=== PATIENT | female | born 1955 | race Caucasian/White ===

== ENCOUNTER → 2017-12-28 09:22 | Outpatient (CLI) | payer OTHER, MEDICARE, SELFPAY ==
[2017-12-28 10:54] LABS: Free T4, Direct Thyroxine 1.07 ng/dL (0.78-2.19)
== END ==
PROVIDERS: PCP Internal Medicine; Visit Provider Internal Medicine
DX: R00.2 Palpitations (principal)
CPT/HCPCS: 36415; 84436; 84439

== ENCOUNTER 2018-01-10 14:59 | Emergency (ER) | payer OTHER, MEDICARE, SELFPAY ==
--- NOTE | 2018-01-10 | DI.RAD.S_ITS ---
PROCEDURE: XR FOOT RT MIN 3V INDICATIONS: ROLLED ANKLE AND FOOT TECHNIQUE: 3 views of the foot were acquired. COMPARISON: [facility], CR, XR ANKLE RT MIN 3V, 01/10/2018, 15:05. FINDINGS: Bones: There is a minimally displaced first metatarsal shaft fracture. Additionally, there is a nondisplaced fracture at the base of the second proximal phalanx. Cortical irregularity in the superior aspect of the anterior process of talus. Surgical anchors in calcaneus consistent with prior Achilles tendon repair. Soft tissues: No tibiotalar joint effusion. Achilles tendon appears thickened. IMPRESSION: 1. Minimally displaced first metatarsal shaft fracture. 2. Nondisplaced fracture at the second proximal phalangeal base. 3. Cortical irregularity in the superior aspect of the anterior process of talus. Dictated by: Avery Pizarro M.D. on 01/10/2018 at 15:52 Approved by: Avery Pizarro M.D. on 01/10/2018 at 15:56
[2018-01-10 15:20] VITALS: BP 135/86; PULSE 69; RESP 15; TEMP 37.1; O2SAT 96; BMI 33.7
--- NOTE | 2018-01-10 15:22 | DI.RAD.S_ITS ---
PROCEDURE: XR ANKLE RT MIN 3V INDICATIONS: right ankle injury TECHNIQUE: 3 views of the ankle were acquired. COMPARISON: None. FINDINGS: Bones: Small osseous densities are noted in the anterior process of talus consistent with fracture. Ankle mortise is normally aligned. No suspicious bony lesions. Surgical anchors are noted in calcaneus for dislocated tendon attachment. Soft tissues: No tibiotalar joint effusion. Achilles tendon appears thickened distally. IMPRESSION: 1. Fracture of the anterior process talus. 2. Achilles tendon repair. Dictated by: Avery Pizarro M.D. on 01/10/2018 at 15:44 Approved by: Avery Pizarro M.D. on 01/10/2018 at 15:48
--- NOTE | 2018-01-10 16:05 | ED.FALL ---
HPI - Fall <Malissa Levy PA-C - Last Filed: 01/10/18 22:35> General Chief Complaint: Fall Stated Complaint: RT FOOT/ANKLE, LT SHOULDER PAIN Time Seen by Provider: 01/10/18 16:05 Source: patient Mode of arrival: ambulatory Limitations: no limitations History of Present Illness HPI Narrative: This 62-year-old female was walking on a wet shop floor when her right foot went out from under her. She states that her right ft twisted and pitch forward. She may have hit a refrigerator with it, not sure. She states that she landed on the back of her legs. She has had foot and ankle pain since then. Tried to walk with a flatfoot but painful. She states her sensation is limited due to neuropathy. She denies any other injuries such as head contusion. She denies new back or neck pain. Related Data Allergies Allergy/AdvReac Type Severity Reaction Status Date / Time Penicillins [PENICILLINS] Allergy Unknown Verified 01/10/18 15:20 Sulfa (Sulfonamide Allergy Unknown Verified 01/10/18 15:20 Antibiotics) [SULFA (SULFONAMIDE ANTIBIOTICS)] Review of Systems <Malissa Levy PA-C - Last Filed: 01/10/18 22:35> Review of Systems All systems reviewed & are unremarkable except as noted in HPI and below Exam <Malissa Levy PA-C - Last Filed: 01/10/18 22:35> Narrative Exam Narrative: GENERAL APPEARANCE: Patient sitting comfortably, in no distress. LUNGS: Clear to auscultation bilaterally. HEART: Rate and rhythm regular without murmur, normal S1 and S2, no S3 or S4. MS: Right foot and ankle there is moderate effusion. She has tenderness over the 1st proximal to mid MT, minimal TTP over 2nd MT. She is able to plantar and dorsiflex the toes. No tenderness over the remaining metatarsals or toes. She does have tenderness over the posterior heel. Achilles is intact by palpation. There is no effusion over the right knee, full flexion and extension without tenderness. NEUROVASCULAR: Right foot is warm and pink. Sensation to touch is intact. PT and DP pulses 1+ and 2+ respectively. PT and DP pulses 2+ bilaterally on the right. Pulses are strong on Doppler. Initial Vital Signs Initial Vital Signs: Vital Signs Temperature 98.7 F 01/10/18 15:20 Pulse Rate 69 01/10/18 15:20 Respiratory Rate 15 01/10/18 15:20 Blood Pressure 135/86 H 01/10/18 15:20 Pulse Oximetry 96 01/10/18 15:20 <John Park MD - Last Filed: 01/11/18 18:18> Initial Vital Signs Initial Vital Signs: Vital Signs Temperature 98.7 F 01/10/18 15:20 Pulse Rate 69 01/10/18 15:20 Respiratory Rate 15 01/10/18 15:20 Blood Pressure 135/86 H 01/10/18 15:20 Pulse Oximetry 96 01/10/18 15:20 Course <Malissa Levy PA-C - Last Filed: 01/10/18 22:35> Additional Information: Patient does not have evidence of vascular compromise. She does have effusion which makes palpating her pulses more difficult. She has a history of neuropathy and sensation appears to be at baseline. I reviewed her x-rays with Dr. Park and her talus fracture appears to be more of a nondisplaced avulsion. He advised posterior splint and follow up with Orthopedics, and patient is agreeable with this plan. Orders Ordered: Discontinued Medications Hydrocodone Bitart/Acetaminophen (Vicodin Prepack) 1 bottle MISC SEEINSTR ONE Stop: 01/10/18 18:26 Last Admin: 01/10/18 18:36 Dose: 1 bottle Vital Signs - 8 hr 01/10/18 15:20 01/10/18 17:15 01/10/18 18:28 Temperature 98.7 F Pulse Rate 69 64 56 L Respiratory Rate 15 14 17 Blood Pressure 135/86 H Blood Pressure [Left Arm] 158/90 H 168/69 H Pulse Oximetry 96 95 100 <John Park MD - Last Filed: 01/11/18 18:18> Orders Ordered: Discontinued Medications Hydrocodone Bitart/Acetaminophen (Vicodin Prepack) 1 bottle MISC SEEINSTR ONE Stop: 01/10/18 18:26 Last Admin: 01/10/18 18:36 Dose: 1 bottle Vital Signs - 8 hr 01/10/18 15:20 01/10/18 17:15 01/10/18 18:28 Temperature 98.7 F Pulse Rate 69 64 56 L Respiratory Rate 15 14 17 Blood Pressure 135/86 H Blood Pressure [Left Arm] 158/90 H 168/69 H Pulse Oximetry 96 95 100 MDM - Fall <Malissa Levy PA-C - Last Filed: 01/10/18 22:35> Imaging Data extremity: Radiologist's impression: View Report History [address] [address] XRay Report Signed Patient: Luz Mireles MR#: [id number] : 1955 Acct:[id number] Age/Sex: 62 / F Date of Service: 01/10/18 Loc: ED Accession Number: [id number] Procedure: XR foot RT min 3V Ordering Provider: Malissa Levy P.A-C PROCEDURE: XR FOOT RT MIN 3V INDICATIONS: ROLLED ANKLE AND FOOT TECHNIQUE: 3 views of the foot were acquired. COMPARISON: [facility], , XR ANKLE RT MIN 3V, 01/10/2018, 15:05. FINDINGS: Bones: There is a minimally displaced first metatarsal shaft fracture. Additionally, there is a nondisplaced fracture at the base of the second proximal phalanx. Cortical irregularity in the superior aspect of the anterior process of talus. Surgical anchors in calcaneus consistent with prior Achilles tendon repair. Soft tissues: No tibiotalar joint effusion. Achilles tendon appears thickened. IMPRESSION: 1. Minimally displaced first metatarsal shaft fracture. 2. Nondisplaced fracture at the second proximal phalangeal base. View Report History [address] [address] XRay Report Signed Patient: Luz Mireles MR#: [id number] : 1955 Acct:[id number] Age/Sex: 62 / F Date of Service: 01/10/18 Loc: ED Accession Number: [id number] Procedure: XR ankle RT min 3V Ordering Provider: Malissa Levy P.A-C PROCEDURE: XR ANKLE RT MIN 3V INDICATIONS: right ankle injury TECHNIQUE: 3 views of the ankle were acquired. COMPARISON: None. FINDINGS: Bones: Small osseous densities are noted in the anterior process of talus consistent with fracture. Ankle mortise is normally aligned. No suspicious bony lesions. Surgical anchors are noted in calcaneus for dislocated tendon attachment. Soft tissues: No tibiotalar joint effusion. Achilles tendon appears thickened distally. IMPRESSION: 1. Fracture of the anterior process talus. 2. Achilles tendon repair. Dictated by: Avery Pizarro M.D. on 01/10/2018 at 15:44 Approved by: Avery Pizarro M.D. on 01/10/2018 at 15:48 3. Cortical irregularity in the superior aspect of the anterior process of talus. Dictated by: Avery Pizaror M.D. on 01/10/2018 at 15:52 Approved by: Avery Pizarro M.D. on 01/10/2018 at 15:56 Discharge Plan Departure Patient Disposition: Home, Self-Care Clinical Impression: Avulsion fracture of talus, Multiple closed fractures of metatarsal bone Discharge Date/Time: 01/10/18 18:40 Interventions: ED Discharge Assessment Last Done: 01/10/18 19:00 Instructions: DI for Foot Fracture, DI for Talus Fracture Activity Restrictions/Additional Instructions: Please keep your foot in the splint and use crutches whenever weight-bearing. Do not put weight on the foot. Rest and elevate the leg and foot as much as possible. Take Tylenol as needed for pain. Call [facility] 1st thing tomorrow morning and let them know you have fractures in the Talus bone as well as the bones in your foot and need to be seen early next week or tomorrow for follow-up. Let them know your a previous patient of Dr. Puente. Return if you have increased pain, swelling or other problems in the interim. Referrals: [facility] [Provider Group] Noah Ray MD [Primary Care Provider] - <John Park MD - Last Filed: 01/11/18 18:18> Cosign ED Attending Sadafature Attestation: I was available in the emergency department to answer questions and assist if needed. I agree with the document content and management plan.
--- NOTE | 2018-01-10 16:08 | ED_ITS ---
HPI - Fall <Malissa Levy PA-C - Last Filed: 01/10/18 22:35> General Chief Complaint: Fall Stated Complaint: RT FOOT/ANKLE, LT SHOULDER PAIN Time Seen by Provider: 01/10/18 16:05 Source: patient Mode of arrival: ambulatory Limitations: no limitations History of Present Illness HPI Narrative: This 62-year-old female was walking on a wet shop floor when her right foot went out from under her. She states that her right ft twisted and pitch forward. She may have hit a refrigerator with it, not sure. She states that she landed on the back of her legs. She has had foot and ankle pain since then. Tried to walk with a flatfoot but painful. She states her sensation is limited due to neuropathy. She denies any other injuries such as head contusion. She denies new back or neck pain. Related Data Allergies Allergy/AdvReac Type Severity Reaction Status Date / Time Penicillins [PENICILLINS] Allergy Unknown Verified 01/10/18 15:20 Sulfa (Sulfonamide Allergy Unknown Verified 01/10/18 15:20 Antibiotics) [SULFA (SULFONAMIDE ANTIBIOTICS)] Review of Systems <Malissa Levy PA-C - Last Filed: 01/10/18 22:35> Review of Systems All systems reviewed & are unremarkable except as noted in HPI and below Exam <Malissa Levy PA-C - Last Filed: 01/10/18 22:35> Narrative Exam Narrative: GENERAL APPEARANCE: Patient sitting comfortably, in no distress. LUNGS: Clear to auscultation bilaterally. HEART: Rate and rhythm regular without murmur, normal S1 and S2, no S3 or S4. MS: Right foot and ankle there is moderate effusion. She has tenderness over the 1st proximal to mid MT, minimal TTP over 2nd MT. She is able to plantar and dorsiflex the toes. No tenderness over the remaining metatarsals or toes. She does have tenderness over the posterior heel. Achilles is intact by palpation. There is no effusion over the right knee, full flexion and extension without tenderness. NEUROVASCULAR: Right foot is warm and pink. Sensation to touch is intact. PT and DP pulses 1+ and 2+ respectively. PT and DP pulses 2+ bilaterally on the right. Pulses are strong on Doppler. Initial Vital Signs Initial Vital Signs: Vital Signs Temperature 98.7 F 01/10/18 15:20 Pulse Rate 69 01/10/18 15:20 Respiratory Rate 15 01/10/18 15:20 Blood Pressure 135/86 H 01/10/18 15:20 Pulse Oximetry 96 01/10/18 15:20 <John Park MD - Last Filed: 01/11/18 18:18> Initial Vital Signs Initial Vital Signs: Vital Signs Temperature 98.7 F 01/10/18 15:20 Pulse Rate 69 01/10/18 15:20 Respiratory Rate 15 01/10/18 15:20 Blood Pressure 135/86 H 01/10/18 15:20 Pulse Oximetry 96 01/10/18 15:20 Course <Malissa Levy PA-C - Last Filed: 01/10/18 22:35> Additional Information: Patient does not have evidence of vascular compromise. She does have effusion which makes palpating her pulses more difficult. She has a history of neuropathy and sensation appears to be at baseline. I reviewed her x-rays with Dr. Park and her talus fracture appears to be more of a nondisplaced avulsion. He advised posterior splint and follow up with Orthopedics, and patient is agreeable with this plan. Orders Ordered: Discontinued Medications Hydrocodone Bitart/Acetaminophen (Vicodin Prepack) 1 bottle MISC SEEINSTR ONE Stop: 01/10/18 18:26 Last Admin: 01/10/18 18:36 Dose: 1 bottle Vital Signs - 8 hr 01/10/18 15:20 01/10/18 17:15 01/10/18 18:28 Temperature 98.7 F Pulse Rate 69 64 56 L Respiratory Rate 15 14 17 Blood Pressure 135/86 H Blood Pressure [Left Arm] 158/90 H 168/69 H Pulse Oximetry 96 95 100 <John Park MD - Last Filed: 01/11/18 18:18> Orders Ordered: Discontinued Medications Hydrocodone Bitart/Acetaminophen (Vicodin Prepack) 1 bottle MISC SEEINSTR ONE Stop: 01/10/18 18:26 Last Admin: 01/10/18 18:36 Dose: 1 bottle Vital Signs - 8 hr 01/10/18 15:20 01/10/18 17:15 01/10/18 18:28 Temperature 98.7 F Pulse Rate 69 64 56 L Respiratory Rate 15 14 17 Blood Pressure 135/86 H Blood Pressure [Left Arm] 158/90 H 168/69 H Pulse Oximetry 96 95 100 MDM - Fall <Malissa Levy PA-C - Last Filed: 01/10/18 22:35> Imaging Data extremity: Radiologist's impression: View Report History [address] [address] XRay Report Signed Patient: Luz Mireles MR#: [id number] : 1955 Acct:[id number] Age/Sex: 62 / F Date of Service: 01/10/18 Loc: ED Accession Number: [id number] Procedure: XR foot RT min 3V Ordering Provider: Malissa Levy P.A-C PROCEDURE: XR FOOT RT MIN 3V INDICATIONS: ROLLED ANKLE AND FOOT TECHNIQUE: 3 views of the foot were acquired. COMPARISON: [facility], , XR ANKLE RT MIN 3V, 01/10/2018, 15:05. FINDINGS: Bones: There is a minimally displaced first metatarsal shaft fracture. Additionally, there is a nondisplaced fracture at the base of the second proximal phalanx. Cortical irregularity in the superior aspect of the anterior process of talus. Surgical anchors in calcaneus consistent with prior Achilles tendon repair. Soft tissues: No tibiotalar joint effusion. Achilles tendon appears thickened. IMPRESSION: 1. Minimally displaced first metatarsal shaft fracture. 2. Nondisplaced fracture at the second proximal phalangeal base. View Report History [address] [address] XRay Report Signed Patient: Luz Mireles MR#: [id number] : 1955 Acct:[id number] Age/Sex: 62 / F Date of Service: 01/10/18 Loc: ED Accession Number: [id number] Procedure: XR ankle RT min 3V Ordering Provider: Malissa Levy P.A-C PROCEDURE: XR ANKLE RT MIN 3V INDICATIONS: right ankle injury TECHNIQUE: 3 views of the ankle were acquired. COMPARISON: None. FINDINGS: Bones: Small osseous densities are noted in the anterior process of talus consistent with fracture. Ankle mortise is normally aligned. No suspicious bony lesions. Surgical anchors are noted in calcaneus for dislocated tendon attachment. Soft tissues: No tibiotalar joint effusion. Achilles tendon appears thickened distally. IMPRESSION: 1. Fracture of the anterior process talus. 2. Achilles tendon repair. Dictated by: Avery Pizarro M.D. on 01/10/2018 at 15:44 Approved by: Avery Pizarro M.D. on 01/10/2018 at 15:48 3. Cortical irregularity in the superior aspect of the anterior process of talus. Dictated by: Avery Pizarro M.D. on 01/10/2018 at 15:52 Approved by: Avery Pizarro M.D. on 01/10/2018 at 15:56 Discharge Plan Departure Patient Disposition: Home, Self-Care Clinical Impression: Avulsion fracture of talus, Multiple closed fractures of metatarsal bone Discharge Date/Time: 01/10/18 18:40 Interventions: ED Discharge Assessment Last Done: 01/10/18 19:00 Instructions: DI for Foot Fracture, DI for Talus Fracture Activity Restrictions/Additional Instructions: Please keep your foot in the splint and use crutches whenever weight-bearing. Do not put weight on the foot. Rest and elevate the leg and foot as much as possible. Take Tylenol as needed for pain. Call [facility] 1st thing tomorrow morning and let them know you have fractures in the Talus bone as well as the bones in your foot and need to be seen early next week or tomorrow for follow-up. Let them know your a previous patient of Dr. Puente. Return if you have increased pain, swelling or other problems in the interim. Referrals: [facility] [Provider Group] Noah Ray MD [Primary Care Provider] - <John Park MD - Last Filed: 01/11/18 18:18> Cosign ED Attending Sadafature Attestation: I was available in the emergency department to answer questions and assist if needed. I agree with the document content and management plan.
[2018-01-10 17:15] VITALS: BP 158/90; PULSE 64; RESP 14; O2SAT 95
[2018-01-10 18:28] VITALS: BP 168/69; PULSE 56; RESP 17; O2SAT 100
[2018-01-10] MEDS: HYDROCODONE/ACET 5/325 PREPACK 1 BOTTLE MISC (18:36)
== END 2018-01-10 18:40 | disposition home or self-care (01) ==
PROVIDERS: Emergency Provider Internal Medicine; Family Provider Internal Medicine; PCP Internal Medicine
DX: S92.151A Displaced avulsion fracture (chip fracture) of right talus, initial encounter for closed fracture (principal); S92.301A Fracture of unspecified metatarsal bone(s), right foot, initial encounter for closed fracture; W01.0XXA Fall on same level from slipping, tripping and stumbling without subsequent striking against object, initial encounter; Y92.513 Shop (commercial) as the place of occurrence of the external cause
CPT/HCPCS: 29515; 73610; 73630; 99283

== ENCOUNTER → 2018-06-11 12:34 | Outpatient (CLI) | payer OTHER, MEDICARE, SELFPAY ==
--- NOTE | 2018-06-11 | DI.MG.S_ITS ---
BILATERAL DIGITAL SCREENING MAMMOGRAM 3D/2D WITH CAD: 06/11/2018 CLINICAL: Routine screening. Comparison is made to exams dated: 10/07/2013 mammogram, 03/22/2007 mammogram, and 07/15/2004 mammogram - [facility]. The tissue of both breasts is predominantly fatty. Current study was also evaluated with a Computer Aided Detection (CAD) system. No significant masses, calcifications, or other findings are seen in either breast. There has been no significant interval change. IMPRESSION: NEGATIVE There is no mammographic evidence of malignancy. A 1 year screening mammogram is recommended. This exam was interpreted at Station ID: [id number]. NOTE: For mammograms, a report in lay terms will be sent to the patient. Approximately 15% of breast malignancies will not be visualized mammographically. In the management of a palpable breast mass, a negative mammogram must not discourage biopsy of a clinically suspicious lesion. Electronically Signed By: Yung perez/liban:06/12/2018 07:42:25 letter sent: Normal Exam ACR BI-RADS Category 1: Negative [id number]
--- NOTE | 2018-06-11 | DI.RAD.S_ITS ---
This blank DEXA report has been sent in error by the PACS system. The correct and complete report will be forthcoming in 1-2 days. Thank you for your patience and understanding. Dictated by: Armando Thorne M.D. on 06/11/2018 at 14:13 Approved by: Armando Thorne M.D. on 06/11/2018 at 14:13
== END ==
PROVIDERS: Family Provider Internal Medicine; PCP Internal Medicine; Visit Provider Internal Medicine
DX: Z12.31 Encounter for screening mammogram for malignant neoplasm of breast (principal); Z78.0 Asymptomatic menopausal state; Z85.42 Personal history of malignant neoplasm of other parts of uterus; Z90.722 Acquired absence of ovaries, bilateral; Z87.891 Personal history of nicotine dependence
CPT/HCPCS: 77063; 77067; 77080

== ENCOUNTER → 2018-08-20 07:37 | Outpatient (CLI) | payer OTHER, MEDICARE, SELFPAY ==
[2018-08-20 09:27] LABS: Alanine Aminotransferase 29 IU/L (9-52); Albumin 4.4 g/dL (3.5-5.0); Albumin Globulin Ratio 1.3 (1.0-2.8); Alkaline Phosphatase 105 U/L (38-126); Aspartate Aminotransferase 23 IU/L (14-36); BUN Creatinine Ratio 21.4 (6-22); Bilirubin Total 0.5 mg/dL (0.2-1.3); Blood Urea Nitrogen 30 mg/dL (7-17); Calcium 8.8 mg/dL (8.4-10.2); Carbon Dioxide 32 mmol/L (22-32); Chloride 98 mmol/L (98-107); Cholesterol 123 mg/dL (140-199); Estimated Glomerular Filt Rate 37.7 mL/min (>60); Globulin 3.5 g/dL (1.7-4.1); Glucose 147 mg/dL (80-110); HDL Cholesterol 33 mg/dL (40-60); HEMOLYSIS < 15 (0-50); LDL Cholesterol Calculated 69 mg/dL (<100); Potassium 3.7 mmol/L (3.4-5.1); Sodium 140 mmol/L (137-145); Total Protein 7.9 g/dL (6.3-8.2); Triglycerides 105 mg/dL (35-150)
[2018-08-20 09:43] LABS: Free T4, Direct Thyroxine 1.08 ng/dL (0.78-2.19); T4 Total Thyroxine 8.67 ug/dL (5.5-11.0)
[2018-08-20 09:56] LABS: Thyroid Stimulating Hormone 1.14 uIU/mL (0.47-4.68)
== END ==
PROVIDERS: PCP Internal Medicine; Visit Provider Nurse Practitioner
DX: E78.5 Hyperlipidemia, unspecified (principal); R00.2 Palpitations; E83.42 Hypomagnesemia
CPT/HCPCS: 36415; 80053; 80061; 83735; 84436; 84439; 84443

== ENCOUNTER → 2018-09-25 16:37 | Outpatient (CLI) | payer OTHER, MEDICARE, SELFPAY ==
[2018-09-25 18:13] LABS: Blood Urea Nitrogen 24 mg/dL (7-17); Calcium 9.7 mg/dL (8.4-10.2); Carbon Dioxide 29 mmol/L (22-32); Chloride 101 mmol/L (98-107); Estimated Glomerular Filt Rate 55.6 mL/min (>60); Glucose 109 mg/dL (80-110); HEMOLYSIS < 15 (0-50); Sodium 142 mmol/L (137-145)
== END ==
PROVIDERS: Family Provider Internal Medicine; PCP Internal Medicine; Visit Provider Internal Medicine
DX: I10 Essential (primary) hypertension (principal)
CPT/HCPCS: 36415; 80048

== ENCOUNTER → 2018-12-25 09:28 | Outpatient (CLI) | payer OTHER, MEDICARE, SELFPAY ==
[2018-12-25 11:55] LABS: BUN Creatinine Ratio 16.2 (6-22); Blood Urea Nitrogen 21 mg/dL (7-17); Calcium 8.6 mg/dL (8.4-10.2); Carbon Dioxide 31 mmol/L (22-32); Estimated Glomerular Filt Rate 41.1 mL/min (>60); Glucose 110 mg/dL (80-110); HEMOLYSIS < 15 (0-50); Potassium 4.8 mmol/L (3.4-5.1); Sodium 143 mmol/L (137-145)
[2018-12-25 12:08] LABS: Chloride 106 mmol/L (98-107)
== END ==
PROVIDERS: Family Provider Internal Medicine; PCP Internal Medicine; Visit Provider Internal Medicine
DX: R06.09 Other forms of dyspnea (principal)
CPT/HCPCS: 36415; 80048

== ENCOUNTER → 2018-12-27 09:22 | Outpatient (CLI) | payer OTHER, MEDICARE, SELFPAY ==
--- NOTE | 2018-12-27 10:58 | P.PCN_ITS ---
Cardiac Stress Test Report Referral & Results Date Patient Seen: 12/27/18 Requesting provider: Terrie Valentine Indication: Dyspnea Rest ECG: Unremarkable Procedure Note: Today following both written and verbal informed consent the patient was exercised according to a standard Jerry protocol patient went for a total of for minutes 4 seconds achieving a maximum heart rate of 147 maximum systolic blood pressure of 170. This is approximately 7.0 METS. Exercise was terminated at this point because of hip pain. Patient was also given Cardiolite through a previously started Hep-Lock IV by the licensed nuclear control room operator approximately 1 minute prior to the cessation of exercise. There are no ST-T segment changes Normal heart rate and blood pressure response to exercise Frequent multifocal PVCs. She had brief runs of ventricular bigeminy and multifocal ventricular couplets. Per patient this is unknown dysrhythmia. Functional aerobic impairment rates about 18% in the sedentary scale Impression: No clear evidence of ischemia per ECG criteria Somewhat limited exercise capacity due to orthopedic symptoms Dysrhythmia as above Please see perfusion imaging report as well Please note: Actual ECG tracings can be found in the PACS system.
--- NOTE | 2018-12-31 07:55 | DI.NM.S_ITS ---
DATE OF SERVICE: STUDY TYPE: Two-day treadmill nuclear stress test. RADIOISOTOPES: 25.9 mCi of Tc-99m used for rest and 25.6 mCi of Tc-99m used for stress. SYMPTOMS: No chest pain or angina during the study. REASON FOR STUDY: Shortness of breath. ECG: Sinus rhythm with no significant ST changes at rest. No ischemic ST changes with exercise. Frequent PVCs throughout the whole study. CLINICAL: The patient exercised for 4 minutes and 4 seconds reaching 7.0. METs, WIL +35% on active scale. Target heartrate achieved. Appropriate blood pressure response to exercise. PERFUSION IMAGES: There is a moderately severe fixed apical defect consistent with prior infarction. There is a moderately-severe distal anterior defect at rest that improved with stress and resolved with prone imaging, suggesting attenuation artifact. GATED IMAGES: Normal left ventricular size, wall motion, and systolic function (post-stress EF 77%). TID ratio is normal at 0.88. Mhzz-ca-xhsof ratio is 0.31, normal. CONCLUSIONS: Abnormal treadmill nuclear stress test consistent with prior small apical infarct. 1. Moderately severe fixed defect in the apex consistent with prior infarct with no significant ischemia. 2. Normal left ventricle size, wall motion, and systolic function (post-stress ejection fraction (EF) 77%). 3. No ECG evidence of ischemia. Frequent premature ventricular contractions (PVCs) during the entire study. 4. No angina during the study. 5. Moderately reduced exercise tolerance (7.0 METs, WIL +35% on active scale). Target heartrate achieved. Appropriate blood pressure response to exercise. 6. Compared to the prior nuclear stress test done on 05/11/2016, there is no significant change. Luz Mireles - PB/fn/ts doc#: [id number]/job#: [id number] dd: 12/28/2018 12:53:00 dt: 12/29/2018 06:15:00 DICTATING /COPIES TO: Josie Wheeler MD COPIES MNE: ASMITA
== END ==
PROVIDERS: Family Provider Internal Medicine; PCP Internal Medicine; Visit Provider Internal Medicine
DX: R06.02 Shortness of breath (principal); R06.09 Other forms of dyspnea; I49.3 Ventricular premature depolarization
CPT/HCPCS: 78452; 93016; 93017; 93018; A9502

== ENCOUNTER → 2019-07-01 07:13 | Outpatient (CLI) | payer OTHER, MEDICARE, SELFPAY ==
[2019-07-01 08:03] LABS: Alanine Aminotransferase 19 IU/L (<35); Albumin 4.1 g/dL (3.5-5.0); Albumin Globulin Ratio 1.2 (1.0-2.8); Alkaline Phosphatase 115 U/L (38-126); Aspartate Aminotransferase 23 IU/L (14-36); BUN Creatinine Ratio 12.3 (6-22); Bilirubin Total 0.6 mg/dL (0.2-1.3); Blood Urea Nitrogen 16 mg/dL (7-17); Calcium 8.6 mg/dL (8.4-10.2); Carbon Dioxide 29 mmol/L (22-32); Chloride 103 mmol/L (98-107); Cholesterol 128 mg/dL (140-199); Globulin 3.3 g/dL (1.7-4.1); Glucose 143 mg/dL (80-110); HDL Cholesterol 28 mg/dL (40-60); HEMOLYSIS < 15 (0-50); LDL Cholesterol Calculated 73 mg/dL (<100); Potassium 3.8 mmol/L (3.4-5.1); Sodium 140 mmol/L (137-145); Total Protein 7.4 g/dL (6.3-8.2); Triglycerides 133 mg/dL (35-150)
== END ==
PROVIDERS: Family Provider Internal Medicine; PCP Internal Medicine; Visit Provider Internal Medicine
DX: I10 Essential (primary) hypertension (principal); E78.00 Pure hypercholesterolemia, unspecified
CPT/HCPCS: 36415; 80053; 80061

== ENCOUNTER → 2019-11-20 07:41 | Outpatient (CLI) | payer OTHER, MEDICARE, SELFPAY ==
[2019-11-20 08:23] LABS: Cholesterol 102 mg/dL (140-199); HDL Cholesterol 39 mg/dL (40-60); LDL Cholesterol Calculated 39 mg/dL (<100); Triglycerides 118 mg/dL (35-150)
== END ==
PROVIDERS: Family Provider Internal Medicine; PCP Internal Medicine; Referring Provider Internal Medicine; Visit Provider Internal Medicine
DX: E78.5 Hyperlipidemia, unspecified (principal)
CPT/HCPCS: 36415; 80061

== ENCOUNTER → 2019-12-06 06:58 | Outpatient (CLI) | payer OTHER, MEDICARE, SELFPAY ==
[2019-12-06 08:07] LABS: Add Manual Diff / Slide Review NO; Basophils Absolute Auto 100 /uL (0-100); Basophils Percent Auto 0.9 % (0-2); Eosinophils Absolute Auto 300 /uL (0-450); Eosinophils Percent Auto 4.1 % (2-4); Hematocrit 39.3 % (36-46); Hemoglobin 13.5 g/dL (12.0-16.0); Lymphocytes Absolute Auto 2700 /uL (1100-4500); Lymphocytes Percent Auto 31.5 % (25-40); Mean Corpuscular HGB Conc 34.4 % (30-36); Mean Corpuscular Hemoglobin 31.1 PG (26-34); Mean Corpuscular Volume 90.3 fL (80-100); Monocytes Absolute Auto 600 /uL (0-900); Monocytes Percent Auto 7.4 % (3-14); Neutrophils Absolute Auto 4800 /uL (1500-7000); Neutrophils Percent Auto 56.1 % (50-75); Platelet Count 224 X10^3/uL (150-400); Red Blood Cell Count 4.35 X10^6/uL (4.0-5.2); White Blood Cell Count 8.5 X10^3/uL (4.5-11.0)
[2019-12-06 08:19] LABS: Alanine Aminotransferase 19 IU/L (<35); Albumin 4.3 g/dL (3.5-5.0); Albumin Globulin Ratio 1.3 (1.0-2.8); Alkaline Phosphatase 82 U/L (38-126); Aspartate Aminotransferase 29 IU/L (14-36); Bilirubin Total 0.4 mg/dL (0.2-1.3); Blood Urea Nitrogen 27 mg/dL (7-17); Calcium 9.5 mg/dL (8.4-10.2); Carbon Dioxide 27 mmol/L (22-32); Chloride 105 mmol/L (98-107); Estimated Glomerular Filt Rate 50.8 mL/min (>60); Globulin 3.3 g/dL (1.7-4.1); Glucose 158 mg/dL (80-110); HEMOLYSIS 45 (0-50); Potassium 5.1 mmol/L (3.4-5.1); Sodium 143 mmol/L (137-145); Total Protein 7.6 g/dL (6.3-8.2)
[2019-12-06 08:34] LABS: Free T4, Direct Thyroxine 0.99 ng/dL (0.78-2.19)
[2019-12-06 08:48] LABS: Thyroid Stimulating Hormone 2.76 uIU/mL (0.47-4.68)
[2019-12-06 09:19] LABS: Hemoglobin A1C% w Est Avg Glu 7.1 % (4.0-6.0)
== END ==
PROVIDERS: Family Provider Internal Medicine; PCP Internal Medicine; Referring Provider Internal Medicine; Visit Provider Internal Medicine
DX: R53.82 Chronic fatigue, unspecified (principal); E11.9 Type 2 diabetes mellitus without complications; M15.0 Primary generalized (osteo)arthritis; I48.11 Longstanding persistent atrial fibrillation
CPT/HCPCS: 36415; 80053; 83036; 84439; 84443; 85025

== ENCOUNTER 2020-04-19 03:18 | Emergency (ER) | payer MEDICARE, OTHER, SELFPAY ==
[2020-04-19] VITALS (17 sets, daily range): BP systolic 104–193; BP diastolic 52–81; PULSE 51–69; RESP 12–29; TEMP 36.6; O2SAT 92–96; BMI 34.9
--- NOTE | 2020-04-19 03:24 | DI.RAD.S_ITS ---
PROCEDURE: XR CHEST 1V INDICATIONS: chest pain TECHNIQUE: One view of the chest was acquired. COMPARISON: [facility], , CHEST 2 VIEW, 06/07/2017, 7:38. FINDINGS: Surgical changes and devices: Postsurgical changes are redemonstrated within the mediastinum and lower cervical spine. Lungs and pleura: There is mild interstitial prominence. No focal consolidation. No pleural effusions or pneumothorax. Mediastinum: Heart size is enlarged. Bones and chest wall: No suspicious bony lesions. Overlying soft tissues appear unremarkable. IMPRESSION: 1. Mild interstitial prominence which may represent mild interstitial pulmonary edema or chronic changes. Dictated by: Yung Swan M.D. on 04/19/2020 at 8:06 Approved by: Yung Swan M.D. on 04/19/2020 at 8:07
--- NOTE | 2020-04-19 03:45 | ED_ITS ---
HPI - Chest Pain General Chief Complaint: Chest Pain Stated Complaint: thinks having angina attack Time Seen by Provider: 04/19/20 03:45 Source: patient Mode of arrival: Ambulatory History of Present Illness HPI narrative: 65-year-old woman presents with chest pain that started at 2:30 a.m. and awoke her from sleep. She describes it is similar to pain associated with the heart attack she had prior to her 2 vessel CABG. First episode of this was 4 nights ago, described as bilateral jaw pain into her neck with a fluttery feeling into her chest as ?if I am trying to go into atrial fibrillation again?. This episode resolved after 3 nitroglycerin. She spoke to her wildlife enforcement major, Dr. Valentine, after the event who recommended that she go to the emergency room should it happen again. In the interval she has not been having exertional dyspnea, palpitations, chest pain during the day, diaphoresis, orthopnea, lower extremity edema. She also denies fevers chills, cough, wheezing, vomiting, nausea, diarrhea. Tonight she again awoke at 2:30 a.m. with bilateral jaw pain radiating down her throat toward her chest with a sensation that she was ?trying to go back into atrial fibrillation?. She came to the emergency room for further evaluation. She is currently anticoagulated on Eliquis. Related Data Allergies Allergy/AdvReac Type Severity Reaction Status Date / Time Penicillins [PENICILLINS] Allergy Unknown Verified 04/19/20 03:27 Sulfa (Sulfonamide Allergy Unknown Verified 04/19/20 03:27 Antibiotics) [SULFA (SULFONAMIDE ANTIBIOTICS)] Review of Systems Review of Systems Narrative: Remainder of review of systems including constitutional, ENT, cardiovascular, respiratory, GI, , musculoskeletal, skin, neurologic and psychiatric systems reviewed and are unremarkable except as noted in HPI. Patient History Medical History CAD (coronary artery disease) (Acute) Neuropathy (Acute) Spinal stenosis in cervical region (Acute) Spinal stenosis of lumbar region (Acute) Surgical History H/O cervical spine surgery (Acute) History of lumbar surgery (Acute) Hx of CABG (Acute) Social History Smoking Status: Current every day smoker Smoking Status: Current every day smoker alcohol intake frequency: 0-2 drinks per day Substance Use Type: marijuana Exam Narrative Exam Narrative: General: Healthy appearing, in no acute distress. Able to give a complete and coherent history. Well-nourished well-developed HEENT: Moist mucous membranes, normal sclera with reactive pupils, Neck: No JVD, supple Respiratory: Lungs are clear to auscultation, no wheezing no rales no rhonchi. Full and symmetrical air movement Cardiac: Regular rate and rhythm no murmurs no bruits Abdomen: Soft nontender good bowel tones, no flank pain Skin: Warm and dry, no rashes Neurologic: Grossly neurologically intact with no obvious asymmetries or abnormalities Extremities: No trauma, well perfused Psych: Cooperative, appropriate insight and affect Initial Vital Signs Initial Vital Signs: Vital Signs Temperature 98 F 04/19/20 03:25 Pulse Rate 60 04/19/20 03:25 Respiratory Rate 12 04/19/20 03:25 Blood Pressure 191/80 H 04/19/20 03:25 Pulse Oximetry 96 04/19/20 03:25 Course Orders Ordered: ED Orders 04/19/20 03:24 XR chest 1V Stat EKG-12 Lead Stat 04/19/20 03:47 Complete Blood Count AUTO DIFF Stat Comprehensive Metabolic Panel Stat Lipase Stat Partial Thromboplastin Time Stat Prothrombin Time INR Stat Troponin & CK Cardiac Panel Stat 04/19/20 04:21 EKG-12 Lead Stat 04/19/20 04:45 COVID19 -ED/INPAT/OR/L&D Stat Discontinued Medications Aspirin (Aspirin Chew) 324 mg PO NOW ONE Stop: 04/19/20 03:53 Last Admin: 04/19/20 03:57 Dose: 324 mg Documented by: RANDA Heparin Sodium (Porcine) (Heparin) 7,500 unit IV NOW ONE Stop: 04/19/20 04:22 Last Admin: 04/19/20 04:26 Dose: 7,500 unit Documented by: RANDA Heparin Sodium/Dextrose (Heparin Drip) 25,000 unit in 500 mls @ 26.562 mls/hr IV CONT LIDIA; Protocol Last Titration: 04/19/20 06:05 Dose: 12 units/kg/hr, 26.562 mls/hr Documented by: Admin: 04/19/20 04:27 Dose: 12 units/kg/hr, 26.562 mls/hr Documented by: RANDA Nitroglycerin (Nitrostat) 0.4 mg SL [id number] PRN PRN Reason: Chest Pain Last Admin: 04/19/20 03:58 Dose: 0.4 mg Documented by: RANDA Nitroglycerin (Nitro-Bid) 0.5 inch TOP NOW ONE Stop: 04/19/20 04:34 Last Admin: 04/19/20 04:37 Dose: 0.5 inch Documented by: YINKA Vital Signs Vital signs: Vital Signs - 8 hr 04/19/20 03:25 04/19/20 03:58 04/19/20 04:07 Temperature 98 F Pulse Rate 60 69 60 Respiratory Rate 12 29 H Blood Pressure 191/80 H 193/81 H Pulse Oximetry 96 93 04/19/20 04:08 04/19/20 04:10 04/19/20 04:15 Temperature Pulse Rate 59 L 57 L 56 L Respiratory Rate 16 18 21 Blood Pressure 132/63 131/67 118/62 Pulse Oximetry 96 92 92 04/19/20 04:21 04/19/20 04:26 04/19/20 04:31 Temperature Pulse Rate 56 L 53 L 54 L Respiratory Rate 21 21 20 Blood Pressure 123/62 104/52 L 148/66 H Pulse Oximetry 93 95 95 04/19/20 04:41 04/19/20 04:50 04/19/20 05:12 Temperature Pulse Rate 53 L 57 L 54 L Respiratory Rate 19 22 27 H Blood Pressure 155/65 H 151/67 H 139/60 Pulse Oximetry 96 95 95 04/19/20 05:21 04/19/20 05:30 04/19/20 05:31 Temperature Pulse Rate 54 L 51 L 51 L Respiratory Rate 23 25 H 20 Blood Pressure 144/64 H 143/59 H Pulse Oximetry 95 95 94 04/19/20 05:41 04/19/20 05:50 Temperature Pulse Rate 53 L 54 L Respiratory Rate 24 25 H Blood Pressure 117/56 L 144/63 H Pulse Oximetry 95 96 MDM - Chest Pain Medical Records Data Attestation: I reviewed the patient's medical records. Lab Data Attestation: I reviewed the patient's lab results. Result diagrams: 04/19/20 03:47 04/19/20 03:47 Labs: Lab Results 04/19/20 04/19/20 04/19/20 Range/Units 03:47 03:47 03:47 WBC 7.9 (4.5-11.0) X10^3/uL RBC 4.57 (4.0-5.2) X10^6/uL Hgb 14.0 (12.0-16.0) g/dL Hct 40.7 (36-46) % MCV 89.1 (80-100) fL MCH 30.6 (26-34) PG MCHC 34.4 (30-36) % RDW 14.1 (11.6-14.8) % Plt Count 210 (150-400) X10^3/uL Neut % (Auto) 43.0 L (50-75) % Lymph % (Auto) 43.1 H (25-40) % [place] % (Auto) 9.0 (3-14) % Eos % (Auto) 3.9 (2-4) % Baso % (Auto) 1.0 (0-2) % Neut # (Auto) 3400 (5050-4659) /uL Lymph # (Auto) 3400 (0713-1297) /uL [place] # (Auto) 700 (0-900) /uL Eos # (Auto) 300 (0-450) /uL Baso # (Auto) 100 (0-100) /uL PT 10.5 (10.1-12.7) SECONDS INR 0.9 (0.9-1.3) APTT 28 (26.4-36.2) SECONDS Sodium 142 (137-145) mmol/L Potassium 3.8 (3.4-5.1) mmol/L Chloride 105 (98-107) mmol/L Carbon Dioxide 29 (22-32) mmol/L BUN 28 H (7-17) mg/dL Creatinine 1.44 H (0.52-1.04) mg/dL Estimated GFR 36.3 L (>60) mL/min BUN/Creatinine Ratio 19.4 (6-22) Glucose 136 H (80-110) mg/dL Calcium 9.4 (8.4-10.2) mg/dL Total Bilirubin 0.4 (0.2-1.3) mg/dL AST 29 (14-36) IU/L ALT 22 (<35) IU/L Alkaline Phosphatase 113 (38-126) U/L Total Creatine Kinase 213 H (30-135) U/L CK-MB (CK-2) 3.49 H (<2.37) ng/mL CK-MB (CK-2) Rel Index 1.6 (1.5-5.0) % Troponin I 0.991 H* (0.01-0.034) ng/mL Total Protein 7.5 (6.3-8.2) g/dL Albumin 4.2 (3.5-5.0) g/dL Globulin 3.3 (1.7-4.1) g/dL Albumin/Globulin Ratio 1.3 (1.0-2.8) Lipase 156 (23-300) U/L COVID-19 PCR (Negative) 04/19/20 Range/Units 04:45 WBC (4.5-11.0) X10^3/uL RBC (4.0-5.2) X10^6/uL Hgb (12.0-16.0) g/dL Hct (36-46) % MCV (80-100) fL MCH (26-34) PG MCHC (30-36) % RDW (11.6-14.8) % Plt Count (150-400) X10^3/uL Neut % (Auto) (50-75) % Lymph % (Auto) (25-40) % [place] % (Auto) (3-14) % Eos % (Auto) (2-4) % Baso % (Auto) (0-2) % Neut # (Auto) (2992-5846) /uL Lymph # (Auto) (1101-0300) /uL [place] # (Auto) (0-900) /uL Eos # (Auto) (0-450) /uL Baso # (Auto) (0-100) /uL PT (10.1-12.7) SECONDS INR (0.9-1.3) APTT (26.4-36.2) SECONDS Sodium (137-145) mmol/L Potassium (3.4-5.1) mmol/L Chloride (98-107) mmol/L Carbon Dioxide (22-32) mmol/L BUN (7-17) mg/dL Creatinine (0.52-1.04) mg/dL Estimated GFR (>60) mL/min BUN/Creatinine Ratio (6-22) Glucose (80-110) mg/dL Calcium (8.4-10.2) mg/dL Total Bilirubin (0.2-1.3) mg/dL AST (14-36) IU/L ALT (<35) IU/L Alkaline Phosphatase (38-126) U/L Total Creatine Kinase (30-135) U/L CK-MB (CK-2) (<2.37) ng/mL CK-MB (CK-2) Rel Index (1.5-5.0) % Troponin I (0.01-0.034) ng/mL Total Protein (6.3-8.2) g/dL Albumin (3.5-5.0) g/dL Globulin (1.7-4.1) g/dL Albumin/Globulin Ratio (1.0-2.8) Lipase (23-300) U/L COVID-19 PCR Negative (Negative) Imaging Data Chest x-ray: Attestation: I personally reviewed and interpreted this imaging study as follows: My Impression: Interstitial findings with cardiomegaly consistent with mild congestive heart failure. No acute infiltrates, no pneumothorax, no pleural effusions ECG Data Attestation: I personally reviewed and interpreted this ECG as follows: Interpretation: Sinus rhythm at a rate of 65 Normal axis, normal intervals with PVC Subtle ST depression in leads 2, AVF and V6 #2 Currently pain free after nitroglycerin ST depression inferiorly and laterally has resolved Core Measures AMI core measures followed: Yes MDM Narrative Medical decision making narrative: 65-year-old woman with chest pain that started at 2:30 a.m. this morning consisting of bilateral jaw pain, throat tightness radiating down into the left chest, associated with a sensation that she is ?going to go back into AFib. Subtle ST depression in leads to AVF and V6. This is her 2nd episode of similar findings in 4 days. Pain resolved with a single nitroglycerin. Initial troponin returns positive at 0.991. Heparin bolus and drip is started. Nitropaste placed and she remains pain free. 430am care is reviewed with Dr. Lemus who recommends transfer to [facility] hospitalist service, will be seen by a Cardiology 1st thing in the morning. [address] Omer, hospitalist. Accepts patient. Awaiting covid test for bed placement. Pt remains hemodynamically stable and CP free with .5 nitro paste and heparin gtt. Pt and her are informed of plans for transfer and findings noted. 600 transport is here. Patient is pain free with half an inch of nitropaste and heparin drip running. Safe for transfer to [facility]. Discharge Plan Departure Patient Disposition: [facility] Clinical Impression: ACS (acute coronary syndrome) Discharge Date/Time: 04/19/20 06:12 Referrals: Noah Ray MD [Primary Care Provider] -
[2020-04-19] MEDS: ASPIRIN 81 MG CHEW TAB 324 MG PO (03:57)
[2020-04-19] MEDS: NITROGLYCERIN 0.4 MG SL TAB SL (03:58)
[2020-04-19 04:02] LABS: Add Manual Diff / Slide Review NO; Basophils Absolute Auto 100 /uL (0-100); Eosinophils Absolute Auto 300 /uL (0-450); Eosinophils Percent Auto 3.9 % (2-4); Hematocrit 40.7 % (36-46); Lymphocytes Absolute Auto 3400 /uL (1100-4500); Lymphocytes Percent Auto 43.1 % (25-40); Mean Corpuscular HGB Conc 34.4 % (30-36); Mean Corpuscular Hemoglobin 30.6 PG (26-34); Mean Corpuscular Volume 89.1 fL (80-100); Monocytes Absolute Auto 700 /uL (0-900); Neutrophils Absolute Auto 3400 /uL (1500-7000); Platelet Count 210 X10^3/uL (150-400); Red Blood Cell Count 4.57 X10^6/uL (4.0-5.2); Red Cell Distribution Width 14.1 % (11.6-14.8); White Blood Cell Count 7.9 X10^3/uL (4.5-11.0)
[2020-04-19 04:03] LABS: INR 0.9 (0.9-1.3); Prothrombin Time 10.5 SECONDS (10.1-12.7)
[2020-04-19 04:06] LABS: PTT Partial Thromboplastin Tim 28 SECONDS (26.4-36.2)
[2020-04-19 04:07] LABS: Alanine Aminotransferase 22 IU/L (<35); Albumin 4.2 g/dL (3.5-5.0); Albumin Globulin Ratio 1.3 (1.0-2.8); Alkaline Phosphatase 113 U/L (38-126); Aspartate Aminotransferase 29 IU/L (14-36); BUN Creatinine Ratio 19.4 (6-22); Bilirubin Total 0.4 mg/dL (0.2-1.3); Blood Urea Nitrogen 28 mg/dL (7-17); Calcium 9.4 mg/dL (8.4-10.2); Carbon Dioxide 29 mmol/L (22-32); Chloride 105 mmol/L (98-107); Creatine Kinase 213 U/L (30-135); Estimated Glomerular Filt Rate 36.3 mL/min (>60); Globulin 3.3 g/dL (1.7-4.1); Glucose 136 mg/dL (80-110); HEMOLYSIS < 15 (0-50); Lipase 156 U/L (23-300); Potassium 3.8 mmol/L (3.4-5.1); Sodium 142 mmol/L (137-145); Total Protein 7.5 g/dL (6.3-8.2)
[2020-04-19 04:21] LABS: Troponin I 0.991 ng/mL (0.01-0.034)
[2020-04-19 04:22] LABS: CKMB % Relative Index 1.6 % (1.5-5.0); Creatine Kinase MB 3.49 ng/mL (<2.37)
[2020-04-19] MEDS: HEPARIN 5,000 UNIT/ML VIAL 7500 UNIT IV (04:26)
[2020-04-19] MEDS: HEPARIN DRIP 25,000 UNIT/500 ML IV.SOLN 26.562 UNIT IV (04:27)
--- NOTE | 2020-04-19 04:28 | PC.NURSE ---
Heparin Drip and bolus double checked by Maki BROWN
[2020-04-19] MEDS: NITROGLYCERIN OINT 1 INCH/GM OINT...G. 0.5 INCH TOP (04:37)
[2020-04-19 05:06] LABS: COVID19 -Nasal RAPID Negative (Negative)
== END 2020-04-19 06:12 | disposition short-term general hospital (02) ==
PROVIDERS: Emergency Provider Emergency Medicine; Family Provider Internal Medicine; PCP Internal Medicine
DX: I24.9 Acute ischemic heart disease, unspecified (principal); I48.91 Unspecified atrial fibrillation; Z79.01 Long term (current) use of anticoagulants
CPT/HCPCS: 36415; 71045; 80053; 82550; 82553; 83690; 84484; 85025; 85610; 85730; 87635; 93005; 96365; 96366; 96375; 99284; J1644

== ENCOUNTER → 2020-04-23 07:27 | Outpatient (CLI) | payer MEDICARE, OTHER, SELFPAY ==
[2020-04-23 10:26] LABS: BUN Creatinine Ratio 12.7 (6-22); Blood Urea Nitrogen 17 mg/dL (7-17); Calcium 8.7 mg/dL (8.4-10.2); Carbon Dioxide 28 mmol/L (22-32); Chloride 107 mmol/L (98-107); Estimated Glomerular Filt Rate 39.5 mL/min (>60); Glucose 147 mg/dL (80-110); HEMOLYSIS < 15 (0-50); Potassium 3.8 mmol/L (3.4-5.1); Sodium 142 mmol/L (137-145)
== END ==
PROVIDERS: Family Provider Internal Medicine; PCP Internal Medicine; Referring Provider Internal Medicine Gastroenterology; Visit Provider Internal Medicine Gastroenterology
DX: N17.9 Acute kidney failure, unspecified (principal)
CPT/HCPCS: 36415; 80048

== ENCOUNTER → 2020-04-25 08:19 | Outpatient (CLI) | payer MEDICARE, OTHER, SELFPAY ==
[2020-04-28 22:50] LABS: Lipoprotein (a) 116.1 nmol/L (<75.0)
== END ==
PROVIDERS: Family Provider Internal Medicine; PCP Internal Medicine; Referring Provider Internal Medicine; Visit Provider Internal Medicine
DX: E78.5 Hyperlipidemia, unspecified (principal)
CPT/HCPCS: 36415; 83695

== ENCOUNTER 2020-05-04 17:30 | Emergency (ER) | payer MEDICARE, OTHER, SELFPAY ==
[2020-05-04] VITALS (18 sets, daily range): BP systolic 100–188; BP diastolic 55–83; PULSE 50–63; RESP 16–40; O2SAT 93–99; BMI 35.2
[2020-05-04 17:48] LABS: Add Manual Diff / Slide Review NO; Basophils Absolute Auto 100 /uL (0-100); Basophils Percent Auto 1.1 % (0-2); Eosinophils Absolute Auto 300 /uL (0-450); Eosinophils Percent Auto 3.5 % (2-4); Hematocrit 41.3 % (36-46); Lymphocytes Absolute Auto 3900 /uL (1100-4500); Lymphocytes Percent Auto 38.6 % (25-40); Mean Corpuscular Hemoglobin 30.6 PG (26-34); Mean Corpuscular Volume 89.9 fL (80-100); Monocytes Absolute Auto 800 /uL (0-900); Monocytes Percent Auto 7.6 % (3-14); Neutrophils Absolute Auto 4900 /uL (1500-7000); Neutrophils Percent Auto 49.2 % (50-75); Platelet Count 244 X10^3/uL (150-400); Red Blood Cell Count 4.59 X10^6/uL (4.0-5.2); Red Cell Distribution Width 14.4 % (11.6-14.8)
[2020-05-04 17:52] LABS: INR 1.4 (0.9-1.3); Prothrombin Time 15.9 SECONDS (10.1-12.7)
[2020-05-04 17:56] LABS: Alanine Aminotransferase 27 IU/L (<35); Albumin 4.7 g/dL (3.5-5.0); Albumin Globulin Ratio 1.3 (1.0-2.8); Alkaline Phosphatase 86 U/L (38-126); Aspartate Aminotransferase 32 IU/L (14-36); BUN Creatinine Ratio 20.6 (6-22); Bilirubin Total 0.6 mg/dL (0.2-1.3); Blood Urea Nitrogen 33 mg/dL (7-17); Calcium 9.2 mg/dL (8.4-10.2); Carbon Dioxide 26 mmol/L (22-32); Chloride 104 mmol/L (98-107); Creatine Kinase 157 U/L (30-135); Estimated Glomerular Filt Rate 32.2 mL/min (>60); Globulin 3.6 g/dL (1.7-4.1); Glucose 88 mg/dL (80-110); HEMOLYSIS 24 (0-50); Lipase 170 U/L (23-300); Potassium 4.2 mmol/L (3.4-5.1); Sodium 139 mmol/L (137-145); Total Protein 8.3 g/dL (6.3-8.2)
[2020-05-04 18:08] LABS: COVID19 -Nasal RAPID Negative (Negative)
[2020-05-04 18:09] LABS: NT-proBNP (BNP-Adult 18+) 485 pg/mL (<125); Troponin I < 0.012 ng/mL (0.01-0.034)
[2020-05-04 18:11] LABS: CKMB % Relative Index 1.3 % (1.5-5.0); Creatine Kinase MB 2.06 ng/mL (<2.37)
--- NOTE | 2020-05-04 18:22 | DI.RAD.S_ITS ---
PROCEDURE: XR CHEST 1V INDICATIONS: Dyspnea. Recent cardiac stent. TECHNIQUE: One view of the chest was acquired. COMPARISON: [facility], CR, CHEST 2 VIEW, 06/07/2017, 7:38. [facility], CR, XR CHEST 2 VIEWS, 08/17/2018, 12:26. [facility], CR, XR CHEST 1V, 04/19/2020, 3:26. FINDINGS: Surgical changes and devices: Post CABG changes are seen. Lower cervical spine fixation hardware is seen. Lungs and pleura: Lungs are clear. No pleural effusions or pneumothorax. Mediastinum: Mediastinal contours appear normal. Heart size is normal. Bones and chest wall: No suspicious bony lesions. Age-appropriate bony degenerative changes are seen. Overlying soft tissues appear unremarkable. IMPRESSION: No acute cardiopulmonary process is seen. Postoperative and degenerative changes are seen. Dictated by: Jesus Merchant M.D. on 05/04/2020 at 17:49 Approved by: Jesus Merchant M.D. on 05/04/2020 at 17:50
--- NOTE | 2020-05-04 19:04 | ED_ITS ---
HPI - SOB/Dyspnea General Chief Complaint: Shortness of Breath/Dyspnea Stated Complaint: Stint On 12th, Feels Like Having A Heart Attack Time Seen by Provider: 05/04/20 17:32 Source: patient and family Mode of arrival: Ambulatory Limitations: no limitations History of Present Illness HPI Narrative: The patient has a history of CABG as well as left carotid artery surgery. She had an MT earlier this month, she had a stent placed at [facility]. The 1st 2 days after hospitalization she had tightness and anterior neck with some dyspnea, feeling like she was having a heart attack in. She discussed the symptoms today with her software intern. She has not had the symptoms for the last several days. She has no headache, sore throat or cough or fever. She is not having chest pain or dyspnea now. She is compliant with medications. She simply feels fatigued. Related Data Allergies Allergy/AdvReac Type Severity Reaction Status Date / Time Penicillins [PENICILLINS] Allergy Unknown Verified 04/19/20 03:27 Sulfa (Sulfonamide Allergy Unknown Verified 04/19/20 03:27 Antibiotics) [SULFA (SULFONAMIDE ANTIBIOTICS)] Review of Systems Constitutional Constitutional: Denies chills, Denies fever(s), Reports lethargy and Reports weakness Eyes Eyes: Denies change in vision ENT Ears, Nose, Mouth, and Throat: Denies sore throat Cardiovascular Cardiovascular: Denies chest pain, Denies syncope, Denies rapid heart rate, Denies pedal edema, Denies dyspnea and Denies dyspnea on exertion Respiratory Respiratory: Denies cough, Denies dyspnea and Denies dyspnea on exertion Gastrointestinal Gastrointestinal: Denies abdominal pain, Denies nausea and Denies vomiting Genitourinary Genitourinary: Denies dysuria Genitourinary: Denies dysuria Musculoskeletal Musculoskeletal: Denies back pain and Denies arthralgias Integumentary/Breasts Skin/Breast: Denies erythema and Denies rash Neurologic Neurologic: Denies confusion, Denies syncope, Denies memory loss and Reports weakness Psychiatric Psychiatric: Denies anxiety, Denies confusion and Denies memory loss Patient History Medical History CAD (coronary artery disease) (Acute) Neuropathy (Acute) Spinal stenosis in cervical region (Acute) Spinal stenosis of lumbar region (Acute) Surgical History H/O cervical spine surgery (Acute) History of lumbar surgery (Acute) Hx of CABG (Acute) Social History Smoking Status: Current every day smoker Smoking Status: Current every day smoker alcohol intake frequency: 0-2 drinks per day Substance Use Type: marijuana Exam Initial Vital Signs Initial Vital Signs: Vital Signs Pulse Rate 59 L 05/04/20 17:30 Respiratory Rate 20 05/04/20 17:30 Blood Pressure 188/83 H 05/04/20 17:30 Pulse Oximetry 96 05/04/20 17:30 Const General: cooperative, well groomed and No acute distress HENMT Head: normocephalic and atraumatic Mouth: oral mucosae normal Eyes Pupils: PERRL EOM: EOM intact bilaterally Neck Neck: No JVD Chest Chest: normal palpation of entire chest wall Resp Effort & Inspection: normal respiratory effort and able to speak in complete sentences Auscultation: clear to auscultation bilaterally, no rales, no rhonchi and no wheezes Cardio Rate: regular rate Rhythm: regular rhythm Heart Sounds: S1 normal, S2 normal, no click, no gallops, no murmurs and no rubs Pulses: normal peripheral pulses GI Inspection: non-distended Palpation: soft, no hepatosplenomegaly, No guarding and No tender Auscultation: normal bowel sounds Back/Spine/Pelvis Back: No CVA tenderness Skin General: no rashes or lesions noted Neuro General: patient alert, patient oriented x3, gait normal and no focal motor deficits Speech: speech normal Extrem General: full ROM, no pedal edema and no calf tenderness Psych Mental Status: mental status grossly normal Speech and Movement: speech and movement normal Course Course Course Narrative: The patient's initial blood pressure was elevated, but normalized. She has been asymptomatic since prior to arrival. Evaluation includes reassuring labs, a normal EKG, and a normal chest x-ray. She is referred back to her PCM and her software intern for ongoing care. Orders Ordered: ED Orders 05/04/20 18:22 XR chest 1V Stat Vital Signs Vital signs: Vital Signs - 8 hr 05/04/20 19:30 05/04/20 19:45 05/04/20 19:55 Pulse Rate 50 L 51 L 55 L Respiratory Rate 16 23 18 Blood Pressure 108/55 L 108/59 L Pulse Oximetry 98 98 99 MDM - SOB/Dyspnea Lab Data Attestation: I reviewed the patient's lab results. Result diagrams: 05/04/20 17:39 05/04/20 17:39 Labs: Lab Results 05/04/20 05/04/20 05/04/20 Range/Units 17:39 17:39 17:39 WBC 10.0 (4.5-11.0) X10^3/uL RBC 4.59 (4.0-5.2) X10^6/uL Hgb 14.0 (12.0-16.0) g/dL Hct 41.3 (36-46) % MCV 89.9 (80-100) fL MCH 30.6 (26-34) PG MCHC 34.0 (30-36) % RDW 14.4 (11.6-14.8) % Plt Count 244 (150-400) X10^3/uL Neut % (Auto) 49.2 L (50-75) % Lymph % (Auto) 38.6 (25-40) % [place] % (Auto) 7.6 (3-14) % Eos % (Auto) 3.5 (2-4) % Baso % (Auto) 1.1 (0-2) % Neut # (Auto) 4900 (8661-0314) /uL Lymph # (Auto) 3900 (0094-5520) /uL Rains # (Auto) 800 (0-900) /uL Eos # (Auto) 300 (0-450) /uL Baso # (Auto) 100 (0-100) /uL PT 15.9 H (10.1-12.7) SECONDS INR 1.4 H (0.9-1.3) Sodium 139 (137-145) mmol/L Potassium 4.2 (3.4-5.1) mmol/L Chloride 104 (98-107) mmol/L Carbon Dioxide 26 (22-32) mmol/L BUN 33 H (7-17) mg/dL Creatinine 1.60 H (0.52-1.04) mg/dL Estimated GFR 32.2 L (>60) mL/min BUN/Creatinine Ratio 20.6 (6-22) Glucose 88 (80-110) mg/dL Calcium 9.2 (8.4-10.2) mg/dL Total Bilirubin 0.6 (0.2-1.3) mg/dL AST 32 (14-36) IU/L ALT 27 (<35) IU/L Alkaline Phosphatase 86 (38-126) U/L Total Creatine Kinase 157 H (30-135) U/L CK-MB (CK-2) 2.06 (<2.37) ng/mL CK-MB (CK-2) Rel Index 1.3 L (1.5-5.0) % Troponin I < 0.012 (0.01-0.034) ng/mL NT-Pro-B Natriuret Pep 485 H (<125) pg/mL Total Protein 8.3 H (6.3-8.2) g/dL Albumin 4.7 (3.5-5.0) g/dL Globulin 3.6 (1.7-4.1) g/dL Albumin/Globulin Ratio 1.3 (1.0-2.8) Lipase 170 (23-300) U/L COVID-19 PCR (Negative) 05/04/20 Range/Units 17:39 WBC (4.5-11.0) X10^3/uL RBC (4.0-5.2) X10^6/uL Hgb (12.0-16.0) g/dL Hct (36-46) % MCV (80-100) fL MCH (26-34) PG MCHC (30-36) % RDW (11.6-14.8) % Plt Count (150-400) X10^3/uL Neut % (Auto) (50-75) % Lymph % (Auto) (25-40) % Rains % (Auto) (3-14) % Eos % (Auto) (2-4) % Baso % (Auto) (0-2) % Neut # (Auto) (8890-4551) /uL Lymph # (Auto) (5619-2055) /uL Rains # (Auto) (0-900) /uL Eos # (Auto) (0-450) /uL Baso # (Auto) (0-100) /uL PT (10.1-12.7) SECONDS INR (0.9-1.3) Sodium (137-145) mmol/L Potassium (3.4-5.1) mmol/L Chloride (98-107) mmol/L Carbon Dioxide (22-32) mmol/L BUN (7-17) mg/dL Creatinine (0.52-1.04) mg/dL Estimated GFR (>60) mL/min BUN/Creatinine Ratio (6-22) Glucose (80-110) mg/dL Calcium (8.4-10.2) mg/dL Total Bilirubin (0.2-1.3) mg/dL AST (14-36) IU/L ALT (<35) IU/L Alkaline Phosphatase (38-126) U/L Total Creatine Kinase (30-135) U/L CK-MB (CK-2) (<2.37) ng/mL CK-MB (CK-2) Rel Index (1.5-5.0) % Troponin I (0.01-0.034) ng/mL NT-Pro-B Natriuret Pep (<125) pg/mL Total Protein (6.3-8.2) g/dL Albumin (3.5-5.0) g/dL Globulin (1.7-4.1) g/dL Albumin/Globulin Ratio (1.0-2.8) Lipase (23-300) U/L COVID-19 PCR Negative (Negative) Imaging Data Chest x-ray: Radiologist's Impression: [address] [address] XRay Report Signed Patient: Luz Mireles R#: [id number] : 3Acct:[id number] Age/Sex: 65 / FDate of Service: 05/04/20 Loc: ED Accession Number: [id number] Procedure: XR chest 1V Ordering Provider: John Park MD PROCEDURE: XR CHEST 1V INDICATIONS: Dyspnea. Recent cardiac stent. TECHNIQUE: One view of the chest was acquired. COMPARISON: [facility], CR, CHEST 2 VIEW, 06/07/2017, 7:38. [facility], CR, XR CHEST 2 VIEWS, 08/17/2018, 12:26. [facility], CR, XR CHEST 1V, 04/19/2020, 3:26. FINDINGS: Surgical changes and devices: Post CABG changes are seen. Lower cervical spine fixation hardware is seen. Lungs and pleura: Lungs are clear. No pleural effusions or pneumothorax. Mediastinum: Mediastinal contours appear normal. Heart size is normal. Bones and chest wall: No suspicious bony lesions. Age-appropriate bony degenerative changes are seen. Overlying soft tissues appear unremarkable. IMPRESSION: No acute cardiopulmonary process is seen. Postoperative and degenerative changes are seen. Dictated by: Jesus Merchant M.D. on 05/04/2020 at 17:49 Approved by: Jesus Merchant M.D. on 05/04/2020 at 17:50 ECG Data Attestation: I personally reviewed and interpreted this ECG as follows: (Sinus bradycardia rate 55 beats per minute. Normal intervals. No ectopy. No acute ST T wave changes.) Discharge Plan Departure Patient Disposition: Home Clinical Impression: Fatigue Qualifiers: Fatigue type: unspecified Qualified Code(s): R53.83 - Other fatigue Coronary artery disease Qualifiers: Coronary Disease-Associated Artery/Lesion type: unspecified vessel or lesion type [place] vs. transplanted heart: eagle heart Associated angina: without angina Qualified Code(s): I25.10 - Atherosclerotic heart disease of eagle coronary artery without angina pectoris Discharge Date/Time: 05/04/20 19:57 Instructions: DI for Fatigue Activity Restrictions/Additional Instructions: Your evaluation looks good. Labs are good. EKG is good. Chest x-ray is normal. Continue your current medications. I am assuming you have planned cardiac rehab coming forth. Follow-up as scheduled. Return the ER if you develop chest pain, dizziness, weakness or dizziness. Referrals: Noah Ray MD [Primary Care Provider] -
== END 2020-05-04 19:57 | disposition home or self-care (01) ==
PROVIDERS: Emergency Medicine; Emergency Provider Emergency Medicine; Family Provider Internal Medicine; PCP Internal Medicine
DX: I25.10 Atherosclerotic heart disease of native coronary artery without angina pectoris (principal); R00.1 Bradycardia, unspecified; R53.1 Weakness; R53.83 Other fatigue; R06.00 Dyspnea, unspecified; Z95.5 Presence of coronary angioplasty implant and graft
CPT/HCPCS: 36415; 71045; 80053; 82550; 82553; 83690; 83880; 84484; 85025; 85610; 87635; 93005; 93010; 99283; 99284

== ENCOUNTER → 2020-06-01 13:21 | Outpatient (CLI) | payer MEDICARE, OTHER, SELFPAY ==
[2020-06-01 14:02] LABS: COVID19 -Nasal RAPID Negative (Negative)
== END ==
PROVIDERS: Family Provider Internal Medicine; PCP Internal Medicine; Visit Provider Physician Assistant
DX: Z11.59 Encounter for screening for other viral diseases (principal)
CPT/HCPCS: 87635

== ENCOUNTER → 2020-07-13 09:53 | Outpatient (CLI) | payer MEDICARE, OTHER, SELFPAY ==
[2020-07-13 10:48] LABS: Add Manual Diff / Slide Review NO; Basophils Absolute Auto 100 /uL (0-100); Basophils Percent Auto 1.2 % (0-2); Eosinophils Absolute Auto 200 /uL (0-450); Eosinophils Percent Auto 2.5 % (2-4); Hematocrit 36.9 % (36-46); Hemoglobin 12.6 g/dL (12.0-16.0); Lymphocytes Absolute Auto 2600 /uL (1100-4500); Lymphocytes Percent Auto 28.7 % (25-40); Mean Corpuscular HGB Conc 34.1 % (30-36); Mean Corpuscular Hemoglobin 30.3 PG (26-34); Mean Corpuscular Volume 88.8 fL (80-100); Monocytes Absolute Auto 600 /uL (0-900); Monocytes Percent Auto 6.7 % (3-14); Neutrophils Absolute Auto 5500 /uL (1500-7000); Neutrophils Percent Auto 60.9 % (50-75); Platelet Count 240 X10^3/uL (150-400); Red Blood Cell Count 4.15 X10^6/uL (4.0-5.2); Red Cell Distribution Width 14.3 % (11.6-14.8)
[2020-07-13 11:00] LABS: Hemoglobin A1C% w Est Avg Glu 6.7 % (4.0-6.0)
[2020-07-13 11:58] LABS: Alanine Aminotransferase 39 IU/L (<35); Albumin 4.1 g/dL (3.5-5.0); Albumin Globulin Ratio 1.2 (1.0-2.8); Alkaline Phosphatase 84 U/L (38-126); Aspartate Aminotransferase 37 IU/L (14-36); BUN Creatinine Ratio 14.4 (6-22); Bilirubin Total 0.4 mg/dL (0.2-1.3); Blood Urea Nitrogen 33 mg/dL (7-17); Calcium 9.1 mg/dL (8.4-10.2); Carbon Dioxide 26 mmol/L (22-32); Chloride 105 mmol/L (98-107); Estimated Glomerular Filt Rate 21.3 mL/min (>60); Globulin 3.3 g/dL (1.7-4.1); Glucose 114 mg/dL (80-110); HEMOLYSIS < 15 (0-50); Potassium 4.5 mmol/L (3.4-5.1); Sodium 138 mmol/L (137-145); Total Protein 7.4 g/dL (6.3-8.2)
== END ==
PROVIDERS: Family Provider Internal Medicine; PCP Internal Medicine; Referring Provider Internal Medicine; Visit Provider Internal Medicine
DX: I10 Essential (primary) hypertension (principal); E11.9 Type 2 diabetes mellitus without complications; I25.10 Atherosclerotic heart disease of native coronary artery without angina pectoris
CPT/HCPCS: 36415; 80053; 83036; 85025

== ENCOUNTER → 2020-07-15 10:12 | Outpatient (CLI) | payer MEDICARE, OTHER, SELFPAY ==
[2020-07-15 11:25] LABS: Appearance Urine UA SL CLOUDY; Bilirubin Urine UA NEGATIVE (NEGATIVE); Color Urine UA YELLOW; Glucose Urine UA NEGATIVE (Negative); Ketones Urine UA NEGATIVE (NEGATIVE); Leukocyte Esterase Urine UA NEGATIVE (NEGATIVE); Nitrite Urine UA NEGATIVE (Negative); Occult Blood Urine UA 3+ (Negative); Protein Urine UA 1+ (Negative); Urobilinogen Urine UA 0.2 E.U./dL (0.2)
[2020-07-15 11:50] LABS: pH Urine UA 5.5 (4.5-8.0)
[2020-07-15 12:00] LABS: Amorphous Sediment Urine 3+; RBC Urine 0-1/HPF (0-5/HPF); Squamous Epithelial Cell Urine 0-1 /HPF (0-5/HPF); WBC Urine 0-1/HPF (0-5/HPF)
[2020-07-15 12:01] LABS: Bacteria Urine Occasional (0-1); Culture Indicated Urine Cult Not Indicated; Granular Casts Urine 30-100/LPF
[2020-07-15 13:02] LABS: BUN Creatinine Ratio 13.3 (6-22); Blood Urea Nitrogen 30 mg/dL (7-17); Calcium 9.3 mg/dL (8.4-10.2); Carbon Dioxide 29 mmol/L (22-32); Chloride 104 mmol/L (98-107); Estimated Glomerular Filt Rate 21.6 mL/min (>60); Glucose 108 mg/dL (80-110); HEMOLYSIS < 15 (0-50); Potassium 4.7 mmol/L (3.4-5.1); Sodium 141 mmol/L (137-145)
[2020-07-15 15:28] LABS: Creatinine Urine Random 79.6 mg/dL; Sodium Urine Random 71 mmol/L (30-90)
[2020-07-16 16:39] LABS: Osmolality Urine 386 mOsmol/kg (.)
[2020-07-17 09:11] LABS: Albumin 3.5 g/dL (2.9-4.4); Alpha-1-Globulin 0.3 g/dL (0.0-0.4); Alpha-2-Globulin 0.9 g/dL (0.4-1.0); Gamma Globulin 1.3 g/dL (0.4-1.8); Globulin Total 3.6 g/dL (2.2-3.9); Protein, Total 7.1 g/dL (6.0-8.5)
[2020-07-20 12:42] LABS: Alpha-1 Globulin, Ur 3.2 % (.); Beta Globulin, Ur 17.5 % (.); Gamma Globulin, Ur 19.2 % (.); M-Spike % Not Observed % (Not Observed); Urine Total Protein 103.3 mg/dL (Not Estab.)
== END ==
PROVIDERS: Family Provider Internal Medicine; PCP Internal Medicine; Referring Provider Internal Medicine; Visit Provider Internal Medicine
DX: N17.9 Acute kidney failure, unspecified (principal)
CPT/HCPCS: 36415; 80048; 81001; 82570; 83935; 84155; 84156; 84165; 84166; 84300; 85999

== ENCOUNTER → 2020-07-16 11:52 | Outpatient (CLI) | payer MEDICARE, OTHER, SELFPAY ==
--- NOTE | 2020-07-16 11:55 | DI.US.S_ITS ---
PROCEDURE: US RENAL COMPLETE INDICATIONS: Acute kidney failure, unspecified TECHNIQUE: Real-time scanning was performed of the kidneys and bladder, with image documentation. COMPARISON: None. FINDINGS: Kidneys: Kidneys are normal in size. Right kidney measures 11.7 cm long; left kidney measures 11.5 cm long. Right renal cortical thickness is 1.4 cm; left renal cortical thickness is 1.8 cm. Renal cortical echotexture is normal. No hydronephrosis or nephrolithiasis. No suspicious solid mass lesions. Bladder: Pre-void bladder volume is 169 mL. Post-void residual is 3 mL. Pre-void images demonstrate no intraluminal masses or stones. On pre-void images, both of the ureteral jets are noted with color Doppler interrogation. (Of note, ureteral jets may not be detectable in up to 25% of cases due to insufficient differences in specific gravity between ureteral and bladder urine). Miscellaneous: No free pelvic fluid. IMPRESSION: No hydronephrosis Dictated by: José Pham M.D. on 07/16/2020 at 13:59 Approved by: José Pham M.D. on 07/16/2020 at 14:00
== END ==
PROVIDERS: Family Provider Internal Medicine; PCP Internal Medicine; Referring Provider Internal Medicine; Visit Provider Internal Medicine
DX: N17.9 Acute kidney failure, unspecified (principal)
CPT/HCPCS: 76770

== ENCOUNTER 2020-07-22 08:59 | Emergency (ER) | payer MEDICARE, OTHER, SELFPAY ==
[2020-07-22] VITALS (20 sets, daily range): BP systolic 129–186; BP diastolic 60–82; PULSE 53–69; RESP 12–36; TEMP 36.9; O2SAT 94–97; BMI 34.2
--- NOTE | 2020-07-22 09:13 | DI.RAD.S_ITS ---
PROCEDURE: XR CHEST 1V INDICATIONS: chest pain TECHNIQUE: One view of the chest was acquired. COMPARISON: [facility], CR, XR CHEST 1V, 05/04/2020, 18:35. [facility], CR, XR CHEST 1V, 04/19/2020, 3:26. FINDINGS: Surgical changes and devices: Sternotomy wires, possible prior CABG. Anterior fusion plate low cervical spine, previously present. Lungs and pleura: Lungs are mildly abnormal with a chronic mild interstitial prominence perhaps reflecting a prior smoking history.. No pleural effusions or pneumothorax. Mediastinum: Mediastinal contours appear normal. Heart size is normal. Bones and chest wall: No suspicious bony lesions. Overlying soft tissues appear unremarkable. IMPRESSION: No acute disease, no definite source of chest pain is found. Postsurgical changes as noted, chronic mild interstitial prominence. Dictated by: En Sun M.D. on 07/22/2020 at 9:36 Approved by: En Sun M.D. on 07/22/2020 at 9:38
[2020-07-22] MEDS: ASPIRIN 81 MG CHEW TAB 324 MG PO (09:19)
--- NOTE | 2020-07-22 09:20 | ED_ITS ---
HPI - Chest Pain General Chief Complaint: Chest Pain Stated Complaint: worsening chest pain x3 days Time Seen by Provider: 07/22/20 09:02 Source: patient Mode of arrival: Wheelchair Limitations: no limitations History of Present Illness HPI narrative: Patient is a 65-year-old female with known coronary artery diseas e with previous bypass and recent stent in April 2020 presenting today from cardiac rehab. She says the last 3 days she has had increasing shortness of breath with exertion along with chest pain that radiates up to her neck. It stops with rest. She has taken nitroglycerin 1 or 2 times and she says it helps. Today while at cardiac rehab she said it was quite severe a need to stop he took 1 nitro prior to arrival. He said recently due to kidney issues her primary has taken her off of her blood pressure medications including metoprolol hydrochlorothiazide and losartan. By Dr. Valentine cardiology MD complaint: chest pain Onset (ago): day(s) (3) Duration: intermittent Onset: during exertion Pain location: substernal Quality: tightness Pain radiation: none Relieving factors: nitroglycerin and rest Exacerbating factors: exertion Associated symptoms: dyspnea Related Data Allergies Allergy/AdvReac Type Severity Reaction Status Date / Time Penicillins [PENICILLINS] Allergy Unknown Verified 07/22/20 09:07 Sulfa (Sulfonamide Allergy Unknown Verified 07/22/20 09:07 Antibiotics) [SULFA (SULFONAMIDE ANTIBIOTICS)] Review of Systems Review of Systems ROS Unobtainable: All systems reviewed & are unremarkable except as noted in HPI and below Constitutional Constitutional: Denies chills, Denies fever(s), Denies lethargy and Denies weakn ess Eyes Eyes: Denies change in vision, Denies eye discharge, Denies irritation and Denies loss of vision Cardiovascular Cardiovascular: Reports as per HPI and Reports dyspnea on exertion Respiratory Respiratory: Reports as per HPI and Reports dyspnea on exertion Gastrointestinal Gastrointestinal: Denies abdominal pain, Denies change in bowel habits, Denies diarrhea, Denies nausea and Denies vomiting Musculoskeletal Musculoskeletal: Denies back pain and Denies myalgias Integumentary/Breasts Skin/Breast: Denies pruritus, Denies erythema, Denies rash and Denies wounds Neurologic Neurologic: Denies loss of vision and Denies weakness Patient History Medical History (Updated 07/22/20 @ 12:31 by Lexi Smith DO) CAD (coronary artery disease) Neuropathy Spinal stenosis in cervical region Spinal stenosis of lumbar region Surgical History H/O cervical spine surgery History of lumbar surgery Hx of CABG Social History Smoking Status: Current every day smoker Smoking Status: Current every day smoker alcohol intake frequency: 0-2 drinks per day Substance Use Type: marijuana Exam Initial Vital Signs Initial Vital Signs: Vital Signs Temperature 98.5 F 07/22/20 09:07 Pulse Rate 69 07/22/20 09:07 Respiratory Rate 18 07/22/20 09:07 Blood Pressure 186/82 H 07/22/20 09:07 Pulse Oximetry 95 07/22/20 09:07 GENERAL: Well-appearing, well-nourished and in no acute distress. HEENT: Head atraumatic,EOMI, pupils reactive, face symmetric, moist mucous membranes CARDIOVASCULAR: Regular rate and rhythm without murmurs, rubs or gallops. RESPIRATORY: Breath sounds equal bilaterally, no wheezes rales or rhonchi. ABDOMEN: Soft, nontender. Normoactive bowel sounds all 4 quadrants. No guarding or rebound. EXTREMITIES: Normal range of motion, no clubbing or edema. Neurovascularly intact NEUROLOGICAL: Alert and oriented x4.Normal gait and speech. SKIN: Warm, dry, no laceration, no petechiae, no rashes or lesions. Course Orders Ordered: ED Orders 07/22/20 09:13 XR chest 1V Stat EKG-12 Lead Stat 07/22/20 09:15 Complete Blood Count AUTO DIFF Stat Comprehensive Metabolic Panel Stat Lipase Stat NT-proBNP (BNP-Adult 18+) Stat Partial Thromboplastin Time Stat Prothrombin Time INR Stat Troponin & CK Cardiac Panel Stat 07/22/20 11:10 Troponin I Stat 07/22/20 12:00 COVID19 Stat Discontinued Medications Aspirin (Aspirin 81 Mg Chew Tab) 324 mg PO NOW ONE Stop: 07/22/20 09:14 Last Admin: 07/22/20 09:19 Dose: 324 mg Documented by: KATE Furosemide (Furosemide 40 Mg/4 Ml Vial) 40 mg IV NOW ONE Stop: 07/22/20 10:10 Last Admin: 07/22/20 10:28 Dose: 40 mg Documented by: KATE Heparin Sodium (Porcine) (Heparin 5,000 Unit/Ml Vial) 5,000 unit IV NOW ONE Stop: 07/22/20 12:13 Last Admin: 07/22/20 12:22 Dose: 5,000 unit Documented by: KATE Heparin Sodium/Dextrose (Heparin Drip) 25,000 unit in 500 mls @ 20 mls/hr IV CONT LIDIA; Protocol Last Admin: 07/22/20 12:22 Dose: 1,000 units/hr, 20 mls/hr Documented by: KATE Vital Signs Vital signs: Vital Signs - 8 hr 07/22/20 09:07 07/22/20 09:30 07/22/20 09:31 Temperature 98.5 F Pulse Rate 67 61 60 Respiratory Rate 21 17 15 Blood Pressure 186/82 H 157/68 H Pulse Oximetry 96 96 96 07/22/20 10:00 07/22/20 10:01 07/22/20 10:30 Temperature Pulse Rate 58 L 60 56 L Respiratory Rate 19 17 36 H Blood Pressure 146/67 H 161/73 H Pulse Oximetry 97 97 97 07/22/20 11:00 07/22/20 11:01 07/22/20 11:30 Temperature Pulse Rate 55 L 56 L 56 L Respiratory Rate 22 19 16 Blood Pressure 149/66 H 156/70 H Pulse Oximetry 96 96 95 07/22/20 12:00 07/22/20 12:01 07/22/20 12:30 Temperature Pulse Rate 53 L 55 L 60 Respiratory Rate 27 H 15 21 Blood Pressure 153/67 H Pulse Oximetry 96 95 96 07/22/20 12:31 07/22/20 13:00 07/22/20 13:01 Temperature Pulse Rate 61 54 L 53 L Respiratory Rate 24 16 20 Blood Pressure 132/60 129/60 Pulse Oximetry 96 94 95 07/22/20 13:30 07/22/20 14:00 07/22/20 14:19 Temperature Pulse Rate 57 L 60 57 L Respiratory Rate 28 H Blood Pressure 135/70 Pulse Oximetry 97 97 96 07/22/20 14:30 07/22/20 14:31 Temperature Pulse Rate 54 L 54 L Respiratory Rate 12 16 Blood Pressure 150/76 H Pulse Oximetry 95 95 MDM - Chest Pain Lab Data Attestation: I reviewed the patient's lab results. Result diagrams: 07/22/20 09:15 07/22/20 09:15 Labs: Lab Results 07/22/20 07/22/20 07/22/20 Range/Units 09:15 09:15 09:15 WBC 7.5 (4.5-11.0) X10^3/uL RBC 4.01 (4.0-5.2) X10^6/uL Hgb 12.3 (12.0-16.0) g/dL Hct 36.1 (36-46) % MCV 89.8 (80-100) fL MCH 30.5 (26-34) PG MCHC 34.0 (30-36) % RDW 14.2 (11.6-14.8) % Plt Count 188 (150-400) X10^3/uL Neut % (Auto) 65.2 (50-75) % Lymph % (Auto) 23.3 L (25-40) % Yates % (Auto) 7.1 (3-14) % Eos % (Auto) 3.5 (2-4) % Baso % (Auto) 0.9 (0-2) % Neut # (Auto) 4900 (0704-6094) /uL Lymph # (Auto) 1800 (3242-5972) /uL Yates # (Auto) 500 (0-900) /uL Eos # (Auto) 300 (0-450) /uL Baso # (Auto) 100 (0-100) /uL PT 13.7 H (10.1-12.7) SECONDS INR 1.2 (0.9-1.3) APTT 34 D (26.4-36.2) SECONDS Sodium 141 (137-145) mmol/L Potassium 4.2 (3.4-5.1) mmol/L Chloride 112 H (98-107) mmol/L Carbon Dioxide 25 (22-32) mmol/L BUN 17 (7-17) mg/dL Creatinine 1.31 H (0.52-1.04) mg/dL Estimated GFR 40.5 L (>60) mL/min BUN/Creatinine Ratio 13.0 (6-22) Glucose 128 H (80-110) mg/dL Calcium 9.1 (8.4-10.2) mg/dL Total Bilirubin 0.3 (0.2-1.3) mg/dL AST 52 H (14-36) IU/L ALT 53 H (<35) IU/L Alkaline Phosphatase 91 (38-126) U/L Total Creatine Kinase 166 H (30-135) U/L CK-MB (CK-2) 2.22 (<2.37) ng/mL CK-MB (CK-2) Rel Index 1.3 L (1.5-5.0) % Troponin I 0.031 (0.01-0.034) ng/mL NT-Pro-B Natriuret Pep 1440 H (<125) pg/mL Total Protein 7.3 (6.3-8.2) g/dL Albumin 4.1 (3.5-5.0) g/dL Globulin 3.2 (1.7-4.1) g/dL Albumin/Globulin Ratio 1.3 (1.0-2.8) Lipase 158 (23-300) U/L SARS-CoV-2 (PCR) (Negative) 07/22/20 07/22/20 Range/Units 11:10 12:00 WBC (4.5-11.0) X10^3/uL RBC (4.0-5.2) X10^6/uL Hgb (12.0-16.0) g/dL Hct (36-46) % MCV (80-100) fL MCH (26-34) PG MCHC (30-36) % RDW (11.6-14.8) % Plt Count (150-400) X10^3/uL Neut % (Auto) (50-75) % Lymph % (Auto) (25-40) % Yates % (Auto) (3-14) % Eos % (Auto) (2-4) % Baso % (Auto) (0-2) % Neut # (Auto) (6509-6256) /uL Lymph # (Auto) (4602-3885) /uL Yates # (Auto) (0-900) /uL Eos # (Auto) (0-450) /uL Baso # (Auto) (0-100) /uL PT (10.1-12.7) SECONDS INR (0.9-1.3) APTT (26.4-36.2) SECONDS Sodium (137-145) mmol/L Potassium (3.4-5.1) mmol/L Chloride (98-107) mmol/L Carbon Dioxide (22-32) mmol/L BUN (7-17) mg/dL Creatinine (0.52-1.04) mg/dL Estimated GFR (>60) mL/min BUN/Creatinine Ratio (6-22) Glucose (80-110) mg/dL Calcium (8.4-10.2) mg/dL Total Bilirubin (0.2-1.3) mg/dL AST (14-36) IU/L ALT (<35) IU/L Alkaline Phosphatase (38-126) U/L Total Creatine Kinase (30-135) U/L CK-MB (CK-2) (<2.37) ng/mL CK-MB (CK-2) Rel Index (1.5-5.0) % Troponin I 0.114 H (0.01-0.034) ng/mL NT-Pro-B Natriuret Pep (<125) pg/mL Total Protein (6.3-8.2) g/dL Albumin (3.5-5.0) g/dL Globulin (1.7-4.1) g/dL Albumin/Globulin Ratio (1.0-2.8) Lipase (23-300) U/L SARS-CoV-2 (PCR) Negative (Negative) Imaging Data Chest x-ray: Radiologist's Impression: PROCEDURE: XR CHEST 1V INDICATIONS: chest pain TECHNIQUE: One view of the chest was acquired. COMPARISON: [facility], , XR CHEST 1V, 05/04/2020, 18:35. [facility], , XR CHEST 1V, 04/19/2020, 3:26. FINDINGS: Surgical changes and devices: Sternotomy wires, possible prior CABG. Anterior fusion plate low cervical spine, previously present. Lungs and pleura: Lungs are mildly abnormal with a chronic mild interstitial prominence perhaps reflecting a prior smoking history.. No pleural effusions or pneumothorax. Mediastinum: Mediastinal contours appear normal. Heart size is normal. Bones and chest wall: No suspicious bony lesions. Overlying soft tissues appear unremarkable. IMPRESSION: No acute disease, no definite source of chest pain is found. Postsurgical changes as noted, chronic mild interstitial prominence. Dictated by: En Sun M.D. on 07/22/2020 at 9:36 Approved by: En Sun M.D. on 07/22/2020 at 9:38 ECG Data Attestation: I personally reviewed and interpreted this ECG as follows: Prior ECG tracings: available for review Interpretation: Normal sinus rhythm rate 62 p.r. interval [address] changes local to similar to previous EKG Q-waves noted in lead 3 similar to prior EKG EKG 2. Sinus rhythm low voltage rate 58 artifact noted no obvious ST elevations unchanged from previous MDM Narrative Medical decision making narrative: Pain-free in the ED. She says only happens with exertion, suggestive of stable angina however she states this is what happens when she has had heart attack. BNP is noted to be elevated at 1400 she is given 1 dose Lasix. Initial troponin 0.031 2 hour repeat is significantly more elevated at 0.114. No EKG changes. Concern for acute coronary syndrome. 12:10 p.m. discussed case with cardiology Dr. Valentine who is quite familiar with patient she agrees with transfer heparin drip she will likely need a cardiac catheterization [id number] Hospitalist at [facility] accepts for transfer. Critical Care Time Critical Care Time Critical Care Time: Yes Total Critical Care Time: 30 Attestation: The high probability of a clinically significant, sudden or life threatening deterioration of the [cardiovascular] system(s) required my full and direct attention, intervention and personal management. The aggregate critical care time was 30 minutes. This time is in addition to time spent performing reported procedures but includes the following: [x] Data Review and interpretation [x] Patient assessment and monitoring of vital signs [x] Documentation [x] Medication orders and management Discharge Plan Departure Patient Disposition: [facility] Clinical Impression: ACS (acute coronary syndrome) Referrals: Noah Ray MD [Primary Care Provider] -
[2020-07-22 09:23] LABS: Add Manual Diff / Slide Review NO; Basophils Absolute Auto 100 /uL (0-100); Basophils Percent Auto 0.9 % (0-2); Eosinophils Absolute Auto 300 /uL (0-450); Eosinophils Percent Auto 3.5 % (2-4); Hematocrit 36.1 % (36-46); Hemoglobin 12.3 g/dL (12.0-16.0); Lymphocytes Absolute Auto 1800 /uL (1100-4500); Lymphocytes Percent Auto 23.3 % (25-40); Mean Corpuscular Hemoglobin 30.5 PG (26-34); Mean Corpuscular Volume 89.8 fL (80-100); Monocytes Absolute Auto 500 /uL (0-900); Monocytes Percent Auto 7.1 % (3-14); Neutrophils Absolute Auto 4900 /uL (1500-7000); Neutrophils Percent Auto 65.2 % (50-75); Platelet Count 188 X10^3/uL (150-400); Red Blood Cell Count 4.01 X10^6/uL (4.0-5.2); Red Cell Distribution Width 14.2 % (11.6-14.8); White Blood Cell Count 7.5 X10^3/uL (4.5-11.0)
[2020-07-22 09:32] LABS: INR 1.2 (0.9-1.3); Prothrombin Time 13.7 SECONDS (10.1-12.7)
[2020-07-22 09:35] LABS: PTT Partial Thromboplastin Tim 34 SECONDS (26.4-36.2)
[2020-07-22 09:36] LABS: Alanine Aminotransferase 53 IU/L (<35); Albumin 4.1 g/dL (3.5-5.0); Albumin Globulin Ratio 1.3 (1.0-2.8); Alkaline Phosphatase 91 U/L (38-126); Aspartate Aminotransferase 52 IU/L (14-36); Bilirubin Total 0.3 mg/dL (0.2-1.3); Blood Urea Nitrogen 17 mg/dL (7-17); Calcium 9.1 mg/dL (8.4-10.2); Carbon Dioxide 25 mmol/L (22-32); Chloride 112 mmol/L (98-107); Creatine Kinase 166 U/L (30-135); Estimated Glomerular Filt Rate 40.5 mL/min (>60); Globulin 3.2 g/dL (1.7-4.1); Glucose 128 mg/dL (80-110); HEMOLYSIS < 15 (0-50); Lipase 158 U/L (23-300); Potassium 4.2 mmol/L (3.4-5.1); Sodium 141 mmol/L (137-145); Total Protein 7.3 g/dL (6.3-8.2)
[2020-07-22 09:49] LABS: NT-proBNP (BNP-Adult 18+) 1440 pg/mL (<125); Troponin I 0.031 ng/mL (0.01-0.034)
[2020-07-22 09:52] LABS: CKMB % Relative Index 1.3 % (1.5-5.0); Creatine Kinase MB 2.22 ng/mL (<2.37)
[2020-07-22] MEDS: FUROSEMIDE 40 MG/4 ML VIAL IV (10:28)
[2020-07-22 11:42] LABS: Troponin I 0.114 ng/mL (0.01-0.034)
[2020-07-22] MEDS: HEPARIN 5,000 UNIT/ML VIAL 5000 UNIT IV (12:22)
[2020-07-22] MEDS: HEPARIN DRIP 25,000 UNIT/500 ML IV.SOLN 20 UNIT IV (12:22)
[2020-07-22 12:29] LABS: COVID19 -Nasal RAPID Negative (Negative)
--- NOTE | 2020-07-22 14:26 | PC.NURSE ---
Report given to STEPHANIE Flores at [facility]
--- NOTE | 2020-07-22 14:40 | PC.NURSE ---
pt transferred to [facility] with heparin IV drip infusing at 20 ML/HR
== END 2020-07-22 14:53 | disposition short-term general hospital (02) ==
PROVIDERS: Emergency Provider Emergency Medicine; Family Provider Internal Medicine; PCP Internal Medicine
DX: I24.9 Acute ischemic heart disease, unspecified (principal); R06.02 Shortness of breath; I25.10 Atherosclerotic heart disease of native coronary artery without angina pectoris; Z20.822 Contact with and (suspected) exposure to COVID-19
CPT/HCPCS: 36415; 71045; 80053; 82550; 82553; 83690; 83880; 84484; 85025; 85610; 85730; 87635; 93005; 93010; 96365; 96366; 96375; 99283; 99291; C9803; J1644; J1940

== ENCOUNTER → 2020-09-01 08:55 | Outpatient (CLI) | payer MEDICARE, OTHER, SELFPAY ==
[2020-09-01 09:53] LABS: BUN Creatinine Ratio 14.4 (6-22); Blood Urea Nitrogen 14 mg/dL (7-17); Calcium 9.2 mg/dL (8.4-10.2); Carbon Dioxide 28 mmol/L (22-32); Chloride 106 mmol/L (98-107); Estimated Glomerular Filt Rate 57.3 mL/min (>60); Glucose 112 mg/dL (80-110); HEMOLYSIS < 15 (0-50); Potassium 4.4 mmol/L (3.4-5.1); Sodium 138 mmol/L (137-145)
== END ==
PROVIDERS: Family Provider Internal Medicine; PCP Internal Medicine; Referring Provider Internal Medicine; Visit Provider Internal Medicine
DX: I48.0 Paroxysmal atrial fibrillation (principal); I70.1 Atherosclerosis of renal artery
CPT/HCPCS: 36415; 80048

== ENCOUNTER 2020-09-07 08:30 | Outpatient (RCR) | payer MEDICARE, OTHER, SELFPAY ==
--- OUTSIDE RECORDS SUMMARY | 2020-08-18 16:25 | XMS_ITS | Referral Summary ---
:1955 Author Organization [facility] Address [address] [place] [id number] Care Team Providers Name Role Phone Ray Primary Care Provider Reason for Referral Rehabilitation - Outpatient (Routine) Status Reason Specialty Diagnoses / Referred By Referred To Procedures Contact Contact Closed Rehabilitation Diagnoses NSTEMI (non-ST elevated myocardial infarction) ([facility]) Serge Terrie [facility] MD Julissa [address] [place] [address] [address] [id number] [place], [place] Phone: [phone] Reason for Visit Reason Comments Chest Pain Encounter Details Date Type Department Care Team Description 05/18/2020 Office Visit [facility] Terrie Valentine hypertension (Primary Dx); Clinics Cardiology MD Julissa NSTEMI (non-ST elevated myocardial infar ction) ([facility]) [address], [address] [place], [place] [id number] Allergies Active Allergy Reactions Severity Noted Date Comments Adhesive Hives, Rash Medium 06/08/2014 Amlodipine Other (see comments) Low 02/25/2020 edema Furosemide Other (see comments) Low 03/26/2017 Other r eaction(s): had cramps at 4 0 mg daily, k 4.9 Penicillin 02/04/2019 Other reaction( s): hives Penicillin G Rash Low Penicillins Hives Medium 06/08/2014 Soap Itching, Rash Low 06/09/2014 Eriberto chlorahex bath wipes caused it jordy and faint gener alized red blotchy berto h Sulfa (Sulfonamide 03/26/2017 Other renetta ction(s): Antibiotics) Hives Other reaction( s): hives Sulfadiazine Hives, GI intolerance Medium HIVES Sulfasalazine 06/08/2014 documented as of this encounter (statuses as of 05/20/2020) Medications Medication Sig Dispensed Refills Start Date End Date Status pregabalin (LYRICA) Take 200 mg by 0 Active 200 mg capsule mouth 3 (three) times a day. albuterol HFA Inhale 2 puffs 0 A ctive (VENTOLIN HFA) 90 every 6 (six) hours mcg/actuation as needed for inhaler wheezing. fluticasone Administer 1 spray 0 Active (FLONASE) 50 into each nostril mcg/actuation nasal daily as needed for spray rhinitis. metFORMIN Take 500 mg by 0 10/28/2019 Acti ve (GLUCOPHAGE) 500 mg mouth daily with tablet breakfast apixaban (Eliquis) 5 Take 1 tablet (5 mg 180 tablet 3 12/17/19 20 Active mg tablet total) by mouth 2 (two) times a day No further refills until seen by cardiology, call for appointment. furosemide (LASIX) Take 1 tablet (40 90 tablet 3 12/17/2019 Active 40 mg tablet mg total) by mouth daily losartan (COZAAR) Take 1 tablet (100 90 tablet 3 12/17/2019 Active 100 mg tablet mg total) by mouth daily Additional Information Patient taking differently: 100 mg oral Nightly, Reported on 04/19/2020 8:48 AM nitroglycerin (NITROSTAT) Dissolve 1 tablet under 25 tablet 1 12/17/2019 Active 0.4 mg SL tablet the tongue as needed for chest pain every 5 minutes,Call 911 if no resolution after first dose potassium chloride Take 1 tablet (20 mEq 90 tablet 3 0 Active (KLOR-CON M20) 20 mEq CR total) by mouth daily tablet rosuvastatin (CRESTOR) 40 Take 1 tablet (40 mg 90 tablet 3 03/2020 Active mg tablet total) by mouth daily Additional Information Patient taking differently: 40 mg oral Nightly, Reported on 04/19/2020 8:48 AM dronedarone (Multaq) Take 400 mg by 180 tablet 3 12/17/2019 Active 400 mg tablet mouth 2 (two) times a day with meals clopidogreL (PLAVIX) 75 Take 1 tablet (75 90 tablet 0 04/21/20 20 07/20/2020 Active mg tablet mg total) by mouth daily metoprolol succinate XL Take 1 tablet (50 90 tablet 3 04/24/20 20 04/24/2021 Active (TOPROL-XL) 50 mg 24 hr mg total) by mouth tablet daily varenicline (CHANTIX Use as directed on 53 tablet 0 04/24/2020 07/23/2020 Active SHAY) 0.5 mg (11)- 1 mg package (42) tablet instructions, try to quit smoking after 1 week. varenicline (CHANTIX) 1 Take 1 tablet (1 mg 60 tablet 3 201907/23/2020 Active mg tablet total) by mouth 2 (two) times a day Take with full glass of water. pantoprazole (PROTONIX) Take 1 tablet (40 30 tablet 11 05/18/20 20 05/18/2021 Active 40 mg EC tablet mg total) by mouth daily documented as of this encounter (statuses as of 05/20/2020) Active Problems Problem Noted Date NSTEMI (non-ST elevated myocardial infarction) 020 BLACKMAN (dyspnea on exertion) 12/29/2018 Wheezing 08/17/2018 Paroxysmal atrial fibrillation 08/13/2017 Obstructive sleep apnea 08/13/2017 Palpitations 06/04/2017 Hypomagnesemia 06/02/2017 Dyslipidemia 05/31/2017 Peripheral vascular disease 05/31/2017 Family history of coronary artery disease 05/31/2017 Overview: Less than 60 years of age Hyperlipidemia 06/11/2014 documented as of this encounter (statuses as of 05/20/2020) Resolved Problems Problem Noted Date Resolved Date CAD (coronary artery disease) 05/31/2017 08/17/2018 Overview: 1 BAL- LAD, radial graft to pda; 2V CABG; 06/08/2014 2 NSTEMI; 05/2014 Hypertension 05/31/2017 08/17/2018 documented as of this encounter (statuses as of 05/20/2020) Immunizations Name Administration Dates Next Due FLU PF 6-35 Mo (Fluzone 0.25 mL 04/24/2015 Syringe) Influenza, Quadrivalent 04/24/2015, 05/02/2014, 07/17/2013, 07/17/2012, 05/07/1998, 05/15/1997, 05/13/1996 Influenza, Seasonal, Injectable 05/02/2014, 07/17/2013, 04/10, 05/15/1997, 05/13/1996 Live Zoster (Zostavax) 07/21/2016 Pneumococcal Conjugate PCV13 05/02/2014 ([id number]) Pneumococcal Polysaccharide PPV23 04/24/2015 ([id number]) documented as of this encounter Social History Tobacco Use Types Packs/Day Years Used Date Current Every Day Smoker 40 Smokeless Tobacco: Never Used Comments: Usage per day: 4 Cigarettes Alcohol Use Drinks/Week oz/Week Comments Defer Sex Assigned at Date Recorded Female 04/17/2019 12:30 PM PDT COVID-19 Exposure Response Date Recorded In the last month, have you been in contact with No / Unsure 04/19/2020 10:37 AM PDT someone who was confirmed or suspected to have Coronavirus / COVID-19? documented as of this encounter Last Filed Vital Signs Vital Sign Reading Time Taken Comments Blood Pressure 108/58 05/18/2020 2:37 PM PST Pulse 58 05/18/2020 2:37 PM PST Temperature - - Respiratory Rate - - Oxygen Saturation - - Inhaled Oxygen Concentration - - Weight 110 kg (243 lb) 05/18/2020 2:37 PM PST Height 177.8 cm (5' 10) 05/18/2020 2:37 PM PST Body Mass Index 34.87 05/18/2020 2:37 PM PST documented in this encounter Patient Instructions Patient InstructionsTerrie Valentine MD - 05/18/2020 2:30 PM PST1. Continue pepcid 2. Try protonix also known as pantoprazole. It It is similar chemically to Prilosec (Omeprazole), but less likely to interact with your plavix 3. Your dose is 40 mg once a day about 30 min before breakfast 4. If you continue to have heartburn despite adjusting diet, taking Protonix and Pepcid, please callme, and I will send you to GI. 5. Check kidney function in 2 weeks 6. When you blood pressure cuff does not work pleas get a recording using your kardia machine and send it to me. I think you are in afib 7. Follow up in 1 month 8. We'll set you up with cardiac rehab in [place]. Rochelle will be in touch with you. documented in this encounter Progress Notes Terrie Valentine MD - 05/18/2020 2:30 PM PST Subjective Patient ID: Luz Mireles is a 65 y.o. female that had concerns including Chest Pain. HPI: Pt is a 65 yo woman with CAD s/p CABG, PAF (on eliquis and multaq), Pad s/p left CEA for severe ICA stenosis, HTN (controlled), HL (controlled), elevated Lp(a) and ongoing smoking. Her post CABG course was complicated by de angel lesion in the circumflex status post drug-eluting stent deployed 2019. Since last circumflex intervention and subsequent discharge on April 21, 2020 patient developed current jaw pain. She had jaw pain radiating down her neck and feeling like her muscles were tight. It was similar in quality to her index angina. It happened on April 22 and . She did not say anything to her . Eventually, she called our clinic and reported that she had these problems on May 03, 2020. She says she was afraid she had a heart attack. We instructed her to go to the emergency room. She was evaluated at [facility] on her assessment there was reassuring. She was in normal sinus rhythm. Troponins were negative. EKG normal. The only abnormality we discerned is that her creatinine was 1.6. Normal baseline creatinine is 1.3. (up 23% from baseline) Since for evaluation at [facility] May 03 she has not had any recurrent jaw pain. PAST CARDIAC HISTORY CAD s/p CABG; she has ostial LM and ostial RCA dz s/p arterial bypass 05/2014. BAL-LAD, radial-RCA Complicated by non-STEMI 04/2020. Cath with de angel pLCX 98% lesion s/p Keith 2.5x15 Resolute MARGARET. patent LIMA_LAD, patent radial PDA, occluded pRCA Post op afib followed by new onset PAF 07/2017 HTN HL plus elevated Lp(a) 102 h/o smoking - ONGOING PAD - s/p left CEA ?? PAST CARDIAC EVALUATION recath 05/01/2015 - patent grafts; diffusely diseased distal LAD echo 05/12/2016; showed EF around 55% with focal WMA in distal septal segment best appreciated on apical 2 chamber view. ??It is completely unchanged compared to prior study. ?? Past Medical History: Diagnosis Date ??? Abnormal Pap smear of cervix ??? Aortic stenosis ??? Arrhythmia ??? Cancer (CMS/HCC) ??? Coronary artery disease ??? Heart murmur ??? Hyperlipidemia ??? Hypertension Past Surgical History: Procedure Laterality Date ??? APPENDECTOMY ??? BACK SURGERY ??? CORONARY ANGIOPLASTY ??? CORONARY ARTERY BYPASS GRAFT cabg x 2 06/23 ??? HYSTERECTOMY ??? NECK SURGERY Family History Problem Relation Age of Onset ??? Stroke Mother ??? Other Father cardiovascular disease ??? Kidney cancer Brother ??? Lung cancer Sister Social History Socioeconomic History ??? Marital status: Spouse name: Not on file ??? Number of children: Not on file ??? Years of education: Not on file ??? Highest education level: Not on file Occupational History ??? Not on file Social Needs ??? Financial resource strain: Not on file ??? Food insecurity Worry: Not on file Inability: Not on file ??? Transportation needs Medical: Not on file Non-medical: Not on file Tobacco Use ??? Smoking status: Current Every Day Smoker Years: 40.00 ??? Smokeless tobacco: Never Used ??? Tobacco comment: Usage per day: 4 Cigarettes Substance and Sexual Activity ??? Alcohol use: Defer ??? Drug use: Yes Types: Marijuana Comment: Vape- a couple times per week ??? Sexual activity: Not on file Lifestyle ??? Physical activity Days per week: Not on file Minutes per session: Not on file ??? Stress: Not on file Relationships ??? Social connections Talks on phone: Not on file Gets together: Not on file Attends hinduism service: Not on file Active member of club or organization: Not on file Attends meetings of clubs or organizations: Not on file Relationship status: Not on file Other Topics Concern ??? Not on file Social History Narrative ??? Not on file Allergies Allergen Reactions ??? Adhesive Hives and Rash ??? Penicillins Hives ??? Sulfadiazine Hives and GI intolerance HIVES ??? Penicillin Other reaction(s): hives ??? Sulfa (Sulfonamide Antibiotics) Other reaction(s): Hives Other reaction(s): hives ??? Sulfasalazine ??? Amlodipine Other (see comments) edema ??? Furosemide Other (see comments) Other reaction(s): had cramps at 40 mg daily, k 4.9 ??? Penicillin G Rash ??? Soap Itching and Rash Eriberto chlorahex bath wipes caused itching and faint generalized red blotchy rash Current Medication List Sig albuterol HFA (VENTOLIN HFA) 90 mcg/actuation inhaler Inhale 2 puffs every 6 (six) hours as needed for wheezing. apixaban (Eliquis) 5 mg tablet Take 1 tablet (5 mg total) by mouth 2 (two) times a day No further refills until seen by cardiology, call for appointment. clopidogreL (PLAVIX) 75 mg tablet Take 1 tablet (75 mg total) by mouth daily dronedarone (Multaq) 400 mg tablet Take 400 mg by mouth 2 (two) times a day with meals fluticasone (FLONASE) 50 mcg/actuation nasal spray Administer 1 spray into each nostril daily as needed for rhinitis. furosemide (LASIX) 40 mg tablet Take 1 tablet (40 mg total) by mouth daily losartan (COZAAR) 100 mg tablet Take 1 tablet (100 mg total) by mouth daily metFORMIN (GLUCOPHAGE) 500 mg tablet Take 500 mg by mouth daily with breakfast metoprolol succinate XL (TOPROL-XL) 50 mg 24 hr tablet Take 1 tablet (50 mg total) by mouth daily nitroglycerin (NITROSTAT) 0.4 mg SL tablet Dissolve 1 tablet under the tongue as needed for chest pain every 5 minutes,Call 911 if no resolution after first dose pantoprazole (PROTONIX) 40 mg EC tablet Take 1 tablet (40 mg total) by mouth daily potassium chloride (KLOR-CON M20) 20 mEq CR tablet Take 1 tablet (20 mEq total) by mouth daily pregabalin (LYRICA) 200 mg capsule Take 200 mg by mouth 3 (three) times a day. rosuvastatin (CRESTOR) 40 mg tablet Take 1 tablet (40 mg total) by mouth daily varenicline (CHANTIX SHAY) 0.5 mg (11)- 1 mg (42) tablet Use as directed on package instructions, try to quit smoking after 1 week. varenicline (CHANTIX) 1 mg tablet Take 1 tablet (1 mg total) by mouth 2 (two) times a day Take withfull glass of water. Review of Systems Constitutional: Negative for fatigue and unexpected weight change. Eyes: Negative for visual disturbance. Respiratory: Positive for shortness of breath. Negative for chest tightness. Cardiovascular: Negative for chest pain, palpitations and leg swelling. Gastrointestinal: Negative for blood in stool. Endocrine: Negative for polydipsia. Genitourinary: Negative for hematuria. Skin: Negative for rash. Neurological: Negative for dizziness, weakness and light-headedness. Hematological: Does not bruise/bleed easily. Psychiatric/Behavioral: The patient is not nervous/anxious. All other systems reviewed and are negative. Objective BP 108/58 (BP Location: Left arm, Patient Position: Sitting) Pulse (!) 58 Ht 1.778 m Wt 110kg BMI 34.87 kg/m?? Physical Exam: General Appearance: Well-nourished, pleasant, cooperative, no apparent distress HEET: Normocephalic atraumatic, EOMI, no scleral icterus, no arcus, tongue midline, mucous membranesmoist, good dentition Neck: No obvious mass, supple Respiratory: Good aeration, clear to auscultation and percussion, no rales or wheeze Cardiovascular: Nondisplaced PMI, RRR, normal S1 and normal S2, no murmurs/rubs/gallops, JVP 4-5 cm,no JVD Pulses: Carotid and femoral pulses 2+ bilaterally without bruit, dorsalis pedis and anterior tibial pulses 2+ bilaterally Abdomen: Soft, nondistended, nontender, no heptosplenomegally, no hepatojugular reflux, normal bowelsounds without bruits Extremities: No clubbing, cyanosis or edema Neuro: Alert, no facial droop, tongue midline, no gross motor deficits Psych: Appropriate affect, normal mentation and memory Skin: Warm and dry, no rashes on face, neck, and lower extremities Assessment/Plan Diagnoses and all orders for this visit: Essential hypertension - Basic Metabolic Panel Expires 12 Months; Future NSTEMI (non-ST elevated myocardial infarction) (CMS/HCC) - XTRNL Referral to Cardiac Rehabilitation Other orders - pantoprazole (PROTONIX) 40 mg EC tablet; Take 1 tablet (40 mg total) by mouth daily Assessment/Plan Comments: Pt is a 65 yo woman with h/o CAD s/p CABG 2013, PAF (on eliquis and multaq), Pad s/p left CEA for severe ICA stenosis, HTN and HL and ongoing smoking; she presents with chief complaint of b/l neck painradiating to her jaw. She was dx'ed with NSTEMI s/p PCI ostial LCX with MARGARET 04/19/2020 with excellent angiographic result. Has problem with intermittent palpitations and neck pain that is nonexertional reminiscent of her GERD symptoms. nstemi - on Plavix ideally until 04/2021. Pt was instructed to stop omeprazole due to possible interaction with Clopidogrel, and try Famotidine instead. Has history of reflux and it sounds like famotidine is not working to control her chest discomfort. She received the following instructions. 1. Continue pepcid 2. Try protonix also known as pantoprazole. It It is similar chemically to Prilosec (Omeprazole), but less likely to interact with your plavix 3. Your dose is 40 mg once a day about 30 min before breakfast 4. If you continue to have heartburn despite adjusting diet, taking Protonix and Pepcid, please callme, and I will send you to GI. 5. Check kidney function in 2 weeks 6. When you blood pressure cuff does not work pleas get a recording using your kardia machine and send it to me. I think you are in afib 7. Follow up in 1 month 8. We'll set you up with cardiac rehab in [place]. Rochelle will be in touch with you. High risk meds -on Multaq. tsh wnl as of 11/2019; next labs 11/2020 PAD - s/p left CEA c/b some left sided facial droop. Closely monitored by Dr. Reed. Hl - continue lipitor 80 mg daily; tc as of 11/2019 was 102 tg 118 hdl 39 ldl 39 Elevated lipoprotein a -we mailed patient contact letter for Jamn clinical trial information. She is not sure if she wants to participate and certainly no urgent action is needed. paf - on eliquis 5 mg daily; continue multaq; PVC's -continue Toprol-XL 50 mg daily HTN - controlled on lasix, losartan and metoprolol. Smoking - try chantix again Deconditioning -refer to cardiac rehab Electronically signed by Terrie Valentine MD 05/20/2020 11:15 AM documented in this encounter Plan of Treatment Upcoming Encounters Date Type Specialty Care Team Description 07/16/2020 Office Visit Cardiology Alen Valentine MD [address] [facility] [address] [place] [address] [phone] Scheduled Orders Name Type Priority Associated Diagnoses Order S chedule Basic Metabolic Panel Lab Routine Essential hypertens ion Expected: 06/01/2020, Expires 12 Months Expires: 1 07/18/2020 Scheduled Referrals Name Type Priority Associated Order Schedule Diagnoses XTRNL Referral to Outpatient Referral Routine NSTEMI (non-ST O rdered: Cardiac Rehabilitation elevated 05/18 myocardial infarction) ([facility]) documented as of this encounter Implants Implanted Type Area Machine Welt Butter Device Identifier Shelf Exp iration Model / Date Serial / L ot Stent Resol [place] [employer] 2.5*12mm - [id number] Med[employer]onic [id number] / Implanted: Qty: 1 on 04/20/[address] 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
== END 2020-09-07 09:30 ==
LOC: CAR 08:30
PROVIDERS: Family Provider Internal Medicine; PCP Internal Medicine; Referring Provider Internal Medicine; Visit Provider Internal Medicine
DX: I21.3 ST elevation (STEMI) myocardial infarction of unspecified site (principal)
CPT/HCPCS: 93798

== ENCOUNTER 2020-10-17 13:34 | Emergency (ER) | payer MEDICARE, OTHER, SELFPAY ==
[2020-10-17] VITALS (58 sets, daily range): BP systolic 97–183; BP diastolic 58–105; PULSE 51–138; RESP 12–49; TEMP 36.6; O2SAT 94–100
--- NOTE | 2020-10-17 13:39 | DI.RAD.S_ITS ---
PROCEDURE: XR CHEST 1V INDICATIONS: Chest pain TECHNIQUE: One view of the chest was acquired. COMPARISON: [facility], CR, XR CHEST 1V, 07/22/2020, 9:23. FINDINGS: Surgical changes and devices: None. Lungs and pleura: Lungs are clear. No pleural effusions or pneumothorax. Mediastinum: Mediastinal contours appear normal. Heart size is normal. Bones and chest wall: No suspicious bony lesions. Overlying soft tissues appear unremarkable. IMPRESSION: No acute cardiopulmonary process demonstrated radiographically. Dictated by: Kaushik New M.D. on 10/17/2020 at 14:35 Approved by: Kaushik New M.D. on 10/17/2020 at 14:35
--- NOTE | 2020-10-17 13:43 | ED.CHESTPAIN ---
HPI - Chest Pain General Chief Complaint: Chest Pain Stated Complaint: chest pain, tight jaw Time Seen by Provider: 10/17/20 13:37 Source: patient and family Mode of arrival: Ambulatory Limitations: no limitations History of Present Illness HPI narrative: This 65-year-old female daily smoker presents with her in the chief complaint of heavy anterior chest pressure with radiation to her jaw and shortness of breath that started at about 11 30 this afternoon. She is not dizzy nor weak or lightheaded. She denies any fever or shortness of breath. She has had no cough. She does have a history of paroxysmal AFib and takes Eliquis and has done so for quite some time. She denies nausea, vomiting or diarrhea. She denies any obvious provocation, palliation of her symptoms. MD complaint: chest pain Onset (ago): hour(s) Duration: constant Onset: during rest Pain location: substernal Severity: moderate Quality: tightness and aching Pain radiation: jaw/teeth Relieving factors: nothing Exacerbating factors: nothing Treatments prior to arrival chest pain: none Related Data On Oral Contraceptives: Yes Home Medications Medication Instructions Recorded Confirmed apixaban [Eliquis] mg 10/17/20 dronedarone [Multaq] mg 10/17/20 metoprolol succinate PO 10/17/20 Allergies Allergy/AdvReac Type Severity Reaction Status Date / Time Penicillins [PENICILLINS] Allergy Unknown Verified 10/17/20 13:50 Sulfa (Sulfonamide Allergy Unknown Verified 10/17/20 13:50 Antibiotics) [SULFA (SULFONAMIDE ANTIBIOTICS)] Review of Systems Constitutional Constitutional: Denies chills, Denies fatigue, Denies fever(s), Denies frequent falls, Denies lethargy and Denies weakness Eyes Eyes: Denies change in vision, Denies eye discharge, Denies irritation and Denies loss of vision ENT Ears, Nose, Mouth, and Throat: Denies change in voice, Denies dizziness, Denies neck pain, Denies sore throat and Denies throat swelling Cardiovascular Cardiovascular: Reports chest pain, Denies irregular heart rhythm, Denies lightheadedness, Denies palpitations, Denies dyspnea, Denies dyspnea on exertion and Denies orthopnea Respiratory Respiratory: Denies cough, Denies dyspnea, Denies dyspnea on exertion and Denies wheezing Gastrointestinal Gastrointestinal: Denies abdominal pain, Denies change in bowel habits, Denies diarrhea, Denies nausea and Denies vomiting Musculoskeletal Musculoskeletal: Denies neck pain and Denies numbness Integumentary/Breasts Skin/Breast: Denies pruritus, Denies erythema, Denies rash and Denies wounds Neurologic Neurologic: Denies behavioral changes, Denies confusion, Denies dizziness, Denies frequent falls, Denies loss of vision, Denies numbness and Denies weakness Psychiatric Psychiatric: Denies anxiety, Denies behavioral changes, Denies confusion, Denies depression, Denies homicidal ideation and Denies suicidal ideation Endocrine Endocrine: Denies fatigue, Denies flushing and Denies palpitations Hematologic/Lymphatic Hematologic/Lymphatic: Denies easy bruising Allergic/Immunologic Allergic/Immunologic: Denies urticaria, Denies throat swelling and Denies wheezing Patient History Medical History (Updated 10/17/20 @ 15:28 by Tariq Jiménez DO) CAD (coronary artery disease) Neuropathy Spinal stenosis in cervical region Spinal stenosis of lumbar region Surgical History H/O cervical spine surgery History of lumbar surgery Hx of CABG Social History Smoking Status: Current every day smoker Smoking Status: Current every day smoker alcohol intake frequency: 0-2 drinks per day Substance Use Type: marijuana Exam Narrative Exam Narrative: GENERAL: [65] year old patient appears stated age. Well-nourished, well-developed patient, in mild distress. HEAD: Atraumatic. Normocephalic. EYES: Pupils equal round and reactive. Extraocular motions intact. No scleral icterus. No injection or drainage. ENT: Nose without bleeding, purulent drainage. Throat without erythema, tonsillar hypertrophy or exudate. Airway patent. NECK: Trachea midline. Non tender CARDIOVASCULAR: Tachycardic and irregular rhythm without murmurs, gallops, or rubs. RESPIRATORY: Clear to auscultation. Breath sounds equal bilaterally. No wheezes, rales, or rhonchi. GASTROINTESTINAL: Abdomen soft, non-tender, nondistended. EXTREMITIES: No edema or joint tenderness. BACK: Nontender without deformity or crepitance. No flank tenderness. NEURO: AOx3. SKIN: No rash or erythema of visible areas Initial Vital Signs Initial Vital Signs: Vital Signs Temperature 97.8 F 10/17/20 13:45 Pulse Rate 136 H 10/17/20 13:45 Respiratory Rate 18 10/17/20 13:45 Blood Pressure 183/90 H 10/17/20 13:45 Pulse Oximetry 97 10/17/20 13:45 Procedures Cardioversion Consent Signed: Yes Stability: Unstable Number of attempts (shocks): 3 Joules used: 150 Cardiac rhythm post-cardioversion: Unchanged Procedural Sedation Consent signed: Yes Time out performed: Yes Indication: cardioversion ASA Class: III Mallampati Airway Classification: Class II Preparation: personnel monitor applied, pulse oximeter, capnometry used, supplemental O2 applied, suction/airway equipment at bedside and IV secured IV Propofol dose (mg): 50 Intraservice time/total sedation time (min): 10 ED Sedation Level: Moderate (Concious) Complications: hypotension Course Orders Ordered: ED Orders 10/17/20 13:39 XR chest 1V Stat EKG-12 Lead Stat 10/17/20 13:51 Complete Blood Count AUTO DIFF Stat Comprehensive Metabolic Panel Stat Lipase Stat Partial Thromboplastin Time Stat Prothrombin Time INR Stat Troponin & CK Cardiac Panel Stat 10/17/20 16:15 Troponin I Stat Discontinued Medications Diltiazem HCl (Diltiazem 5 Mg/Ml Sdv) 10 mg IV NOW ONE Stop: 10/17/20 14:22 Last Admin: 10/17/20 14:47 Dose: 10 mg Documented by: SHYLA Diltiazem HCl 125 mg/ Sodium (Chloride) 125 mls @ 5 mls/hr IV TITRATE [facility]; Protocol Last Titration: 10/17/20 15:52 Dose: 0 mg/hr, 0 mls/hr Documented by: Titration: 10/17/20 15:07 Dose: 10 mg/hr, 10 mls/hr Documented by: Admin: 10/17/20 14:48 Dose: 5 mg/hr, 5 mls/hr Documented by: SHYLA Sodium Chloride (Normal Saline 0.9%) 1,000 mls @ 1,000 mls/hr IV BOLUS ONE Stop: 10/17/20 15:52 Last Infusion: 10/17/20 16:35 Dose: 0 mls/hr Documented by: Admin: 10/17/20 14:25 Dose: 1,000 mls/hr Documented by: SHYLA Amiodarone HCl/Dextrose (Nexterone) 150 mg in 100 mls @ 600 mls/hr IV NOW ONE; Protocol Stop: 10/17/20 15:50 Amiodarone HCl/Dextrose (Nexterone) 360 mg in 200 mls @ 33.333 mls/hr IV NOW ONE; Protocol Stop: 10/17/20 21:40 Propofol (Propofol 200 Mg/20 Ml Vial) 110 mg 1 mg/kg (110 mg) IV NOW ONE Stop: 10/17/20 14:03 Last Admin: 10/17/20 14:15 Dose: 50 mg Documented by: SHYLA Reevaluation(s) Reevaluation #1: Though cardioversion was unsuccessful the patient has been completely asymptomatic since after the attempt. Her heart rate after the event his decreased to the 120s. Repeat EKG shows no ischemic change and improvement of the ST depressions noted earlier. Reevaluation #2: Upon arrival of the hospitalist to admit the patient and before amiodarone is given the patient had a conversion to a sinus rhythm in the mid to upper 50s. Consultations Consultation #1: Call to Cardiology (Summer) upon unsuccessful attempt at cardioversion and he recommends amio bolus followed by drip and admission to the hospital. Consultation #2: Hospitalist happy to accept and will see patient at the bedside Consultation #3: Call back to Dr. Wheeler upon receipt of 2nd troponin which had increased to 0.170. Given patient is asymptomatic presentation for the duration of visit, lack of classic cardiac symptoms provocation, diaphoresis, dizziness, lightheadedness and apparent link between symptoms and rate he states the patient can be safely discharged with close follow-up. Vital Signs Vital signs: Vital Signs - 8 hr 10/17/20 13:45 10/17/20 13:59 10/17/20 14:00 Temperature 97.8 F Pulse Rate 136 H 135 H 136 H Respiratory Rate 18 49 H 36 H Blood Pressure 183/90 H Pulse Oximetry 97 97 98 10/17/20 14:01 10/17/20 14:05 10/17/20 14:06 Temperature Pulse Rate 136 H 134 H 138 H Respiratory Rate 18 17 17 Blood Pressure 142/105 H 122/89 Pulse Oximetry 98 97 97 10/17/20 14:10 10/17/20 14:15 10/17/20 14:20 Temperature Pulse Rate 129 H 128 H 129 H Respiratory Rate 24 16 23 Blood Pressure 142/90 H 126/91 H 116/81 Pulse Oximetry 97 97 95 10/17/20 14:25 10/17/20 14:30 10/17/20 14:31 Temperature Pulse Rate 128 H 129 H 129 H Respiratory Rate 23 19 25 H Blood Pressure 97/63 119/99 H Pulse Oximetry 97 97 97 10/17/20 14:35 10/17/20 14:40 10/17/20 14:45 Temperature Pulse Rate 129 H 128 H 126 H Respiratory Rate 14 17 27 H Blood Pressure 109/92 H 131/83 Pulse Oximetry 99 97 97 10/17/20 14:46 10/17/20 14:47 10/17/20 14:50 Temperature Pulse Rate 123 H 125 H 121 H Respiratory Rate 25 H 14 Blood Pressure 125/101 H 125/101 H Pulse Oximetry 98 98 10/17/20 14:51 10/17/20 14:55 10/17/20 15:00 Temperature Pulse Rate 126 H 125 H 118 H Respiratory Rate 28 H 24 17 Blood Pressure 125/80 136/86 108/76 Pulse Oximetry 97 98 98 10/17/20 15:05 10/17/20 15:10 10/17/20 15:15 Temperature Pulse Rate 119 H 119 H 116 H Respiratory Rate 48 H 15 17 Blood Pressure 114/68 125/66 117/71 Pulse Oximetry 97 96 95 10/17/20 15:20 10/17/20 15:25 10/17/20 15:30 Temperature Pulse Rate 110 H 110 H 109 H Respiratory Rate 24 22 25 H Blood Pressure 107/59 L 109/67 125/78 Pulse Oximetry 94 96 97 10/17/20 15:35 10/17/20 15:48 10/17/20 15:50 Temperature Pulse Rate 105 H 113 H 111 H Respiratory Rate 27 H 17 Blood Pressure 120/60 Pulse Oximetry 97 98 99 10/17/20 15:51 10/17/20 15:55 10/17/20 15:59 Temperature Pulse Rate 115 H 108 H 55 L Respiratory Rate 13 12 30 H Blood Pressure 155/73 H 161/69 H Pulse Oximetry 99 98 97 10/17/20 16:00 10/17/20 16:05 10/17/20 16:10 Temperature Pulse Rate 54 L 53 L 52 L Respiratory Rate 40 H 20 28 H Blood Pressure 153/71 H Pulse Oximetry 98 97 98 10/17/20 16:15 10/17/20 16:20 10/17/20 16:25 Temperature Pulse Rate 54 L 51 L 61 Respiratory Rate 19 25 H 22 Blood Pressure 129/68 Pulse Oximetry 96 99 98 10/17/20 16:30 10/17/20 16:35 10/17/20 16:40 Temperature Pulse Rate 51 L 57 L 52 L Respiratory Rate 19 32 H 24 Blood Pressure 115/58 L Pulse Oximetry 99 98 99 10/17/20 16:45 10/17/20 16:50 10/17/20 16:55 Temperature Pulse Rate 57 L 51 L 53 L Respiratory Rate 33 H 17 28 H Blood Pressure 109/59 L Pulse Oximetry 98 99 100 10/17/20 17:00 10/17/20 17:05 10/17/20 17:10 Temperature Pulse Rate 52 L 53 L 61 Respiratory Rate 18 14 31 H Blood Pressure 133/60 Pulse Oximetry 98 99 98 10/17/20 17:15 10/17/20 17:20 10/17/20 17:25 Temperature Pulse Rate 60 53 L 58 L Respiratory Rate 26 H 28 H 29 H Blood Pressure 152/68 H Pulse Oximetry 99 99 99 10/17/20 17:30 10/17/20 17:35 10/17/20 17:40 Temperature Pulse Rate 60 58 L 54 L Respiratory Rate 24 23 38 H Blood Pressure 154/72 H Pulse Oximetry 99 99 99 10/17/20 17:45 10/17/20 17:46 10/17/20 17:51 Temperature Pulse Rate 58 L 60 77 Respiratory Rate 30 H 37 H 20 Blood Pressure 143/65 H Pulse Oximetry 98 99 10/17/20 17:55 Temperature Pulse Rate 55 L Respiratory Rate 26 H Blood Pressure Pulse Oximetry 99 MDM - Chest Pain Lab Data Result diagrams: 10/17/20 13:51 10/17/20 13:51 Labs: Lab Results 10/17/20 10/17/20 10/17/20 Range/Units 13:51 13:51 13:51 WBC 9.1 (4.5-11.0) X10^3/uL RBC 5.30 H (4.0-5.2) X10^6/uL Hgb 15.2 (12.0-16.0) g/dL Hct 45.2 (36-46) % MCV 85.4 (80-100) fL MCH 28.6 (26-34) PG MCHC 33.5 (30-36) % RDW 14.2 (11.6-14.8) % Plt Count 221 (150-400) X10^3/uL Neut % (Auto) 65.7 (50-75) % Lymph % (Auto) 24.8 L (25-40) % [place] % (Auto) 6.5 (3-14) % Eos % (Auto) 2.1 (2-4) % Baso % (Auto) 0.9 (0-2) % Neut # (Auto) 6000 (8829-6330) /uL Lymph # (Auto) 2300 (4939-8568) /uL [place] # (Auto) 600 (0-900) /uL Eos # (Auto) 200 (0-450) /uL Baso # (Auto) 100 (0-100) /uL PT 15.6 H (10.1-12.7) SECONDS INR 1.4 H (0.9-1.3) APTT 36 (26.4-36.2) SECONDS Sodium 142 (137-145) mmol/L Potassium 3.4 (3.4-5.1) mmol/L Chloride 104 (98-107) mmol/L Carbon Dioxide 28 (22-32) mmol/L BUN 21 H (7-17) mg/dL Creatinine 1.04 (0.52-1.04) mg/dL Estimated GFR 52.9 L (>60) mL/min BUN/Creatinine Ratio 20.2 (6-22) Glucose 137 H (80-110) mg/dL Calcium 10.1 (8.4-10.2) mg/dL Total Bilirubin 0.3 (0.2-1.3) mg/dL AST 33 (14-36) IU/L ALT 29 (<35) IU/L Alkaline Phosphatase 87 (38-126) U/L Total Creatine Kinase 189 H (30-135) U/L CK-MB (CK-2) 2.52 H (<2.37) ng/mL CK-MB (CK-2) Rel Index 1.3 L (1.5-5.0) % Troponin I 0.101 H (0.01-0.034) ng/mL Total Protein 8.5 H (6.3-8.2) g/dL Albumin 4.7 (3.5-5.0) g/dL Globulin 3.8 (1.7-4.1) g/dL Albumin/Globulin Ratio 1.2 (1.0-2.8) Lipase 163 (23-300) U/L 10/17/20 Range/Units 16:15 WBC (4.5-11.0) X10^3/uL RBC (4.0-5.2) X10^6/uL Hgb (12.0-16.0) g/dL Hct (36-46) % MCV (80-100) fL MCH (26-34) PG MCHC (30-36) % RDW (11.6-14.8) % Plt Count (150-400) X10^3/uL Neut % (Auto) (50-75) % Lymph % (Auto) (25-40) % [place] % (Auto) (3-14) % Eos % (Auto) (2-4) % Baso % (Auto) (0-2) % Neut # (Auto) (8336-6976) /uL Lymph # (Auto) (1738-2827) /uL [place] # (Auto) (0-900) /uL Eos # (Auto) (0-450) /uL Baso # (Auto) (0-100) /uL PT (10.1-12.7) SECONDS INR (0.9-1.3) APTT (26.4-36.2) SECONDS Sodium (137-145) mmol/L Potassium (3.4-5.1) mmol/L Chloride (98-107) mmol/L Carbon Dioxide (22-32) mmol/L BUN (7-17) mg/dL Creatinine (0.52-1.04) mg/dL Estimated GFR (>60) mL/min BUN/Creatinine Ratio (6-22) Glucose (80-110) mg/dL Calcium (8.4-10.2) mg/dL Total Bilirubin (0.2-1.3) mg/dL AST (14-36) IU/L ALT (<35) IU/L Alkaline Phosphatase (38-126) U/L Total Creatine Kinase (30-135) U/L CK-MB (CK-2) (<2.37) ng/mL CK-MB (CK-2) Rel Index (1.5-5.0) % Troponin I 0.171 H* (0.01-0.034) ng/mL Total Protein (6.3-8.2) g/dL Albumin (3.5-5.0) g/dL Globulin (1.7-4.1) g/dL Albumin/Globulin Ratio (1.0-2.8) Lipase (23-300) U/L Point of Care Testing Test Results Not applicable ECG Data Attestation: I personally reviewed and interpreted this ECG as follows: Interpretation: Rapid atrial fibrillation in the 140s with widespread ST depressions MDM Narrative Medical decision making narrative: Patient presents with anterior chest pressure and radiation into her neck along with rapid irregular heart rate. She denies any provocation of her symptoms and is not dizzy, weak or lightheaded. EKG showed ST depressions and patient was sedated and attempts made to cardiovert. Though the cardioversion was unsuccessful she was symptom-free afterwards and for the duration of her visit. Repeat EKG showed no ischemic change. Patient continued to be asymptomatic. Troponin did elevate but after lengthy conversation with Cardiology we elected to allow her to go home given the fact that her symptoms were so tightly linked to her rate, also we expected elevation in troponin after 3 cardioversions. She was given extensive return precautions. She and understand and agree with the diagnosis and plan. Questions answered to apparent satisfaction Discharge Plan Departure Patient Disposition: Home Clinical Impression: Atrial fibrillation with rapid ventricular response Instructions: DI for Arrhythmias Activity Restrictions/Additional Instructions: *You have been diagnosed with [rapid atrial fibrillation with troponin leak.] *What to do: *Take medications as directed *Follow up with your primary care provider in 2-3 days, call for an appointment. Let them know you were seen in the Emergency Department and that we ask that you be seen in follow up *Return to ER if you should have any new, worsening or concerning symptoms Prescriptions: No Action Multaq 400 mg tablet RF: 0 Eliquis 5 mg tablet RF: 0 metoprolol succinate 50 mg tablet extended release 24 hr PO RF: 0 Referrals: Noah Ray MD [Primary Care Provider] -
[2020-10-17 14:00] LABS: Add Manual Diff / Slide Review NO; Basophils Absolute Auto 100 /uL (0-100); Basophils Percent Auto 0.9 % (0-2); Eosinophils Absolute Auto 200 /uL (0-450); Eosinophils Percent Auto 2.1 % (2-4); Hematocrit 45.2 % (36-46); Hemoglobin 15.2 g/dL (12.0-16.0); Lymphocytes Absolute Auto 2300 /uL (1100-4500); Lymphocytes Percent Auto 24.8 % (25-40); Mean Corpuscular HGB Conc 33.5 % (30-36); Mean Corpuscular Hemoglobin 28.6 PG (26-34); Mean Corpuscular Volume 85.4 fL (80-100); Monocytes Absolute Auto 600 /uL (0-900); Monocytes Percent Auto 6.5 % (3-14); Neutrophils Absolute Auto 6000 /uL (1500-7000); Neutrophils Percent Auto 65.7 % (50-75); Platelet Count 221 X10^3/uL (150-400); Red Cell Distribution Width 14.2 % (11.6-14.8); White Blood Cell Count 9.1 X10^3/uL (4.5-11.0)
[2020-10-17 14:09] LABS: INR 1.4 (0.9-1.3); Prothrombin Time 15.6 SECONDS (10.1-12.7)
[2020-10-17 14:11] LABS: PTT Partial Thromboplastin Tim 36 SECONDS (26.4-36.2)
[2020-10-17 14:12] LABS: Alanine Aminotransferase 29 IU/L (<35); Albumin 4.7 g/dL (3.5-5.0); Albumin Globulin Ratio 1.2 (1.0-2.8); Alkaline Phosphatase 87 U/L (38-126); Aspartate Aminotransferase 33 IU/L (14-36); BUN Creatinine Ratio 20.2 (6-22); Bilirubin Total 0.3 mg/dL (0.2-1.3); Blood Urea Nitrogen 21 mg/dL (7-17); Calcium 10.1 mg/dL (8.4-10.2); Carbon Dioxide 28 mmol/L (22-32); Chloride 104 mmol/L (98-107); Creatine Kinase 189 U/L (30-135); Estimated Glomerular Filt Rate 52.9 mL/min (>60); Globulin 3.8 g/dL (1.7-4.1); Glucose 137 mg/dL (80-110); HEMOLYSIS < 15 (0-50); Lipase 163 U/L (23-300); Potassium 3.4 mmol/L (3.4-5.1); Sodium 142 mmol/L (137-145); Total Protein 8.5 g/dL (6.3-8.2)
[2020-10-17] MEDS: propofoL 200 MG/20 ML VIAL 110 MG IV (14:15)
[2020-10-17 14:24] LABS: Troponin I 0.101 ng/mL (0.01-0.034)
[2020-10-17] MEDS: SODIUM CHLORIDE 0.9% 1,000 ML 1000 ML IV (14:25)
[2020-10-17 14:27] LABS: CKMB % Relative Index 1.3 % (1.5-5.0); Creatine Kinase MB 2.52 ng/mL (<2.37)
--- NOTE | 2020-10-17 14:28 | PC.NURSE ---
verbal order recieved for one liter bolus NS for procedural hypotension.
--- NOTE | 2020-10-17 14:37 | PC.NURSE ---
patient sedated with propofol pushed by Dr Jiménez, within minutes first attempt to cardioversion at 150J initially looked like p waves present then converted back to afib. second attempt at 200J without cardioversion. Third attempt at 150J with no cardioversion. Patient awake, a&o x 4 tolerated procedure well requiring only jaw thrust to maintain patent airway and initiation of a liter bolus to help with medication reaction of hypotension. Patient states she felt and remembers nothing.
[2020-10-17] MEDS: dilTIAZem 5 MG/ML SDV 10 MG IV (14:47)
[2020-10-17] MEDS: dilTIAZem 125 MG in SODIUM CHLORIDE 0.9% 100 ML IV (14:48)
--- NOTE | 2020-10-17 16:02 | PC.NURSE ---
setting up pump to start amiodorone bolus. Patient converted to sinus david at 56bpm. No amiodorone started. Provider notified and aware.
[2020-10-17 17:10] LABS: Troponin I 0.171 ng/mL (0.01-0.034)
== END 2020-10-17 18:00 | disposition home or self-care (01) ==
PROVIDERS: Emergency Provider Emergency Medicine; Family Provider Internal Medicine; PCP Internal Medicine
DX: I48.0 Paroxysmal atrial fibrillation (principal); Z79.01 Long term (current) use of anticoagulants
CPT/HCPCS: 36415; 71045; 80053; 82550; 82553; 83690; 84484; 85025; 85610; 85730; 92960; 93005; 99285; J2704

== ENCOUNTER 2020-10-17 20:52 | Emergency (ER) | payer MEDICARE, OTHER, SELFPAY ==
--- NOTE | 2020-10-17 21:09 | DI.RAD.S_ITS ---
PROCEDURE: XR CHEST 1V INDICATIONS: chest pain TECHNIQUE: One view of the chest was acquired. COMPARISON: [facility], CR, XR CHEST 1V, 10/17/2020, 13:51. FINDINGS: Surgical changes and devices: Changes of median sternotomy for CABG. Cervical fusion hardware. Lungs and pleura: Lungs are clear. No pleural effusions or pneumothorax. Mediastinum: Mediastinal contours appear normal. Heart size is normal. Bones and chest wall: No suspicious bony lesions. Overlying soft tissues appear unremarkable. IMPRESSION: No acute cardiopulmonary process demonstrated radiographically. Dictated by: Kaushik New M.D. on 10/17/2020 at 21:47 Approved by: Kaushik New M.D. on 10/17/2020 at 21:47
--- NOTE | 2020-10-17 21:11 | ED_ITS ---
HPI - Chest Pain General Chief Complaint: Chest Pain Stated Complaint: chest pain, neck pain, feels like a heart attack Time Seen by Provider: 10/17/20 21:00 Related Data Home Medications Medication Instructions Recorded Confirmed apixaban [Eliquis] mg 10/17/20 dronedarone [Multaq] mg 10/17/20 metoprolol succinate PO 10/17/20 Allergies Allergy/AdvReac Type Severity Reaction Status Date / Time Penicillins [PENICILLINS] Allergy Unknown Verified 10/17/20 13:50 Sulfa (Sulfonamide Allergy Unknown Verified 10/17/20 13:50 Antibiotics) [SULFA (SULFONAMIDE ANTIBIOTICS)] Patient History Medical History (Updated 10/17/20 @ 15:28 by Tariq Jiménez DO) CAD (coronary artery disease) Neuropathy Spinal stenosis in cervical region Spinal stenosis of lumbar region Surgical History H/O cervical spine surgery History of lumbar surgery Hx of CABG Social History Smoking Status: Current every day smoker Smoking Status: Current every day smoker alcohol intake frequency: 0-2 drinks per day Substance Use Type: marijuana Course Orders Ordered: ED Orders 10/17/20 20:59 EKG-12 Lead Routine 10/17/20 21:08 XR chest 1V Stat Complete Blood Count AUTO DIFF Stat Comprehensive Metabolic Panel Stat Lipase Stat Partial Thromboplastin Time Stat Prothrombin Time INR Stat Troponin & CK Cardiac Panel Stat 10/17/20 21:09 XR chest 1V Stat COVID19 - ADMIT (MOT[employer] PICTURE SET GRIP swab/PCR) Stat Complete Blood Count AUTO DIFF Stat Comprehensive Metabolic Panel Stat Lipase Stat Partial Thromboplastin Time Stat Prothrombin Time INR Stat Troponin & CK Cardiac Panel Stat EKG-12 Lead Stat Sodium Chloride (Normal Saline 0.9%) 1,000 mls @ 150 mls/hr IV CONT LIDIA Discontinued Medications Aspirin (Aspirin 81 Mg Chew Tab) 324 mg PO NOW ONE Stop: 10/17/20 21:10 Discharge Plan Departure Prescriptions: No Action Multaq 400 mg tablet RF: 0 Eliquis 5 mg tablet RF: 0 metoprolol succinate 50 mg tablet extended release 24 hr PO RF: 0 Referrals: Noah Ray MD [Primary Care Provider] -
[2020-10-17 21:24] VITALS: BP 193/91; PULSE 74; RESP 16; TEMP 36.4; O2SAT 96
[2020-10-17 21:33] LABS: Add Manual Diff / Slide Review NO; Basophils Absolute Auto 100 /uL (0-100); Eosinophils Absolute Auto 200 /uL (0-450); Hematocrit 41.9 % (36-46); Lymphocytes Absolute Auto 2700 /uL (1100-4500); Lymphocytes Percent Auto 32.6 % (25-40); Mean Corpuscular HGB Conc 33.4 % (30-36); Mean Corpuscular Hemoglobin 28.5 PG (26-34); Mean Corpuscular Volume 85.4 fL (80-100); Monocytes Absolute Auto 500 /uL (0-900); Monocytes Percent Auto 6.2 % (3-14); Neutrophils Absolute Auto 4900 /uL (1500-7000); Neutrophils Percent Auto 58.2 % (50-75); Platelet Count 214 X10^3/uL (150-400); Red Cell Distribution Width 14.2 % (11.6-14.8); White Blood Cell Count 8.4 X10^3/uL (4.5-11.0)
[2020-10-17 21:42] VITALS: PULSE 60; RESP 21
[2020-10-17 21:42] LABS: Alanine Aminotransferase 28 IU/L (<35); Albumin 4.3 g/dL (3.5-5.0); Albumin Globulin Ratio 1.4 (1.0-2.8); Alkaline Phosphatase 78 U/L (38-126); Aspartate Aminotransferase 35 IU/L (14-36); BUN Creatinine Ratio 15.4 (6-22); Bilirubin Total 0.3 mg/dL (0.2-1.3); Blood Urea Nitrogen 22 mg/dL (7-17); Calcium 9.3 mg/dL (8.4-10.2); Carbon Dioxide 26 mmol/L (22-32); Chloride 103 mmol/L (98-107); Creatine Kinase 207 U/L (30-135); Estimated Glomerular Filt Rate 36.6 mL/min (>60); Globulin 3.1 g/dL (1.7-4.1); Glucose 240 mg/dL (80-110); HEMOLYSIS < 15 (0-50); Lipase 155 U/L (23-300); Potassium 3.2 mmol/L (3.4-5.1); Sodium 138 mmol/L (137-145); Total Protein 7.4 g/dL (6.3-8.2)
--- NOTE | 2020-10-17 21:43 | ED_ITS ---
HPI - Chest Pain General Chief Complaint: Chest Pain Stated Complaint: chest pain, neck pain, feels like a heart attack Time Seen by Provider: 10/17/20 21:00 Source: patient and family Mode of arrival: Ambulatory Limitations: no limitations History of Present Illness HPI narrative: This is a 65-year-old female who comes in with complaint of neck and chest discomfort and pressure as well as shortness of breath that feels like her prior heart attacks. Patient was actually here earlier today in AFib with RVR. She cardioverted and she had chest pain and shortness of breath at that time but it resolved afterwards. It was noted that her troponin was trending up but after discussion with the pharmacy technician program director decision was made to DC home. Patient was home this evening and at 8:30 pm. developed symptoms while in bed. It resolved after approximately an hour. Patient states she has a prior history of 2 vessel CABG, she has had stents placed with a revision at [facility] as well as additional stents placed in September of 2020. She recently has had a change from her metoprolol tartrate to metoprolol succinate after her hospitalization but no additional new changes. She is anticoagulant Eliquis for her atrial fibrillation, she has hypertension, dyslipidemia and diabetes. She also has a history of total hysterectomy, back surgery, neck surgery and Achilles surgery. Patient states today that she became diaphoretic during this. She denies any nausea vomiting she states it was pressure in her neck and radiating to her chest and towards her back. It has since resolved. She denies any new swelling in her extremities. Dr. Valentine is her pharmacy technician program director and Dr. Newton was her pharmacy technician program director at [facility]. Related Data Home Medications Medication Instructions Recorded Confirmed apixaban [Eliquis] mg 10/17/20 dronedarone [Multaq] mg 10/17/20 metoprolol succinate PO 10/17/20 Allergies Allergy/AdvReac Type Severity Reaction Status Date / Time Penicillins [PENICILLINS] Allergy Unknown Verified 10/17/20 13:50 Sulfa (Sulfonamide Allergy Unknown Verified 10/17/20 13:50 Antibiotics) [SULFA (SULFONAMIDE ANTIBIOTICS)] Review of Systems Review of Systems ROS Unobtainable: All systems reviewed & are unremarkable except as noted in HPI and below Patient History Medical History CAD (coronary artery disease) Neuropathy Spinal stenosis in cervical region Spinal stenosis of lumbar region Surgical History H/O cervical spine surgery History of lumbar surgery Hx of CABG Social History Smoking Status: Current every day smoker Smoking Status: Current every day smoker alcohol intake frequency: 0-2 drinks per day Substance Use Type: marijuana Exam Narrative Exam Narrative: GENERAL: Alert and oriented x three, well-nourished female in mild distress. HEENT: Head normocephalic, atraumatic, EOMI, pupils reactive, face symmetric, moist mucous membranes NECK: Supple, full range of motion CARDIOVASCULAR: Regular rate and rhythm without murmurs, rubs or gallops. RESPIRATORY: Breath sounds equal bilaterally, no wheezes rales or rhonchi. ABDOMEN: Soft, nontender. Normoactive bowel sounds all 4 quadrants. No guarding or rebound, rigidity, no mass, no bruit or pulsatile mass. : No CVA tenderness EXTREMITIES: Normal range of motion, no clubbing or edema. Neurovascularly intact NEUROLOGICAL: Cranial nerves II through XII grossly intact. Moving all extremities SKIN: Warm, dry, no petechiae, no rashes or lesions. Initial Vital Signs Initial Vital Signs: Vital Signs Temperature 97.6 F 10/17/20 21:24 Pulse Rate 74 10/17/20 21:24 Respiratory Rate 16 10/17/20 21:24 Blood Pressure 193/91 H 10/17/20 21:24 Pulse Oximetry 96 10/17/20 21:24 Course Orders Ordered: ED Orders 10/17/20 20:59 EKG-12 Lead Routine 10/17/20 21:09 XR chest 1V Stat 10/17/20 21:20 Complete Blood Count AUTO DIFF Stat Comprehensive Metabolic Panel Stat Lipase Stat Partial Thromboplastin Time Stat Prothrombin Time INR Stat Troponin & CK Cardiac Panel Stat 10/17/20 21:25 COVID19 - ADMIT (CLOSING AGENT swab/PCR) Stat Discontinued Medications Aspirin (Aspirin 81 Mg Chew Tab) 324 mg PO NOW ONE Stop: 10/17/20 21:10 Last Admin: 10/17/20 22:02 Dose: 324 mg Documented by: KEVON Heparin Sodium (Porcine) (Heparin 5,000 Unit/Ml Vial) 5,000 unit IV NOW ONE Stop: 10/17/20 22:05 Last Admin: 10/17/20 22:24 Dose: 5,000 unit Documented by: KEVON Sodium Chloride (Normal Saline 0.9%) 1,000 mls @ 150 mls/hr IV CONT LIDIA Last Infusion: 10/17/20 23:25 Dose: 0 mls/hr Documented by: Admin: 10/17/20 22:02 Dose: 150 mls/hr Documented by: KEVON Heparin Sodium/Dextrose (Heparin Drip) 25,000 unit in 500 mls @ 26.127 mls/hr IV CONT LIDIA; Protocol Last Infusion: 10/17/20 23:24 Dose: 0 units/kg/hr, 0 mls/hr Documented by: Admin: 10/17/20 22:26 Dose: 9.19 units/kg/hr, 20 mls/hr Documented by: KEVON Potassium Chloride (Potassium Chloride 20 Meq/15 Ml Udc) 40 meq PO NOW ONE Stop: 10/17/20 21:46 Last Admin: 10/17/20 22:04 Dose: 40 meq Documented by: KEVON Consultations Consultation #1: Dr. Wheeler, recommend keeping the patient. He does not feel patient needs transfer to [facility] at this time. Time: 22:20 Consultation #2: Dr. Omer, hospitalist at [facility] accepts for transfer. Vital Signs Vital signs: Vital Signs - 8 hr 10/17/20 21:24 10/17/20 21:42 10/17/20 22:00 Temperature 97.6 F Pulse Rate 74 60 60 Respiratory Rate 16 21 22 Blood Pressure 193/91 H Pulse Oximetry 96 10/17/20 22:30 10/17/20 22:33 10/17/20 23:00 Temperature Pulse Rate 58 L 56 L 54 L Respiratory Rate 26 H 35 H 38 H Blood Pressure 126/61 123/58 L Pulse Oximetry 97 97 94 MDM - Chest Pain Lab Data Attestation: I reviewed the patient's lab results. Result diagrams: 10/17/20 21:20 10/17/20 21:20 Labs: Lab Results 10/17/20 10/17/20 10/17/20 Range/Units 21:20 21:20 21:20 WBC 8.4 (4.5-11.0) X10^3/uL RBC 4.90 (4.0-5.2) X10^6/uL Hgb 14.0 (12.0-16.0) g/dL Hct 41.9 (36-46) % MCV 85.4 (80-100) fL MCH 28.5 (26-34) PG MCHC 33.4 (30-36) % RDW 14.2 (11.6-14.8) % Plt Count 214 (150-400) X10^3/uL Neut % (Auto) 58.2 (50-75) % Lymph % (Auto) 32.6 (25-40) % [place] % (Auto) 6.2 (3-14) % Eos % (Auto) 2.0 (2-4) % Baso % (Auto) 1.0 (0-2) % Neut # (Auto) 4900 (3542-0896) /uL Lymph # (Auto) 2700 (3623-1993) /uL [place] # (Auto) 500 (0-900) /uL Eos # (Auto) 200 (0-450) /uL Baso # (Auto) 100 (0-100) /uL PT 16.7 H (10.1-12.7) SECONDS INR 1.5 H (0.9-1.3) APTT 34 (26.4-36.2) SECONDS Sodium 138 (137-145) mmol/L Potassium 3.2 L (3.4-5.1) mmol/L Chloride 103 (98-107) mmol/L Carbon Dioxide 26 (22-32) mmol/L BUN 22 H (7-17) mg/dL Creatinine 1.43 H (0.52-1.04) mg/dL Estimated GFR 36.6 L (>60) mL/min BUN/Creatinine Ratio 15.4 (6-22) Glucose 240 H D (80-110) mg/dL Calcium 9.3 (8.4-10.2) mg/dL Total Bilirubin 0.3 (0.2-1.3) mg/dL AST 35 (14-36) IU/L ALT 28 (<35) IU/L Alkaline Phosphatase 78 (38-126) U/L Total Creatine Kinase 207 H (30-135) U/L CK-MB (CK-2) 4.12 H D (<2.37) ng/mL CK-MB (CK-2) Rel Index 2.0 (1.5-5.0) % Troponin I 0.503 H* (0.01-0.034) ng/mL Total Protein 7.4 (6.3-8.2) g/dL Albumin 4.3 (3.5-5.0) g/dL Globulin 3.1 (1.7-4.1) g/dL Albumin/Globulin Ratio 1.4 (1.0-2.8) Lipase 155 (23-300) U/L SARS-CoV-2 (PCR) (Negative) 10/17/20 Range/Units 21:25 WBC (4.5-11.0) X10^3/uL RBC (4.0-5.2) X10^6/uL Hgb (12.0-16.0) g/dL Hct (36-46) % MCV (80-100) fL MCH (26-34) PG MCHC (30-36) % RDW (11.6-14.8) % Plt Count (150-400) X10^3/uL Neut % (Auto) (50-75) % Lymph % (Auto) (25-40) % [place] % (Auto) (3-14) % Eos % (Auto) (2-4) % Baso % (Auto) (0-2) % Neut # (Auto) (7083-5798) /uL Lymph # (Auto) (8761-7398) /uL [place] # (Auto) (0-900) /uL Eos # (Auto) (0-450) /uL Baso # (Auto) (0-100) /uL PT (10.1-12.7) SECONDS INR (0.9-1.3) APTT (26.4-36.2) SECONDS Sodium (137-145) mmol/L Potassium (3.4-5.1) mmol/L Chloride (98-107) mmol/L Carbon Dioxide (22-32) mmol/L BUN (7-17) mg/dL Creatinine (0.52-1.04) mg/dL Estimated GFR (>60) mL/min BUN/Creatinine Ratio (6-22) Glucose (80-110) mg/dL Calcium (8.4-10.2) mg/dL Total Bilirubin (0.2-1.3) mg/dL AST (14-36) IU/L ALT (<35) IU/L Alkaline Phosphatase (38-126) U/L Total Creatine Kinase (30-135) U/L CK-MB (CK-2) (<2.37) ng/mL CK-MB (CK-2) Rel Index (1.5-5.0) % Troponin I (0.01-0.034) ng/mL Total Protein (6.3-8.2) g/dL Albumin (3.5-5.0) g/dL Globulin (1.7-4.1) g/dL Albumin/Globulin Ratio (1.0-2.8) Lipase (23-300) U/L SARS-CoV-2 (PCR) Negative (Negative) Urine Dip Bedside Urine Glucose 1000 mg/dl Bedside Urine Bilirubin - Negative Bedside Urine Ketone - Negative Urine Specific [place] 1.020 Bedside Urine Occult Blood - Negative Bedside Urine pH 5.5 Bedside Urine Protein - Negative Bedside Urine Urobilinogen - Negative Bedside Urine Nitrite - Negative Bedside Urine Leukocytes - Negative Esterase Imaging Data Chest x-ray: Radiologist's Impression: [address] [id number] ReportSigned Patient: Luz Mireles RMR#: [id number]: 3Acct:[id number]/Sex: 65 / FDate of Service: 10/17/20Loc: EDAccession Number: [id number] Procedure: XR chest 1V Ordering Provider: Tariq Jiménez D.O. PROCEDURE: XR CHEST 1V INDICATIONS: chest pain TECHNIQUE: One view of the chest was acquired. COMPARISON: [facility], , XR CHEST 1V, 10/17/2020, 13:51. FINDINGS: Surgical changes and devices: Changes of median sternotomy for CABG. Cervical fusion hardware. Lungs and pleura: Lungs are clear. No pleural effusions or pneumothorax. Mediastinum: Mediastinal contours appear normal. Heart size is normal. Bones and chest wall: No suspicious bony lesions. Overlying soft tissues appear unremarkable. IMPRESSION: No acute cardiopulmonary process demonstrated radiographically. Dictated by: Kaushik New M.D. on 10/17/2020 at 21:47 Approved by: Kaushik New M.D. on 10/17/2020 at 21:47 ECG Data Attestation: I personally reviewed and interpreted this ECG as follows: Prior ECG tracings: available for review Interpretation: Patient has sinus rhythm with a rate of 68 P are 180 QRS of 100 and QTC of 455. Patient has ST depression 1 2 and aVL. Elevation not appreciated but patient does have appears to be some depressive changes in V2, V3 not appreciated much to the other lateral leads. Patient had an EKG earlier today at 4:00 p.m. which showed sinus bradycardia the P are 190 QRS of 92 and QTC of 479. She had changes in possibly 1 but flattening in aVL the depression was not appreciated in V2 or V3. MDM Narrative Medical decision making narrative: This is a 65-year-old female with known cardiac disease with coronary stents, 2 vessel CABG and revision of her stents at [facility] in July. Patient was seen earlier today for AFib with RVR, she return to a normal rhythm. Her troponin repeat head elevated. They suspected this was demand ischemia. Patient did have chest pain and shortness of breath while having rapid ventricular rate but it resolved after she return to a normal rate. Patient is chronically anticoagulated on Eliquis. She developed a 2nd episode of chest/neck pressure at home at approximately 8:30 a.m. this evening which resolved after an hour. Patient has continued to be chest pain-free but appears to have new ST segment depression on her EKG from earlier today and passed EKGs and continues to have a troponin that is trending upwards. Her potassium and renal function had slight ulcerations and potassium was replaced. Patient was given aspirin 324 mg in the department, heparin drip was started. Cardiology consultation with Dr. Wheeler was discussed he did not feel patient needed transfer to [facility] and is happy to consult with the patient at [facility]. Dr. Omer accepts for transfer. Discharge Plan Departure Patient Disposition: [facility] Clinical Impression: Non-ST elevation MD (NSTEMI) Prescriptions: No Action Multaq 400 mg tablet RF: 0 Eliquis 5 mg tablet RF: 0 metoprolol succinate 50 mg tablet extended release 24 hr PO RF: 0 Referrals: Noah Ray MD [Primary Care Provider] -
[2020-10-17 21:49] LABS: INR 1.5 (0.9-1.3); Prothrombin Time 16.7 SECONDS (10.1-12.7)
[2020-10-17 21:51] LABS: PTT Partial Thromboplastin Tim 34 SECONDS (26.4-36.2)
[2020-10-17 21:58] LABS: Creatine Kinase MB 4.12 ng/mL (<2.37)
[2020-10-17 22:00] VITALS: PULSE 60; RESP 22
[2020-10-17 22:01] LABS: Troponin I 0.503 ng/mL (0.01-0.034)
[2020-10-17] MEDS: SODIUM CHLORIDE 0.9% 1,000 ML 150 ML IV (22:02)
[2020-10-17] MEDS: ASPIRIN 81 MG CHEW TAB 324 MG PO (22:02)
[2020-10-17] MEDS: POTASSIUM CHLORIDE 20 MEQ/15 ML UDC 40 MEQ PO (22:04)
[2020-10-17] MEDS: HEPARIN 5,000 UNIT/ML VIAL 5000 UNIT IV (22:24)
[2020-10-17] MEDS: HEPARIN DRIP 25,000 UNIT/500 ML IV.SOLN 20 UNIT IV (22:26)
[2020-10-17 22:27] LABS: COVID19 - ADMIT (NP swab/PCR) Negative (Negative)
[2020-10-17 22:30] VITALS: PULSE 58; RESP 26; O2SAT 97
--- NOTE | 2020-10-17 22:32 | PC.NURSE ---
Double checked heparin drip with STEPHANIE Bautista
[2020-10-17 22:33] VITALS: BP 126/61; PULSE 56; RESP 35; O2SAT 97
[2020-10-17 23:00] VITALS: BP 123/58; PULSE 54; RESP 38; O2SAT 94
--- NOTE | 2020-10-17 23:25 | PC.NURSE ---
Heparin continues en route maintained by [facility]
== END 2020-10-17 23:39 | disposition short-term general hospital (02) ==
PROVIDERS: Emergency Medicine; Emergency Provider Emergency Medicine; Family Provider Internal Medicine; PCP Internal Medicine
DX: I21.4 Non-ST elevation (NSTEMI) myocardial infarction (principal); I48.0 Paroxysmal atrial fibrillation; Z79.01 Long term (current) use of anticoagulants; Z95.1 Presence of aortocoronary bypass graft; Z20.822 Contact with and (suspected) exposure to COVID-19
CPT/HCPCS: 36415; 71045; 80053; 81003; 82550; 82553; 83690; 84484; 85025; 85610; 85730; 87635; 92960; 93005; 96361; 96365; 96367; 99284; 99285; C9803; J1644; J2704

== ENCOUNTER → 2020-11-04 06:45 | Outpatient (CLI) | payer MEDICARE, OTHER, SELFPAY ==
[2020-11-04 08:47] LABS: HEMOLYSIS < 15 (0-50); Potassium 3.5 mmol/L (3.4-5.1)
[2020-11-04 08:48] LABS: BUN Creatinine Ratio 18.2 (6-22); Blood Urea Nitrogen 20 mg/dL (7-17); Calcium 9.7 mg/dL (8.4-10.2); Carbon Dioxide 26 mmol/L (22-32); Chloride 103 mmol/L (98-107); Estimated Glomerular Filt Rate 49.5 mL/min (>60); Glucose 139 mg/dL (80-110); Sodium 139 mmol/L (137-145)
== END ==
PROVIDERS: Family Provider Internal Medicine; PCP Internal Medicine; Referring Provider Physician Assistant; Visit Provider Physician Assistant
DX: I25.10 Atherosclerotic heart disease of native coronary artery without angina pectoris (principal); N28.9 Disorder of kidney and ureter, unspecified
CPT/HCPCS: 36415; 80048

== ENCOUNTER → 2020-11-16 07:37 | Outpatient (CLI) | payer MEDICARE, OTHER, SELFPAY ==
[2020-11-16 09:33] LABS: BUN Creatinine Ratio 23.9 (6-22); Blood Urea Nitrogen 22 mg/dL (7-17); Calcium 8.9 mg/dL (8.4-10.2); Carbon Dioxide 26 mmol/L (22-32); Chloride 105 mmol/L (98-107); Estimated Glomerular Filt Rate > 60.0 mL/min (>60); Glucose 136 mg/dL (80-110); HEMOLYSIS < 15 (0-50); Potassium 3.8 mmol/L (3.4-5.1); Sodium 141 mmol/L (137-145)
== END ==
PROVIDERS: Family Provider Internal Medicine; PCP Internal Medicine; Referring Provider Physician Assistant; Visit Provider Physician Assistant
DX: N28.9 Disorder of kidney and ureter, unspecified (principal)
CPT/HCPCS: 36415; 80048

== ENCOUNTER → 2021-03-16 07:08 | Outpatient (CLI) | payer MEDICARE, OTHER, SELFPAY ==
[2021-03-16 08:24] LABS: BUN Creatinine Ratio 10.9 (6-22); Blood Urea Nitrogen 13 mg/dL (7-17); Calcium 9.3 mg/dL (8.4-10.2); Carbon Dioxide 29 mmol/L (22-32); Chloride 104 mmol/L (98-107); Estimated Glomerular Filt Rate 45.1 mL/min (>60); Glucose 123 mg/dL (80-110); HEMOLYSIS < 15 (0-50); Potassium 4.9 mmol/L (3.4-5.1); Sodium 140 mmol/L (137-145)
== END ==
PROVIDERS: Family Provider Internal Medicine; PCP Internal Medicine; Referring Provider Internal Medicine; Visit Provider Internal Medicine
DX: I21.4 Non-ST elevation (NSTEMI) myocardial infarction (principal)
CPT/HCPCS: 36415; 80048

== ENCOUNTER 2021-03-22 09:17 | Inpatient (IN) | payer MEDICARE, OTHER, SELFPAY ==
[2021-03-22] VITALS (9 sets, daily range): BP systolic 98–133; BP diastolic 46–113; PULSE 56–74; RESP 16–18; TEMP 35.7–37.5; O2SAT 95–100; BMI 34.7
--- NOTE | 2021-03-22 09:33 | DI.RAD.S_ITS ---
PROCEDURE: XR FOOT RT MIN 3V INDICATIONS: pain/swelling TECHNIQUE: Three views of the foot were acquired. COMPARISON: [facility], CR, XR FOOT RT MIN 3V, 01/10/2018, 15:13. FINDINGS: Bones: No acute fractures or dislocations. No suspicious bony lesions. Postsurgical changes are seen at the posterior calcaneus. Posterior calcaneal enthesophytes are present. Degenerative changes are seen at the 1st metatarsophalangeal joint and throughout the interphalangeal joints of the toes. Soft tissues: Soft tissue edema is seen throughout the forefoot. IMPRESSION: No acute osseous abnormality. If clinical suspicion and/or symptoms persist, additional imaging with repeat plain films, or advanced imaging (e.g. CT, MRI) may be helpful for further assessment. Dictated by: Alvin Banks M.D. on 03/22/2021 at 9:53 Approved by: Alvin Banks M.D. on 03/22/2021 at 9:55
--- NOTE | 2021-03-22 09:36 | ED_ITS ---
HPI - Wound/Laceration General Chief Complaint: Wound/Laceration Stated Complaint: Inflammation on RT Foot, Causing sickness Time Seen by Provider: 03/22/21 09:28 Source: patient Mode of arrival: Wheelchair Limitations: no limitations History of Present Illness HPI narrative: Patient complains of right foot pain and swelling for the past 1 week. Noticed blood on the floor 1 week ago. Patient has no recall of any injury to the foot. Patient has diabetic neuropathy of the feet. She could have injured it somehow. There is a puncture wound at the forefoot plantar side. Without active drainage. There is extensive swelling erythema edema at the forefoot and dorsum of the foot. No prior history diabetic foot ulcers or infections. Patient was placed on doxycycline for this by provider.. Related Data Home Medications Medication Instructions Recorded Confirmed apixaban 5 mg tablet (Eliquis) 5 mg PO DAILY 10/17/20 03/22/21 dronedarone 400 mg tablet (Multaq) 400 mg PO DAILY 10/17/20 03/22/21 metoprolol succinate 50 mg 50 mg PO DAILY 10/17/20 03/22/21 tablet,extended release 24 hr (Toprol XL) Allergies Allergy/AdvReac Type Severity Reaction Status Date / Time Penicillins [PENICILLINS] Allergy Severe Hives Verified 03/22/21 13:52 Sulfa (Sulfonamide Allergy Severe Hives Verified 03/22/21 13:51 Antibiotics) [SULFA (SULFONAMIDE ANTIBIOTICS)] Review of Systems Review of Systems Narrative: GENERAL: Denies chills, fatigue, malaise, fever, sweats. HEENT: Denies sinus pain, ear pain, sore throat RESPIRATORY: Denies dyspnea, cough CARDIOVASCULAR: Denies chest pain, palpitations GASTROINTESTINAL: Denies nausea, vomiting, abdominal pain : Denies dysuria, frequency, hematuria MUSCULOSKELETAL: denies muscle or bony pain SKIN: Denies rash, skin lesions, complaints cellulitis/skin discharge NEUROLOGIC: Denies weakness, numbness ROS Unobtainable: All systems reviewed & are unremarkable except as noted in HPI and below Patient History Medical History CAD (coronary artery disease) Diabetes Hyperlipidemia (06/11/14) Neuropathy Obstructive sleep apnea (08/13/17) Paroxysmal atrial fibrillation (08/13/17) Peripheral vascular disease (05/31/17) Spinal stenosis in cervical region Spinal stenosis of lumbar region Surgical History H/O carotid endarterectomy H/O cervical spine surgery History of lumbar surgery Hx of CABG Social History household members: spouse Smoking Status: Current every day smoker Smoking Status: Current every day smoker alcohol intake frequency: holidays/special occasions only Substance Use Type: marijuana Exam Narrative Exam Narrative: GENERAL: in no distress, not toxic not dyspneic HEAD: Normocephalic. EXTREMITIES: No gross deformities. Examination right foot. Ankle nontender. There is a small puncture wound at the mid forefoot with pus drainage. Nontender to touch of the foot due to neuropathy. There is extensive edema of the forefoot. On the dorsum there is elliptical erythema edema induration. No red streaking proximally. There is blistering at the MTP surface of the 2nd and 3rd area dorsally. No crepitus. BACK: No flank tenderness. NEURO: AOx4. SKIN: Warm and dry PSYCH: Not anxious, is cooperative Initial Vital Signs Initial Vital Signs: Vital Signs Temperature 98.4 F 03/22/21 09:21 Pulse Rate 74 03/22/21 09:21 Respiratory Rate 16 03/22/21 09:21 Blood Pressure 113/52 L 03/22/21 09:21 Pulse Oximetry 98 03/22/21 09:21 Course Course Course Narrative: No new issues during course of stay. Order placed for pharmacy dosing for vancomycin Decision to Admit Date: 03/22/21 Decision to Admit time: 10:09 Orders Ordered: ED Orders 03/22/21 09:33 XR foot RT min 3V Stat 03/22/21 09:34 Wound Culture and Gram Stain Stat 03/22/21 09:50 COVID19 - ADMIT (MRI SPECIALIST swab/PCR) Stat Complete Blood Count AUTO DIFF Stat Comprehensive Metabolic Panel Stat Lactate (Lactic Acid) Stat Procalcitonin Stat Prothrombin Time INR Stat 03/22/21 10:19 Blood Culture Stat 03/22/21 11:02 MR foot RT wo/w con Stat 03/25/21 10:30 Vancomycin Trough Urgent Acetaminophen (Acetaminophen 325 Mg Tablet) 650 mg PO Q6HR PRN PRN Reason: Fever/Mild Pain (1-3) Amlodipine Besylate (Amlodipine 5 Mg Tablet) 5 mg PO DAILY [facility] Apixaban (Apixaban 5 Mg Tablet) 5 mg PO BID [facility] Atorvastatin Calcium (Atorvastatin 20 Mg Tablet) 80 mg PO BEDTIME [facility] Clopidogrel Bisulfate (Clopidogrel 75 Mg Tablet) 75 mg PO DAILY [facility] Dronedarone (Dronedarone 400 Mg Tablet) 400 mg PO BIDWM [facility] Enoxaparin Sodium (Enoxaparin 40 Mg/0.4 Ml Syringe) 40 mg SUBCUT DAILY [facility] Vancomycin HCl (Vancomycin) 1,000 mg in 200 mls @ 200 mls/hr IV Q24H [facility] Last Infusion: 03/22/21 11:29 Dose: 0 mls/hr Documented by: Admin: 03/22/21 11:16 Dose: 200 mls/hr Documented by: FARSHAD Lactated Ringer's (Lactated Ringers) 1,000 mls @ 100 mls/hr IV CONT [facility] Last Admin: 03/22/21 14:12 Dose: 100 mls/hr Documented by: BRANDON Insulin Human Lispro (Insulin Lispro 100 Unit/Ml 3ml Vial) 0 unit SUBCUT ACHS [facility]; Protocol Last Admin: 03/22/21 18:14 Dose: Not Given Documented by: SHEILA Magnesium Hydroxide (Magnesium Hydroxide 30 Ml Udc) 30 ml PO DAILY PRN PRN Reason: Constipation Metoprolol Succinate (Metoprolol Er 50 Mg Tablet) 50 mg PO DAILY [facility] Naloxone HCl (Naloxone 0.4 Mg/Ml Vial) 0.2 mg IV Q2MIN PRN PRN Reason: Opiate Reversal Ondansetron HCl (Ondansetron 4 Mg/2 Ml Inj) 4 mg IV Q8HR PRN PRN Reason: Nausea And Vomiting Pregabalin (Pregabalin 50 Mg Capsule) 200 mg PO TID [facility] Vancomycin HCl (Vancomycin Trough) 1 request [facility] [address] [facility] Stop: 03/25/21 10:31 Discontinued Medications Diphtheria/Tetanus/Acell Pertussis (Tet,Diph,Pertuss(Acell),Vac/Pf 0.5 Ml Syringe) 0.5 ml IM .ONCE ONE Stop: 03/22/21 09:34 Last Admin: 03/22/21 09:43 Dose: 0.5 ml Documented by: FARSHAD Dronedarone (Dronedarone 400 Mg Tablet) 400 mg PO NOW ONE Stop: 03/22/21 17:52 Vancomycin HCl (Vancomycin Per Pharmacy) 1 request MISC NOW ONE Stop: 03/22/21 09:40 Last Admin: 03/22/21 11:04 Dose: Not Given Documented by: HONEYOTEM Vancomycin HCl (Vancomycin Per Pharmacy) 1 request MISC NOW ONE Stop: 03/22/21 12:41 Reevaluation(s) Reevaluation #1: Reviewed results with patient. They were expecting admission and agree with admit. Time: 11:04 Consultations Consultation #1: Spoke with orthopedics. Dr. Rodriguez, he will see patient. Need to order MRI of the foot here. Without contrast. Time: 11:03 Consultation #2: s/w dr rios, will admit Time: 11:08 Vital Signs Vital signs: Vital Signs - 8 hr 03/22/21 09:21 Temperature 98.4 F Pulse Rate 74 Respiratory Rate 16 Blood Pressure 113/52 L Pulse Oximetry 98 MDM - Wound/Laceration Differential Diagnosis Differential diagnosis: Likely laceration, abscess and other (C ellulitis/osteomyelitis) Lab Data Result diagrams: 03/22/21 09:50 03/22/21 09:50 Labs: Lab Results 03/22/21 03/22/21 03/22/21 Range/Units 09:50 09:50 09:50 WBC 13.2 H (4.5-11.0) X10^3/uL RBC 4.42 (4.0-5.2) X10^6/uL Hgb 12.9 (12.0-16.0) g/dL Hct 38.3 (36-46) % MCV 86.6 (80-100) fL MCH 29.2 (26-34) PG MCHC 33.7 (30-36) % RDW 14.2 (11.6-14.8) % Plt Count 277 (150-400) X10^3/uL Neut % (Auto) 83.2 H (50-75) % Lymph % (Auto) 6.6 L (25-40) % [place] % (Auto) 8.7 (3-14) % Eos % (Auto) 0.7 L (2-4) % Baso % (Auto) 0.8 (0-2) % Neut # (Auto) 17613 H (6185-4579) /uL Lymph # (Auto) 900 L (0297-6021) /uL [place] # (Auto) 1200 H (0-900) /uL Eos # (Auto) 100 (0-450) /uL Baso # (Auto) 100 (0-100) /uL PT 21.9 H (10.1-12.7) SECONDS INR 1.9 H (0.9-1.3) Sodium 134 L (137-145) mmol/L Potassium 3.4 D (3.4-5.1) mmol/L Chloride 101 (98-107) mmol/L Carbon Dioxide 23 (22-32) mmol/L BUN 18 H (7-17) mg/dL Creatinine 1.96 H (0.52-1.04) mg/dL Estimated GFR 25.4 L (>60) mL/min BUN/Creatinine Ratio 9.2 (6-22) Glucose 150 H (80-110) mg/dL Lactate (0.7-2.1) mmol/L Calcium 8.9 (8.4-10.2) mg/dL Total Bilirubin 1.4 H (0.2-1.3) mg/dL AST 486 H (14-36) IU/L ALT 401 H (<35) IU/L Alkaline Phosphatase 206 H (38-126) U/L Total Protein 7.6 (6.3-8.2) g/dL Albumin 3.8 (3.5-5.0) g/dL Globulin 3.8 (1.7-4.1) g/dL Albumin/Globulin Ratio 1.0 (1.0-2.8) Procalcitonin 0.35 (<0.5) ng/mL SARS-CoV-2 (PCR) (Negative) 03/22/21 03/22/21 Range/Units 09:50 09:50 WBC (4.5-11.0) X10^3/uL RBC (4.0-5.2) X10^6/uL Hgb (12.0-16.0) g/dL Hct (36-46) % MCV (80-100) fL MCH (26-34) PG MCHC (30-36) % RDW (11.6-14.8) % Plt Count (150-400) X10^3/uL Neut % (Auto) (50-75) % Lymph % (Auto) (25-40) % [place] % (Auto) (3-14) % Eos % (Auto) (2-4) % Baso % (Auto) (0-2) % Neut # (Auto) (5656-1058) /uL Lymph # (Auto) (5602-5295) /uL [place] # (Auto) (0-900) /uL Eos # (Auto) (0-450) /uL Baso # (Auto) (0-100) /uL PT (10.1-12.7) SECONDS INR (0.9-1.3) Sodium (137-145) mmol/L Potassium (3.4-5.1) mmol/L Chloride (98-107) mmol/L Carbon Dioxide (22-32) mmol/L BUN (7-17) mg/dL Creatinine (0.52-1.04) mg/dL Estimated GFR (>60) mL/min BUN/Creatinine Ratio (6-22) Glucose (80-110) mg/dL Lactate 2.2 H (0.7-2.1) mmol/L Calcium (8.4-10.2) mg/dL Total Bilirubin (0.2-1.3) mg/dL AST (14-36) IU/L ALT (<35) IU/L Alkaline Phosphatase (38-126) U/L Total Protein (6.3-8.2) g/dL Albumin (3.5-5.0) g/dL Globulin (1.7-4.1) g/dL Albumin/Globulin Ratio (1.0-2.8) Procalcitonin (<0.5) ng/mL SARS-CoV-2 (PCR) Negative (Negative) Imaging Data Extremity x-ray #1: Radiologist's Impression: [address] [id number] ReportSigned Patient: Luz Mireles RMR#: [id number]: 3Acct:[id number]/Sex: 66 / FDate of Service: 03/22/21Loc: EDAccession Number: [id number] Procedure: XR foot RT min 3V Ordering Provider: Benjie Arshad MD PROCEDURE: XR FOOT RT MIN 3V INDICATIONS: pain/swelling TECHNIQUE: Three views of the foot were acquired. COMPARISON: [facility], CR, XR FOOT RT MIN 3V, 01/10/2018, 15:13. FINDINGS: Bones: No acute fractures or dislocations. No suspicious bony lesions. Postsurgical changes are seen at the posterior calcaneus. Posterior calcaneal enthesophytes are present. Degenerative changes are seen at the 1st metatarsophalangeal joint and throughout the interphalangeal joints of the toes. Soft tissues: Soft tissue edema is seen throughout the forefoot. IMPRESSION: No acute osseous abnormality. If clinical suspicion and/or symptoms persist, additional imaging with repeat plain films, or advanced imaging (e.g. CT, MRI) may be helpful for further assessment. Dictated by: Alvin Banks M.D. on 03/22/2021 at 9:53 Approved by: Alvin Banks M.D. on 03/22/2021 at 9:55 MDM Narrative Medical decision making narrative: Appropriate for admission for antibiotics and Orthopedics/Podiatry consult. Discharge Plan Departure Patient Disposition: Admitted as Observation Clinical Impression: Diabetic infection of right foot Admit Date/Time: 03/22/21 11:16 Admit Provider: Corbin Rios
--- NOTE | 2021-03-22 09:38 | PC.NURSE ---
Pt has neuropathy. decreased cap refill. some sensation of toes,but normal for patient. found dorsal pulse via doppler.
[2021-03-22] MEDS: TET,DIPH,PERTUSS(ACELL),VAC/PF 0.5 ML SYRINGE IM (09:43)
[2021-03-22 10:16] LABS: Add Manual Diff / Slide Review NO; Basophils Absolute Auto 100 /uL (0-100); Basophils Percent Auto 0.8 % (0-2); Eosinophils Absolute Auto 100 /uL (0-450); Eosinophils Percent Auto 0.7 % (2-4); Hematocrit 38.3 % (36-46); Hemoglobin 12.9 g/dL (12.0-16.0); Lymphocytes Absolute Auto 900 /uL (1100-4500); Lymphocytes Percent Auto 6.6 % (25-40); Mean Corpuscular HGB Conc 33.7 % (30-36); Mean Corpuscular Hemoglobin 29.2 PG (26-34); Mean Corpuscular Volume 86.6 fL (80-100); Monocytes Absolute Auto 1200 /uL (0-900); Monocytes Percent Auto 8.7 % (3-14); Neutrophils Absolute Auto 11000 /uL (1500-7000); Neutrophils Percent Auto 83.2 % (50-75); Platelet Count 277 X10^3/uL (150-400); Red Blood Cell Count 4.42 X10^6/uL (4.0-5.2); Red Cell Distribution Width 14.2 % (11.6-14.8); White Blood Cell Count 13.2 X10^3/uL (4.5-11.0)
[2021-03-22 10:23] LABS: Lactate (Lactic Acid) 2.2 mmol/L (0.7-2.1)
[2021-03-22 10:27] LABS: Alanine Aminotransferase 401 IU/L (<35); Albumin 3.8 g/dL (3.5-5.0); Alkaline Phosphatase 206 U/L (38-126); Aspartate Aminotransferase 486 IU/L (14-36); BUN Creatinine Ratio 9.2 (6-22); Bilirubin Total 1.4 mg/dL (0.2-1.3); Blood Urea Nitrogen 18 mg/dL (7-17); Calcium 8.9 mg/dL (8.4-10.2); Carbon Dioxide 23 mmol/L (22-32); Chloride 101 mmol/L (98-107); Estimated Glomerular Filt Rate 25.4 mL/min (>60); Globulin 3.8 g/dL (1.7-4.1); Glucose 150 mg/dL (80-110); HEMOLYSIS < 15 (0-50); Potassium 3.4 mmol/L (3.4-5.1); Sodium 134 mmol/L (137-145); Total Protein 7.6 g/dL (6.3-8.2)
[2021-03-22 10:44] LABS: Procalcitonin 0.35 ng/mL (<0.5)
[2021-03-22 10:51] LABS: INR 1.9 (0.9-1.3); Prothrombin Time 21.9 SECONDS (10.1-12.7)
--- NOTE | 2021-03-22 11:02 | DI.MRI.S_ITS ---
PROCEDURE: MR FOOT RT WO/W CON INDICATIONS: pain/swelling TECHNIQUE: Noncontrast sagittal T1 spin echo and T2 fast spin echo with fat saturation, long-axis T1 spin echo and T2 fast spin echo with fat saturation; short-axis T1 spin echo, proton density fast spin echo, and T2 fast spin echo with fat saturation through the forefoot. Post-contrast short axis, long axis, and sagittal T1 spin echo with fat saturation through the forefoot. COMPARISON: [facility], CR, XR FOOT RT MIN 3V, 03/22/2021, 9:36. FINDINGS: Image quality: Images are mildly degraded secondary to patient motion. Diagnostic information is obtained. Bones and joints: Very mild edema and enhancement are seen in the 2nd proximal phalanx adjacent to the area of edema with T1 signal that is still hyperintense to muscle. Findings are nonspecific and may be reactive versus secondary to osteomyelitis. The sesamoid bones appear in expected positions, without internal edema. Scattered degenerative changes are seen at the interphalangeal joints of the toes. No intraosseous lesions. Soft tissues: Focal skin irregularity is seen at the plantar aspect of the foot between the 1st and 2nd toes, most likely representing a soft tissue ulcer. Adjacent subcutaneous edema is seen extending dorsally medial to the second metatarsophalangeal joint into the dorsal subcutaneous tissues. No definite abscess formation is seen. Edema and enhancement are seen at the dorsum of the foot and the included ankle. There is grade 2 fatty infiltration diffusely throughout the intrinsic foot musculature with mild associated edema, compatible with chronic denervation changes. Visualized flexor and extensor tendons appear intact, without tenosynovitis. The distal insertions of the peroneus brevis and longus tendons appear intact. The principal Lisfranc ligament appears intact. Sagittal images demonstrate no evidence for plantar plate tears. IMPRESSION: 1. Focal skin irregularity at the plantar aspect of the forefoot between the 1st and 2nd toes with adjacent subcutaneous edema extending dorsally along the medial aspect of the 2nd toe, possibly representing a skin ulcer without a focal abscess. Additional nonspecific edema is seen in the dorsal aspect of the foot. 2. Mild edema and enhancement of the 2nd proximal phalanx with minimally decreased signal on T1-weighted images, which is nonspecific and may be reactive although osteomyelitis cannot be entirely excluded. 3. Diffuse fatty infiltration edema of the intrinsic foot musculature is most likely secondary to chronic denervation changes. Dictated by: Alvin Banks M.D. on 03/22/2021 at 13:12 Approved by: Alvin Banks M.D. on 03/22/2021 at 13:25
[2021-03-22 11:04] LABS: COVID19 - ADMIT (NP swab/PCR) Negative (Negative)
[2021-03-22] MEDS: VANCOMYCIN 1,000 MG/200 ML PIGGYBACK 200 MG IV (11:16)
[2021-03-22 12:02] LABS: Reflexed Lactate in 2 Hours Y
--- NOTE | 2021-03-22 12:50 | DI.US.S_ITS ---
PROCEDURE: US ABDOMEN COMPLETE INDICATIONS: ELEVATED LIVER FUNCTION TESTS AND ACUTE KIDNEY INJURY TECHNIQUE: Real-time scanning was performed of the abdominal and retroperitoneal organs, with image documentation. COMPARISON: [facility], MR, MR ANGIO ABDOMEN, 09/02/2020, 9:16. [facility], US, ABDOMEN COMPLETE, 12/19/2011, 13:41. FINDINGS: Liver: Normal size. Increased in echogenicity. Limited visualization. Gallbladder: Distended. No stones or sludge. Normal gallbladder wall thickness. No pericholecystic fluid. Negative sonographic Reynolds's sign. Biliary ducts: Intrahepatic bile ducts are non-dilated. Extrahepatic bile duct caliber measures 9 mm. Normal is 6-7 mm or less in diameter, or 10 mm or less post-cholecystectomy. Pancreas: Visualized portions of the pancreas are sonographically normal. Body and tail are not well seen. Spleen: Spleen is normal in size and homogeneous in echotexture. Kidneys: Kidneys are normal in size and echotexture. Right kidney measures 10.1 cm long; left kidney measures 10.7 cm long. No hydronephrosis or nephrolithiasis. No solid masses. Aorta: Visualized distal aorta is normal in caliber at less than 3 cm. Proximal and mid aorta not well seen. Iliacs: Not well seen. IVC: Intrahepatic inferior vena cava is patent. Miscellaneous: No free abdominal fluid. IMPRESSION: Exam is somewhat limited due to acoustic windows and body habitus. 1. Increased hepatic echogenicity most consistent with hepatic steatosis. Other forms of hepatocellular disease could have similar appearance. 2. Distended gallbladder. No cholecystitis demonstrated. No gallstones. 3. No hydronephrosis. Dictated by: Ar Al M.D. on 03/22/2021 at 15:45 Approved by: Ar Al M.D. on 03/22/2021 at 15:50
[2021-03-22 13:34] LABS: Lactate 2HR (Lactic Acid Rflx) 1.9 mmol/L (0.7-2.1)
[2021-03-22] MEDS: LACTATED RINGERS 1,000 ML 100 ML IV (14:12)
--- NOTE | 2021-03-22 14:20 | P.HP_ITS ---
History of Present Illness History of Present Illness Date Patient Seen: 03/22/21 Time Patient Seen: 13:00 Date of Onset of Symptoms: 03/18/21 Chief complaint: Inflammation on RT Foot, Causing sickness Narrative: Patient is a 66-year-old female with history of type 2 diabetes mellitus with peripheral neuropathy, coronary artery disease, status post 2 vessel CABG 2013, status post coronary stenting April 2020 complicated by stent occlusion, history of CEA, paroxysmal atrial fibrillation on apixaban, CKD presented with complaints right foot redness and swelling. Patient has no feeling in her feet but noticed a puncture wound on bottom of right foot 4 or 5 days ago. Subsequently her foot became red and swollen with progression of r edness to the dorsal surface of the foot. She was seen by outpatient provider 3 days ago and started on doxycycline. has been providing local wound care keeping the foot clean. Patient states appearance of foot has worsened in spite of oral antibiotic therapy. She has had fevers and chills at home. Patient has also noticed some epigastric and right upper quadrant abdominal pain over the past few days. ER evaluation included findings of elevated WBC 13.2, creatinine 1.96 versus outpatient creatinine of 1.19 on 03/16/2021, procalcitonin 0.35. Additionally patient had elevated liver values with total bilirubin 1.4, AST 486, ALT 401, alkaline phosphatase 206. Previous LFT values were normal ranges. Negative COVID. Foot x-ray showed soft tissue edema and degenerative changes at 1st MTP and throughout IP joints of toes. Patient History Medical History (Updated 03/22/21 @ 14:36 by Corbin Rios MD) CAD (coronary artery disease) Diabetes Hyperlipidemia (06/11/14) Neuropathy Obstructive sleep apnea (08/13/17) Paroxysmal atrial fibrillation (08/13/17) Peripheral vascular disease (05/31/17) Spinal stenosis in cervical region Spinal stenosis of lumbar region Surgical History (Updated 03/22/21 @ 14:58 by Corbin Rios MD) H/O carotid endarterectomy H/O cervical spine surgery History of lumbar surgery Hx of CABG Family & Social History Family history unavailable: Yes (negative for diabetes) Social History: household members spouse Prior Living Arrangements House Safety & Behavioral: Feels Safe in Current Yes Environment Been Physically Hurt or No Threatened By a Person Suicidal Ideation Description None Suicide Plan Description No Plan Tobacco & Substance use: Smoking Status Current every day smoker alcohol intake frequency holiday/special occasion Substance Use Type marijuana Meds Home Medications and Allergies Home Medications Medication Instructions Recorded Confirmed Type apixaban 5 mg tablet (Eliquis) mg 10/17/20 History dronedarone 400 mg tablet (Multaq) mg 10/17/20 History metoprolol succinate 50 mg PO 10/17/20 History tablet,extended release 24 hr Allergies Allergy/AdvReac Type Severity Reaction Status Date / Time Penicillins [PENICILLINS] Allergy Severe Hives Verified 03/22/21 13:52 Sulfa (Sulfonamide Allergy Severe Hives Verified 03/22/21 13:51 Antibiotics) [SULFA (SULFONAMIDE ANTIBIOTICS)] Review of Systems Review of Systems Narrative: No chest pain, dyspnea, cough, dysuria. Exam Vital Signs (past 8 hours): - 03/22/21 09:21 Temperature 98.4 F Pulse Rate 74 Respiratory Rate 16 Blood Pressure 113/52 L Pulse Oximetry 98 Oxygen Delivery Method Room Air Narrative Exam Narrative: General: She is alert and cooperative female not appearing in acute distress HEENT: Pupils equal, anicteric, no oropharyngeal lesions Neck: Supple, no lymphadenopathy, left CEA scar Lungs: Clear to auscultation Heart: Normal S1 and S2, regular rate and rhythm, no murmur Abdomen: Nondistended, tender in epigastric and right upper quadrant without guarding, no HSM Extremities: No edema, there is diffuse edema of right proximal to distal foot, there is macular erythema over proximal to distal foot and involving 1st, 2nd and 3rd toes, there is a small fluid-filled blister over distal mid metatarsals, on forefoot there is fluctuance around possible puncture wound which is oozing pus from 2 areas Pulses: Right foot posterior tibial present, dorsalis pedis not palpated Neurological: Absence of light touch sensation distal lower extremities Objective Labs Result Diagrams: 03/22/21 09:50 03/22/21 09:50 Labs: Laboratory Results - last 24 hr 03/22/21 03/22/21 03/22/21 09:50 09:50 09:50 WBC 13.2 H RBC 4.42 Hgb 12.9 Hct 38.3 MCV 86.6 MCH 29.2 MCHC 33.7 RDW 14.2 Plt Count 277 Neut % (Auto) 83.2 H Lymph % (Auto) 6.6 L [place] % (Auto) 8.7 Eos % (Auto) 0.7 L Baso % (Auto) 0.8 Neut # (Auto) 16643 H Lymph # (Auto) 900 L [place] # (Auto) 1200 H Eos # (Auto) 100 Baso # (Auto) 100 PT 21.9 H INR 1.9 H Sodium 134 L Potassium 3.4 D Chloride 101 Carbon Dioxide 23 BUN 18 H Creatinine 1.96 H Estimated GFR 25.4 L BUN/Creatinine Ratio 9.2 Glucose 150 H Lactate Calcium 8.9 Total Bilirubin 1.4 H AST 486 H ALT 401 H Alkaline Phosphatase 206 H Total Protein 7.6 Albumin 3.8 Globulin 3.8 Albumin/Globulin Ratio 1.0 Procalcitonin 0.35 SARS-CoV-2 (PCR) 03/22/21 03/22/21 03/22/21 09:50 09:50 13:11 WBC RBC Hgb Hct MCV MCH MCHC RDW Plt Count Neut % (Auto) Lymph % (Auto) [place] % (Auto) Eos % (Auto) Baso % (Auto) Neut # (Auto) Lymph # (Auto) [place] # (Auto) Eos # (Auto) Baso # (Auto) PT INR Sodium Potassium Chloride Carbon Dioxide BUN Creatinine Estimated GFR BUN/Creatinine Ratio Glucose Lactate 2.2 H 1.9 Calcium Total Bilirubin AST ALT Alkaline Phosphatase Total Protein Albumin Globulin Albumin/Globulin Ratio Procalcitonin SARS-CoV-2 (PCR) Negative Assessment & Plan Assessment & Plan narrative: 1. Right foot cellulitis abscess -patient is not overtly septic -MRI: No deep abscess or osteomyelitis -blood and wound cultures pending, preliminary g stain 3+ GPC clusters -ortho consult Dr. Surendra Rodriguez, will do bedside I and D, patient at this time does not need to go to OR -continue vancomycin and consider adding additional antibiotics for broad- spectrum coverage, noting patient has severe allergy to penicillin and sulfa antibiotics -repeat CBC in a.m. 2. Abnormal LF with abdominal pain -patient complaining of recent epigastric and right upper quadrant pain, has new significant elevation of liver enzymes, mild elevation bilirubin and alk-phos as well -rule out cholecystitis, possible bacteremia seeding from infected foot, adverse reaction to outpatient doxycycline -obtain abdominal ultrasound, cannot do CT with contrast due to JUNITO -consider surgical consult 3. Acute kidney injury, likely prerenal -creatinine 1.96, prior 1.19 on March 16 -IV fluids -avoid IV contrast -repeat BMP in a.m. 4. Coronary artery disease -has extensive CAD history including CABG 2013, NSTEMI requiring stent April 2020, stent occlusion July 30, repeat stent occlusion 10/28 treated at with local radiation and had 2 additional stents -denies current chest pain, neck pain (her angina equivalent), or dyspnea -continue home meds -monitor on telemetry 5. Paroxysmal atrial fibrillation -currently in sinus rhythm -continue patient's Multaq and metoprolol and apixaban 6. Type 2 diabetes with peripheral neuropathy -admit glucose 150 -continue routine home oral meds Med reconciliation to be completed Code status: Full code DVT prophylaxis: Lovenox Surrogate decisionmaker: Spouse Time Spent With Patient Critical Care time: I spent a total of [] minutes of critical care time on this patient's care today; this time is exclusive of procedural time.
--- NOTE | 2021-03-22 14:56 | PC.NURSE ---
A&Ox4. VSS. True pain, has bilateral peripheral neuropathy. Open wound on plantar surface of left foot. Left foot swollen with cellulitis, outlined with marker, and large blister at base of middle toe. Wound open to air. LR going at 100 into L AC. NPO until abd ultrasound. Call light within reach, bed low.
--- NOTE | 2021-03-22 15:10 | P.CONS_ITS ---
History of Present Illness Consult details Date Patient Seen: 03/22/21 Time Patient Seen: 15:10 Chief complaint: Inflammation on RT Foot, Causing sickness Reason for consult: Right foot infection Requesting provider: Corbin Rios Narrative: The patient is a 66-year-old woman with diabetes mellitus. She has diabetic neuropathy and does not have excellent feeling in her feet. She stepped on something and then developed swelling and pain in the right foot With purulent drainage from dorsal blisters.. This became severe enough that she sought treatment at the [facility] Emergency Room today. She denies sy mptoms of systemic illness. Meds Home Medications and Allergies Home Medications Medication Instructions Recorded Confirmed Type apixaban 5 mg tablet (Eliquis) mg 10/17/20 History dronedarone 400 mg tablet (Multaq) mg 10/17/20 History metoprolol succinate 50 mg PO 10/17/20 History tablet,extended release 24 hr Allergies Allergy/AdvReac Type Severity Reaction Status Date / Time Penicillins [PENICILLINS] Allergy Severe Hives Verified 03/22/21 13:52 Sulfa (Sulfonamide Allergy Severe Hives Verified 03/22/21 13:51 Antibiotics) [SULFA (SULFONAMIDE ANTIBIOTICS)] Review of Systems Review of Systems Narrative: She denies fevers, chills, but does describe swelling and redness of the right foot with purulence drainage. Exam Vital Signs (past 8 hours): - 03/22/21 09:21 03/22/21 11:55 03/22/21 12:34 Temperature 98.4 F 99.5 F Pulse Rate 74 69 Respiratory Rate 16 18 Blood Pressure 113/52 L 111/55 L Pulse Oximetry 98 95 95 Oxygen Delivery Method Room Air Oxygen Flow Rate 0 Narrative Exam Narrative: on examination the right foot there is moderate swelling of the dorsum with an area approximately 4 x 6 cm that is moderately red. This has been outlined with a marking pen. At the base of the second and 3rd toes there is a superficial blister which is full of purulence fluid. on the plantar aspect of the foot between the 2nd and 3rd metatarsals there is a puncture wound which is draining a small amount of purulent fluid. Objective Imaging MRI scan of the right foot shows no isolated fluid collection. There is edema and there is fatty atrophy of the musculature. No evidence for abscess. Muscular atrophy likely related to chronic denervation.: My impression: Edema consistent with cellulitis. No evidence for isolated fluid collection requiring drainage. Labs Result Diagrams: 03/22/21 09:50 03/22/21 09:50 Labs: Laboratory Results - last 24 hr 03/22/21 03/22/21 03/22/21 09:50 09:50 09:50 WBC 13.2 H RBC 4.42 Hgb 12.9 Hct 38.3 MCV 86.6 MCH 29.2 MCHC 33.7 RDW 14.2 Plt Count 277 Neut % (Auto) 83.2 H Lymph % (Auto) 6.6 L [place] % (Auto) 8.7 Eos % (Auto) 0.7 L Baso % (Auto) 0.8 Neut # (Auto) 95077 H Lymph # (Auto) 900 L [place] # (Auto) 1200 H Eos # (Auto) 100 Baso # (Auto) 100 PT 21.9 H INR 1.9 H Sodium 134 L Potassium 3.4 D Chloride 101 Carbon Dioxide 23 BUN 18 H Creatinine 1.96 H Estimated GFR 25.4 L BUN/Creatinine Ratio 9.2 Glucose 150 H Lactate Calcium 8.9 Total Bilirubin 1.4 H AST 486 H ALT 401 H Alkaline Phosphatase 206 H Total Protein 7.6 Albumin 3.8 Globulin 3.8 Albumin/Globulin Ratio 1.0 Procalcitonin 0.35 SARS-CoV-2 (PCR) 03/22/21 03/22/21 03/22/21 09:50 09:50 13:11 WBC RBC Hgb Hct MCV MCH MCHC RDW Plt Count Neut % (Auto) Lymph % (Auto) [place] % (Auto) Eos % (Auto) Baso % (Auto) Neut # (Auto) Lymph # (Auto) [place] # (Auto) Eos # (Auto) Baso # (Auto) PT INR Sodium Potassium Chloride Carbon Dioxide BUN Creatinine Estimated GFR BUN/Creatinine Ratio Glucose Lactate 2.2 H 1.9 Calcium Total Bilirubin AST ALT Alkaline Phosphatase Total Protein Albumin Globulin Albumin/Globulin Ratio Procalcitonin SARS-CoV-2 (PCR) Negative [facility] Medical History CAD (coronary artery disease) Diabetes Hyperlipidemia (06/11/14) Neuropathy Obstructive sleep apnea (08/13/17) Paroxysmal atrial fibrillation (08/13/17) Peripheral vascular disease (05/31/17) Spinal stenosis in cervical region Spinal stenosis of lumbar region Surgical History H/O carotid endarterectomy H/O cervical spine surgery History of lumbar surgery Hx of CABG Social History household members: spouse Tobacco & Substance Use Smoking Status: Current every day smoker Assessment & Plan Assessment & Plan narrative: The patient is a diabetic with a puncture injury to the base of her right foot. This is currently not an abscess. She does appear to have cellulitis. G stain taken in the emergency room appears to be showing purely Gram-positive cocci at this time. She is on vancomycin. With her prove all at the bedside I unroof the blisters with the purulence fluid is the base of the toes dorsally. I also slightly extended the puncture wound on the plantar aspect of the foot using a 15 scalpel blade. Minimal additional purulent fluid was expressed. A sterile dressing was applied. I would suggest that she continue to be treated with elevation of the foot and IV antibiotics. Orthopedics will follow and potentially more aggressive intervention will be necessary if she appears to develop an abscess. For the time being she does not appear to have one. Time Spent With Patient Time with patient: 30 to 49 minutes with 50% spent counseling/coordinating care
--- NOTE | 2021-03-22 16:58 | PC.NURSE ---
Addendum entered by Trudy Patel R.N. 03/22/21 21:39: HS: c/o RuQ pain 8/10, prn tylenol ineffective. routine lyrica given. b/p elevated 120's / 113 call to AZAR Garcia, update given on how patient's day has been. after ultrasound i feel alittle uncomfortable right here. patient points to upper R quad. orders received to give her metoprolol that patient missed from earlier today. (did not take home meds.) 2139: recheck on blood pressure: 121/50, pulse 67, temp 96.2 95% RA. patient is cool and clammy, diaphoretic. blood glucose 85, low for patient. snacks offered, only 1/2 ice cream accepted. declined offers of protein, cheese, sandwich. or juice. updated Radha on above VS. patient reports pain slightly improved. changed position to lay facing the door, on her side. Original Note: [id number]: call to [facility] to clarify med list. awaiting response. patient mentioned that her will bring bottles tomorrow. ultrasound completed. awaiting results.
[2021-03-22] MEDS: DRONEDARONE 400 MG TABLET PO (18:57)
[2021-03-22] MEDS: ACETAMINOPHEN 325 MG TABLET 650 MG PO (19:04)
[2021-03-22] MEDS: ATORVASTATIN 20 MG TABLET 80 MG PO (21:22)
[2021-03-22] MEDS: PREGABALIN 50 MG CAPSULE 200 MG PO (21:22)
[2021-03-22] MEDS: APIXABAN 5 MG TABLET PO (21:29)
[2021-03-22] MEDS: METOPROLOL IR 25 MG TABLET PO (21:31)
[2021-03-23] VITALS (19 sets, daily range): BP systolic 96–121; BP diastolic 40–55; PULSE 53–71; RESP 16–18; TEMP 36.5–37.6; O2SAT 91–97
--- NOTE | 2021-03-23 07:25 | PC.NURSE ---
RN called pharmacy to verify vanco trough order. Sami, Pharmacist confirmed that no trough is due until 03/25.
[2021-03-23] MEDS: CLOPIDOGREL 75 MG TABLET PO (08:29)
[2021-03-23] MEDS: DRONEDARONE 400 MG TABLET PO ×2 (08:29→16:45)
[2021-03-23] MEDS: APIXABAN 5 MG TABLET PO ×2 (08:29→20:25)
[2021-03-23] MEDS: PREGABALIN 50 MG CAPSULE 200 MG PO ×3 (08:30→20:25)
[2021-03-23] MEDS: ENOXAPARIN 40 MG/0.4 ML SYRINGE SUBCUT (08:30)
--- NOTE | 2021-03-23 09:04 | P.PN_ITS ---
Subjective Subjective Date Patient Seen: 03/23/21 Time Patient Seen: 09:04 Interval history: The patient reports she is feeling some sensations of warmth and chills. Exam Vital Signs (past 8 hours): - 03/23/21 04:00 03/23/21 05:28 03/23/21 08:16 Temperature 98.1 F 98.5 F Pulse Rate 57 L 71 Respiratory Rate 18 18 Blood Pressure 96/40 L 105/49 L Pulse Oximetry 97 96 94 03/23/21 08:28 03/23/21 08:30 03/23/21 08:35 Temperature Pulse Rate 57 L 57 L Respiratory Rate Blood Pressure 109/55 L 109/55 L Pulse Oximetry 97 Oxygen Delivery Method Room Air Oxygen Flow Rate 0 Narrative Exam Narrative: Right foot examination is similar to immediately after bedside I and D yesterday. On the dorsum of the foot the blister bases are clean without additional discharge. There is an area of redness on the dorsum of the foot which appears to be partially bruising. This is not extending beyond the outlines placed on admission. On the plantar aspect of the foot is a roughly 3 x 6 mm ulceration underlying the 2nd metatarsal region. This extends to clean appearing muscle. Objective Labs Result Diagrams: 03/22/21 09:50 03/22/21 09:50 Labs: Laboratory Results - last 24 hr 03/22/21 03/22/21 03/22/21 09:50 09:50 09:50 WBC 13.2 H RBC 4.42 Hgb 12.9 Hct 38.3 MCV 86.6 MCH 29.2 MCHC 33.7 RDW 14.2 Plt Count 277 Neut % (Auto) 83.2 H Lymph % (Auto) 6.6 L [place] % (Auto) 8.7 Eos % (Auto) 0.7 L Baso % (Auto) 0.8 Neut # (Auto) 88071 H Lymph # (Auto) 900 L [place] # (Auto) 1200 H Eos # (Auto) 100 Baso # (Auto) 100 PT 21.9 H INR 1.9 H Sodium 134 L Potassium 3.4 D Chloride 101 Carbon Dioxide 23 BUN 18 H Creatinine 1.96 H Estimated GFR 25.4 L BUN/Creatinine Ratio 9.2 Glucose 150 H Lactate Calcium 8.9 Total Bilirubin 1.4 H AST 486 H ALT 401 H Alkaline Phosphatase 206 H Total Protein 7.6 Albumin 3.8 Globulin 3.8 Albumin/Globulin Ratio 1.0 Procalcitonin 0.35 SARS-CoV-2 (PCR) 03/22/21 03/22/21 03/22/21 09:50 09:50 13:11 WBC RBC Hgb Hct MCV MCH MCHC RDW Plt Count Neut % (Auto) Lymph % (Auto) [place] % (Auto) Eos % (Auto) Baso % (Auto) Neut # (Auto) Lymph # (Auto) [place] # (Auto) Eos # (Auto) Baso # (Auto) PT INR Sodium Potassium Chloride Carbon Dioxide BUN Creatinine Estimated GFR BUN/Creatinine Ratio Glucose Lactate 2.2 H 1.9 Calcium Total Bilirubin AST ALT Alkaline Phosphatase Total Protein Albumin Globulin Albumin/Globulin Ratio Procalcitonin SARS-CoV-2 (PCR) Negative PFSH Medical History CAD (coronary artery disease) Diabetes Hyperlipidemia (06/11/14) Neuropathy Obstructive sleep apnea (08/13/17) Paroxysmal atrial fibrillation (08/13/17) Peripheral vascular disease (05/31/17) Spinal stenosis in cervical region Spinal stenosis of lumbar region Surgical History H/O carotid endarterectomy H/O cervical spine surgery History of lumbar surgery Hx of CABG Social History household members: spouse Smoking Status: Current every day smoker Assessment & Plan Assessment & Plan narrative: Luz madrid is a 66-year-old diabetic woman with a right diabetic foot infection. She had dorsal superficial blistering with purulence fluid in the blisters which has been drained. She has a very small plantar ulcer underlying the metatarsal heads. This does not appear to track de ep and currently does not have any purulence discharge. Her MRI scan showed no deep fluid collections requiring drainage and no osteomyelitis. I would recommend obtaining a wound care consult to establish her in the [facility] and to continue antibiotics. It does not appear that she will require surgical drainage of a deep abscess or amputation for osteomyelitis. Time Spent With Patient Critical Care time: I spent a total of 30 minutes of critical care time on this patient's care today; this time is exclusive of procedural time.
[2021-03-23] MEDS: VANCOMYCIN 1,000 MG/200 ML PIGGYBACK 200 MG IV (10:17)
[2021-03-23] MEDS: LACTATED RINGERS 1,000 ML 100 ML IV (10:18)
[2021-03-23 11:21] LABS: Add Manual Diff / Slide Review NO; Basophils Absolute Auto 100 /uL (0-100); Eosinophils Absolute Auto 200 /uL (0-450); Eosinophils Percent Auto 2.3 % (2-4); Hemoglobin 12.4 g/dL (12.0-16.0); Lymphocytes Absolute Auto 1100 /uL (1100-4500); Lymphocytes Percent Auto 10.6 % (25-40); Mean Corpuscular HGB Conc 33.4 % (30-36); Mean Corpuscular Volume 86.7 fL (80-100); Monocytes Absolute Auto 1000 /uL (0-900); Monocytes Percent Auto 9.5 % (3-14); Neutrophils Absolute Auto 8200 /uL (1500-7000); Neutrophils Percent Auto 76.6 % (50-75); Platelet Count 262 X10^3/uL (150-400); Red Blood Cell Count 4.27 X10^6/uL (4.0-5.2); Red Cell Distribution Width 14.3 % (11.6-14.8); White Blood Cell Count 10.7 X10^3/uL (4.5-11.0)
[2021-03-23] MEDS: CEFAZOLIN 1 GM VIAL 2 GM IV ×2 (11:28→18:57)
[2021-03-23] MEDS: INSULIN LISPRO 100 UNIT/ML 3ML VIAL SUBCUT (11:29)
[2021-03-23 11:39] LABS: Alanine Aminotransferase 271 IU/L (<35); Albumin 3.4 g/dL (3.5-5.0); Alkaline Phosphatase 156 U/L (38-126); Aspartate Aminotransferase 236 IU/L (14-36); BUN Creatinine Ratio 13.5 (6-22); Bilirubin Total 0.6 mg/dL (0.2-1.3); Blood Urea Nitrogen 18 mg/dL (7-17); Carbon Dioxide 27 mmol/L (22-32); Chloride 106 mmol/L (98-107); Estimated Glomerular Filt Rate 39.7 mL/min (>60); Globulin 3.3 g/dL (1.7-4.1); Glucose 138 mg/dL (80-110); HEMOLYSIS < 15 (0-50); Potassium 4.4 mmol/L (3.4-5.1); Sodium 142 mmol/L (137-145); Total Protein 6.7 g/dL (6.3-8.2)
--- NOTE | 2021-03-23 12:33 | CM.DANOTE ---
DCP: Case received, EMR reviewed and met with patient. Introduced self and role. Was able to obtain information regarding patient's baseline activity status prior to hospitalization. DCP assessment completed with information currently available. Patient is a 66 year old female who admitted yesterday morning to the care of the hospitalist herb. PCP: Dr. Ray. Payer: confirmed: Medicare/Commercial Insurance. Patient came to the hospital via private vehicle secondary to having a laceration to her foot, as well as nausea. Patient had stepped on a foreign object at home, had not felt it, she has history of diabetic neuropathy. Patient holds diagnosis of cellulitis without abscess. She will be getting IV ABO while here, with goal of going home with oral antibiotics, as this was discussed at team rounds. Patient may also be getting wound care consult. Met with patient in her room. She is independent at her baseline, and alert and oriented. She resides here in [place] with her spouse, Corbin. She indicated, she thinks that she cut her foot on the metal stripping of where the carpet is. She indicated, she didn't feel anything, just notices some blood on the floor. P: DCP to continue to follow for any resources needed. Patient should be able to go home when she is medically stable and can go on oral antibiotics. Sara Morin RN/Wallpaperer Helper
--- NOTE | 2021-03-23 14:13 | P.PN_ITS ---
Subjective Subjective Interval history: 66-year-old female with history of diabetes with peripheral neuropathy admitted due to right foot cellulitis secondary to puncture wound. Also noted to have acutely elevated LFTs. Patient has numbness in feet and denies pain there. She denies abdominal pain. Exam Vital Signs (past 8 hours): - 03/23/21 08:05 03/23/21 08:16 03/23/21 08:28 Temperature 98.5 F Pulse Rate 71 57 L Respiratory Rate 18 Blood Pressure 105/49 L 109/55 L Pulse Oximetry 97 94 03/23/21 08:30 03/23/21 08:35 03/23/21 12:00 Temperature 97.7 F Pulse Rate 57 L 62 Respiratory Rate 18 Blood Pressure 109/55 L 121/53 L Pulse Oximetry 97 94 03/23/21 12:30 03/23/21 12:53 Temperature Pulse Rate Respiratory Rate Blood Pressure Pulse Oximetry 95 95 Oxygen Delivery Method Room Air Oxygen Flow Rate 0 Narrative Exam Narrative: General: Alert, NAD Abdomen: Nontender Extremities: Right foot with stable to improved erythema, 3 x 6 mm ulceration at the distal 2nd metatarsal likely from puncture wound, without drainage Objective Labs Result Diagrams: 03/23/21 10:55 03/23/21 11:02 Labs: Laboratory Results - last 24 hr 03/23/21 03/23/21 10:55 11:02 WBC 10.7 RBC 4.27 Hgb 12.4 Hct 37.0 MCV 86.7 MCH 29.0 MCHC 33.4 RDW 14.3 Plt Count 262 Neut % (Auto) 76.6 H Lymph % (Auto) 10.6 L [place] % (Auto) 9.5 Eos % (Auto) 2.3 Baso % (Auto) 1.0 Neut # (Auto) 8200 H Lymph # (Auto) 1100 [place] # (Auto) 1000 H Eos # (Auto) 200 Baso # (Auto) 100 Sodium 142 Potassium 4.4 Chloride 106 Carbon Dioxide 27 BUN 18 H Creatinine 1.33 H Estimated GFR 39.7 L BUN/Creatinine Ratio 13.5 Glucose 138 H Calcium 9.0 Total Bilirubin 0.6 AST 236 H ALT 271 H Alkaline Phosphatase 156 H Total Protein 6.7 Albumin 3.4 L Globulin 3.3 Albumin/Globulin Ratio 1.0 [facility] Medical History CAD (coronary artery disease) Diabetes Hyperlipidemia (06/11/14) Neuropathy Obstructive sleep apnea (08/13/17) Paroxysmal atrial fibrillation (08/13/17) Peripheral vascular disease (05/31/17) Spinal stenosis in cervical region Spinal stenosis of lumbar region Surgical History H/O carotid endarterectomy H/O cervical spine surgery History of lumbar surgery Hx of CABG Social History household members: spouse Smoking Status: Current every day smoker Assessment & Plan Assessment & Plan narrative: 1. Right foot cellulitis -patient is not overtly septic, cellulitis improving, WBC downtrending to normal -MRI: No deep abscess or osteomyelitis -wound culture growing group B Streptococcus, blood cultures negative -ortho consult Dr. Surendra Rodriguez, performed bedside I and D, noting no deep abscess to necessitate further exploration -03/23 discontinued vancomycin, started cephazolin 2 g IV q.8 hours to treat Streptococcus found on wound culture -monitor for allergic reaction to antibiotics, patient has severe allergy to penicillin and sulfa antibiotics -wound care consult 2. Abnormal LF with abdominal pain -patient complaining of recent epigastric and right upper quadrant pain, has new significant elevation of liver enzymes, mild elevation bilirubin and alk-phos as well -abdominal ultrasound without acute pathology -abnormal LFTs likely medication related secondary to outpatient doxycycline patient was taking in the week prior to admission, adverse reaction to Multaq less likely as patient has been on this anti arrhythmic for several years -LFTs are improving on current labs 3. Acute kidney injury, likely prerenal -creatinine 1.96, prior 1.19 on March 16 -current creatinine 1.33 improving close to baseline -IV fluids Hep-Lock -avoid IV contrast 4. Coronary artery disease -has extensive CAD history including CABG 2013, NSTEMI requiring stent April 2020, stent occlusion July 30, repeat stent occlusion 10/28 treated at with local radiation and had 2 additional stents -denies current chest pain, neck pain (her angina equivalent), or dyspnea -continue clopidogrel, statin, and metoprolol -monitor on telemetry 5. Paroxysmal atrial fibrillation -currently in sinus rhythm -continue patient's Multaq and metoprolol and apixaban 6. Type 2 diabetes with peripheral neuropathy -admit glucose 150 -continue low-dose sliding scale, patient on Jardiance at home -continue pregabalin for neuropathy 7. Hypertension -restarted losartan 50 mg HS per home routine -patient also taking KCL 20 mEq b.i.d. although not on diuretic, she use to be on chlorthalidone which was discontinued, and I wonder whether KCL was meant to be discontinued as well Med reconciliation was completed. Code status: Full code DVT prophylaxis: Lovenox Surrogate decisionmaker: Spouse Time Spent With Patient Critical Care time: I spent a total of [] minutes of critical care time on this patient's care today; this time is exclusive of procedural time.
--- NOTE | 2021-03-23 16:18 | DIET.CONS ---
Addendum entered by Joy Peguero 03/24/21 13:11: Pt tolerating ONS Yoshi to support wound healing. Pt willing to drink bid. Original Note: Dietary Consultation Note Admission Date: 03/22/2021 11:16 Assessment: 66y F admitted for right foot diabetic ulcer referred to nutrition for same. Pt reports DM neuropathy of feet, thought to have stepped on metal carpet edging leading to ulceration. Pt completed Cardiac Rehab two years ago and remembers RD from class. Pt purchased monkfruit extract and often uses instead of sugar at home after learning about it from class. Pt reports not having much of a sweet tooth but her does the cooking/dishing up of food at home and shows love with food. Pts is sweets/dessert person and often brings home dessert for the two of them which pt does participate in much of the time. Pt willing to have referral to outpatient DM education for closer management of DM2. Pt also willing to trial ONS Yoshi to assist in DM wound healing. Ht: 177.8 cm Wt: 106.5 kg BMI: 34.7 UBW: Last BM: 03/22/21 (03/22/21 11:35) MNA: 9 Alfonzo Score: 20 Diet: 03/22/21 Dinner Carbohydrate Consistent Diet Diet Modifications: Carbohydrate level: Medium (3 CHO) Percent of last meal consumed (last 48h) Percent Meal Consumed 75% 03/23/21 09:10 Percent Meal Consumed 50% 03/22/21 18:15 Labs: RBC 4.27 X10^6/uL (4.0-5.2) 03/23/21 10:55 Hgb 12.4 g/dL (12.0-16.0) 03/23/21 10:55 Hct 37.0 % (36-46) 03/23/21 10:55 Creatinine 1.33 mg/dL (0.52-1.04) H 03/23/21 11:02 Lactate 1.9 mmol/L (0.7-2.1) 03/22/21 13:11 Interventions: 1. Recc referral for DSME from PCP. 2. Recc trial of ONS Yoshi to support wound healing while hospitalized. Monitoring/Evaluations: ONS tolerance
[2021-03-23] MEDS: ATORVASTATIN 20 MG TABLET 80 MG PO (20:25)
[2021-03-23] MEDS: LOSARTAN 50 MG TABLET PO (20:25)
[2021-03-24] VITALS (8 sets, daily range): BP systolic 91–116; BP diastolic 51–72; PULSE 62–82; RESP 15–16; TEMP 36.3–36.8; O2SAT 92–97
[2021-03-24] MEDS: CEFAZOLIN 1 GM VIAL 2 GM IV ×2 (03:40→12:40)
[2021-03-24 05:36] LABS: Add Manual Diff / Slide Review NO; Basophils Absolute Auto 100 /uL (0-100); Basophils Percent Auto 1.2 % (0-2); Eosinophils Absolute Auto 400 /uL (0-450); Eosinophils Percent Auto 4.7 % (2-4); Hematocrit 37.7 % (36-46); Hemoglobin 12.5 g/dL (12.0-16.0); Lymphocytes Absolute Auto 1800 /uL (1100-4500); Lymphocytes Percent Auto 20.8 % (25-40); Mean Corpuscular HGB Conc 33.1 % (30-36); Mean Corpuscular Hemoglobin 28.9 PG (26-34); Mean Corpuscular Volume 87.3 fL (80-100); Monocytes Absolute Auto 900 /uL (0-900); Monocytes Percent Auto 10.5 % (3-14); Neutrophils Absolute Auto 5300 /uL (1500-7000); Neutrophils Percent Auto 62.8 % (50-75); Platelet Count 267 X10^3/uL (150-400); Red Blood Cell Count 4.32 X10^6/uL (4.0-5.2); Red Cell Distribution Width 14.3 % (11.6-14.8); White Blood Cell Count 8.5 X10^3/uL (4.5-11.0)
[2021-03-24 05:47] LABS: Alanine Aminotransferase 251 IU/L (<35); Albumin 3.2 g/dL (3.5-5.0); Albumin Globulin Ratio 0.9 (1.0-2.8); Alkaline Phosphatase 174 U/L (38-126); Aspartate Aminotransferase 246 IU/L (14-36); BUN Creatinine Ratio 14.4 (6-22); Bilirubin Total 0.4 mg/dL (0.2-1.3); Blood Urea Nitrogen 20 mg/dL (7-17); Calcium 8.7 mg/dL (8.4-10.2); Carbon Dioxide 29 mmol/L (22-32); Chloride 107 mmol/L (98-107); Estimated Glomerular Filt Rate 37.7 mL/min (>60); Globulin 3.4 g/dL (1.7-4.1); Glucose 103 mg/dL (80-110); HEMOLYSIS < 15 (0-50); Potassium 3.7 mmol/L (3.4-5.1); Sodium 142 mmol/L (137-145); Total Protein 6.6 g/dL (6.3-8.2)
[2021-03-24] MEDS: DRONEDARONE 400 MG TABLET PO (07:49)
[2021-03-24] MEDS: ENOXAPARIN 40 MG/0.4 ML SYRINGE SUBCUT (07:50)
[2021-03-24] MEDS: APIXABAN 5 MG TABLET PO (07:50)
[2021-03-24] MEDS: PREGABALIN 50 MG CAPSULE 200 MG PO (07:50)
[2021-03-24] MEDS: CLOPIDOGREL 75 MG TABLET PO (07:50)
[2021-03-24] MEDS: METOPROLOL ER 25 MG TABLET 12.5 MG PO ×3 (08:02→12:25)
--- NOTE | 2021-03-24 12:18 | CM.DPC ---
DCP Cont: Checked in with patient. was at bedside. She has discharge orders for home on p.o. antibiotics. Gave patient a copy of her IMM. She has been pleased with the care here at the hospital. P: Patient is to discharge home today. Sara Morin RN/Principal Technical Writer
[2021-03-24] MEDS: METOPROLOL ER 25 MG TABLET PO (12:25)
--- NOTE | 2021-03-24 12:45 | PM.PN.1 ---
Subjective Subjective Date Patient Seen: 03/24/21 Time Patient Seen: 12:46 Interval history: The patient states her symptoms are improving. She denies any fevers, chills, night sweats overnight or today. She is feeling well and would like to be discharged home today Exam Vital Signs (past 8 hours): - 03/24/21 05:46 03/24/21 08:00 03/24/21 08:50 Temperature 97.5 F L Pulse Rate 71 Respiratory Rate 15 Blood Pressure 91/72 Pulse Oximetry 95 94 96 03/24/21 12:00 03/24/21 12:11 Temperature 97.3 F L Pulse Rate 82 Respiratory Rate 16 Blood Pressure 116/66 Pulse Oximetry 94 96 Oxygen Delivery Method Room Air Oxygen Flow Rate 0 Narrative Exam Narrative: Right foot: On the dorsum of the foot the blister bases are clean without additional discharge. There is an area of redness on the dorsum of the foot which appears to be partially bruising, and has not extended past original lines of demarcation. On the plantar aspect of the foot is a roughly 3 x 6 mm ulceration underlying the 2nd metatarsal region with surrounding induration, but no fluctuance. Bilateral calves are soft, nontender to palpation. Sensation is decreased in the left lower extremity as compared to the right. Objective Labs Result Diagrams: 03/24/21 05:15 03/24/21 05:15 Labs: Laboratory Results - last 24 hr 03/24/21 03/24/21 05:15 05:15 WBC 8.5 RBC 4.32 Hgb 12.5 Hct 37.7 MCV 87.3 MCH 28.9 MCHC 33.1 RDW 14.3 Plt Count 267 Neut % (Auto) 62.8 Lymph % (Auto) 20.8 L [place] % (Auto) 10.5 Eos % (Auto) 4.7 H Baso % (Auto) 1.2 Neut # (Auto) 5300 Lymph # (Auto) 1800 [place] # (Auto) 900 Eos # (Auto) 400 Baso # (Auto) 100 Sodium 142 Potassium 3.7 Chloride 107 Carbon Dioxide 29 BUN 20 H Creatinine 1.39 H Estimated GFR 37.7 L BUN/Creatinine Ratio 14.4 Glucose 103 Calcium 8.7 Total Bilirubin 0.4 AST 246 H ALT 251 H Alkaline Phosphatase 174 H Total Protein 6.6 Albumin 3.2 L Globulin 3.4 Albumin/Globulin Ratio 0.9 L PFSH Medical History CAD (coronary artery disease) Diabetes Hyperlipidemia (06/11/14) Neuropathy Obstructive sleep apnea (08/13/17) Paroxysmal atrial fibrillation (08/13/17) Peripheral vascular disease (05/31/17) Spinal stenosis in cervical region Spinal stenosis of lumbar region Surgical History H/O carotid endarterectomy H/O cervical spine surgery History of lumbar surgery Hx of CABG Social History household members: spouse Smoking Status: Current every day smoker Assessment & Plan Assessment & Plan narrative: right diabetic foot infection She had dorsal superficial blistering with purulence fluid in the blisters which has been drained. She has a very small plantar ulcer underlying the metatarsal heads. This does not appear to track deep and currently does not have any purulence discharge. Her MRI scan showed no deep fluid collections requiring drainage and no osteomyelitis. It does not appear that she will require surgical drainage of a deep abscess or amputation for osteomyelitis. -she has a wound care appointment scheduled on Monday -Continue antibiotics. -follow-up with orthopedics in 10-14 days after discharge Time Spent With Patient Critical Care time: I spent a total of [] minutes of critical care time on this patient's care today; this time is exclusive of procedural time.
--- NOTE | 2021-03-24 14:51 | PM.DS.1 ---
History of Present Illness History of Present Illness Chief complaint: Inflammation on RT Foot, Causing sickness Narrative: Patient is a 66-year-old female with history of type 2 diabetes mellitus with peripheral neuropathy, coronary artery disease, status post 2 vessel CABG 2013, status post coronary stenting April 2020 complicated by stent occlusion, history of CEA, paroxysmal atrial fibrillation on apixaban, CKD presented with complaints right foot redness and swelling. Patient has no feeling in her feet but noticed a puncture wound on bottom of right foot 4 or 5 days ago. Subsequently her foot became red and swollen with progression of redness to the dorsal surface of the foot. She was seen by outpatient provider 3 days ago and started on doxycycline. has been providing local wound care keeping the foot clean. Patient states appearance of foot has worsened in spite of oral antibiotic therapy. She has had fevers and chills at home. Patient has also noticed some epigastric and right upper quadrant abdominal pain over the past few days. ER evaluation included findings of elevated WBC 13.2, creatinine 1.96 versus outpatient creatinine of 1.19 on 03/16/2021, procalcitonin 0.35. Additionally patient had elevated liver values with total bilirubin 1.4, AST 486, ALT 401, alkaline phosphatase 206. Previous LFT values were normal ranges. Negative COVID. Foot x-ray showed soft tissue edema and degenerative changes at 1st MTP and throughout IP joints of toes. Discharge Providers Provider Date of admission: 03/22/21 11:16 Discharge Date: 03/24/21 Primary care physician: Noah Ray MD Consults: 03/22/21 12:43 Consult to Physician Routine Comment: Consulting Provider: Vadim Rodriguez Reason for consultation: foot cellulitis Has provider been notified: Yes 03/23/21 09:02 Consult to Dietitian, Adult Routine Comment: Reason For Exam: right foot diabetic ulcer under 2nd met head Consult to Wound Care Routine Comment: Consulting Provider: Param- Wound Care Discharge provider: Corbin Rios MD Summary Hospital Course Discharge Diagnosis: 1. Right foot cellulitis 2. Right foot plantar puncture wound 3. Acute transaminitis 4. Type 2 diabetes with peripheral neuropathy 5. Acute kidney injury 6. Coronary artery disease 7. Paroxysmal atrial fibrillation 8. Hypertension Consultants: Dr. Vadim Rodriguez orthopedic surgery This is a 66-year-old female admitted for acute right foot cellulitis. 1. Right foot cellulitis -this was associated with a plantar puncture wound in patient with diminished sensation in feet secondary to diabetic neuropathy -MRI:? No deep abscess or osteomyelitis -wound culture grew group B Streptococcus, blood cultures negative -ortho consult Dr. Surendra Rodriguez, performed bedside I and D, noting no deep abscess to necessitate further exploration -03/23 discontinued vancomycin, started cephazolin 2 g IV q.8 hours to treat Streptococcus found on wound culture -monitored for allergic reaction to antibiotics, patient has severe allergy to penicillin and sulfa antibiotics -wound care consult, seen by Deana Penny prior to discharge -discharged on cephalexin 500 mg 4 times daily x 10 days -has wound care appointment on Monday next week 2. Acute transaminitis -patient complaining of recent epigastric and right upper quadrant pain, has new significant elevation of liver enzymes, mild elevation bilirubin and alk-phos as well -abdominal ultrasound without acute pathology -abnormal LFTs likely medication related secondary to outpatient doxycycline patient was taking in the week prior to admission, less likely adverse reaction to Multaq -LFTs are improving on current labs -recheck liver function tests in 1-2 weeks 3. Acute kidney injury, likely prerenal -admission creatinine 1.96, prior 1.19 on March 16 -current creatinine 1.33 improving close to baseline -treated with IV fluids 4. Coronary artery disease -has extensive CAD history including CABG 2013, NSTEMI requiring stent April 2020, stent occlusion July 30, repeat stent occlusion 10/28 treated at with local radiation and had 2 additional stents -denies current chest pain, neck pain (her angina equivalent), or dyspnea -continue clopidogrel, statin, and metoprolol -monitored on telemetry 5. Paroxysmal atrial fibrillation -patient was mostly in sinus rhythm but on day of discharge she went back into atrial fibrillation with RVR with ventricular rate in the 130s to 140s, however she was asymptomatic while tachycardic -patient sees Dr. Valentine for Cardiology and has had recent adjustments in medication -increased her metoprolol succinate ER from 12.5 mg to 25 mg once daily -continue patient's Multaq and apixaban 6. Type 2 diabetes with peripheral neuropathy -admit glucose 150 -continue Jardiance at home -continue pregabalin for neuropathy 7. Hypertension -restarted losartan 50 mg HS per home routine -patient also taking KCL 20 mEq b.i.d. although not on diuretic, she use to be on chlorthalidone which was discontinued -discontinued KCL since patient no longer on thiazide diuretic Time Spent with Patient Time spent: Greater than 30 minutes Exam Vital Signs (past 8 hours): - 03/24/21 08:00 03/24/21 08:50 03/24/21 12:00 Temperature 97.5 F L 97.3 F L Pulse Rate 71 82 Respiratory Rate 15 16 Blood Pressure 91/72 116/66 Pulse Oximetry 94 96 94 03/24/21 12:11 03/24/21 13:06 Temperature Pulse Rate Respiratory Rate Blood Pressure Pulse Oximetry 96 97 Oxygen Delivery Method Room Air Oxygen Flow Rate 0 Narrative Exam Narrative: General: She is alert and in no acute distress Extremities: There is dusky macular erythema with then marker outlines on dorsum of right foot, there is opened blister on the dorsum of 2nd and 3rd toes, there is a small ulcer on the 2nd metatarsal plantar surface, there is small amount of pus draining from the ulcer, but no additional pus was able to be expressed Objective Labs Result Diagrams: 03/24/21 05:15 03/24/21 05:15 Labs: Laboratory Results - last 24 hr 03/24/21 03/24/21 05:15 05:15 WBC 8.5 RBC 4.32 Hgb 12.5 Hct 37.7 MCV 87.3 MCH 28.9 MCHC 33.1 RDW 14.3 Plt Count 267 Neut % (Auto) 62.8 Lymph % (Auto) 20.8 L [place] % (Auto) 10.5 Eos % (Auto) 4.7 H Baso % (Auto) 1.2 Neut # (Auto) 5300 Lymph # (Auto) 1800 [place] # (Auto) 900 Eos # (Auto) 400 Baso # (Auto) 100 Sodium 142 Potassium 3.7 Chloride 107 Carbon Dioxide 29 BUN 20 H Creatinine 1.39 H Estimated GFR 37.7 L BUN/Creatinine Ratio 14.4 Glucose 103 Calcium 8.7 Total Bilirubin 0.4 AST 246 H ALT 251 H Alkaline Phosphatase 174 H Total Protein 6.6 Albumin 3.2 L Globulin 3.4 Albumin/Globulin Ratio 0.9 L PFSH Medical History CAD (coronary artery disease) Diabetes Hyperlipidemia (06/11/14) Neuropathy Obstructive sleep apnea (08/13/17) Paroxysmal atrial fibrillation (08/13/17) Peripheral vascular disease (05/31/17) Spinal stenosis in cervical region Spinal stenosis of lumbar region Surgical History H/O carotid endarterectomy H/O cervical spine surgery History of lumbar surgery Hx of CABG Social History household members: spouse Smoking Status: Current every day smoker Discharge Plan Discharge Plan Patient Disposition: Home Provider Discharge Comment: Take antibiotic as prescribed. Follow at wound care Monday next week. Keep weight off right forefoot. Your heart rate was in 140's this morning with afib. I am increasing your metoprolol dose to 25 mg once daily to better control rate when you are in afib. Follow up with your cloud consultant Dr Valentine. Discharge orders & Medications Prescriptions: New cephalexin 500 mg capsule 500 mg PO QID 12 Days Qty: 48 RF: 0 metoprolol succinate 25 mg tablet extended release 24 hr 25 mg PO DAILY 30 Days Qty: 30 RF: 0 Continued Multaq 400 mg tablet 400 mg PO BID RF: 0 Eliquis 5 mg tablet 5 mg PO BID RF: 0 losartan 50 mg tablet 50 mg PO BEDTIME RF: 0 clopidogrel 75 mg Tablet 75 mg PO DAILY RF: 0 nitroglycerin 0.4 mg Tablet, Sublingual 0.4 mg SUBLINGUAL Q5M PRN (Reason: PAIN) RF: 0 rosuvastatin 40 mg tablet 40 mg PO DAILY RF: 0 pregabalin 200 mg capsule 200 mg PO TID RF: 0 cholecalciferol (vitamin D3) 50 mcg (2,000 unit) Tablet 50 mcg PO DAILY RF: 0 Jardiance 10 mg tablet 10 mg PO DAILY RF: 0 Discontinued metoprolol succinate [Toprol XL] 50 mg tablet extended release 24 hr 12.5 mg PO DAILY RF: 0 potassium chloride 20 mEq tablet,ER particles/crystals 20 meq PO BID RF: 0 Follow up/Referrals: Noah Ray MD [Primary Care Provider] - Vadim Rodriguez MD [Physician] - (Follow-up in 10 days) Discharge Health Status Multidrug resistant organism: No MDRO Diet/Activity/Treatments Diet: Carb-consistent/Diabetic Discharge Data Primary Care Provider: Noah Ray
== END 2021-03-24 13:42 | disposition home or self-care (01) | DRG 603 ==
LOC: ED 09:40 → AC 11:17
PROVIDERS: Admitting Provider Internal Medicine; Emergency Provider Emergency Medicine; Family Provider Internal Medicine; PCP Internal Medicine; Referring Provider Emergency Medicine; Visit Provider Internal Medicine
DX: L03.115 Cellulitis of right lower limb (principal); N17.9 Acute kidney failure, unspecified; S91.331A Puncture wound without foreign body, right foot, initial encounter; E11.628 Type 2 diabetes mellitus with other skin complications; E11.42 Type 2 diabetes mellitus with diabetic polyneuropathy; B95.1 Streptococcus, group B, as the cause of diseases classified elsewhere; R74.01 Elevation of levels of liver transaminase levels; T36.4X5A Adverse effect of tetracyclines, initial encounter; F17.200 Nicotine dependence, unspecified, uncomplicated; I25.10 Atherosclerotic heart disease of native coronary artery without angina pectoris; I48.0 Paroxysmal atrial fibrillation; I10 Essential (primary) hypertension; Z95.1 Presence of aortocoronary bypass graft; Z95.5 Presence of coronary angioplasty implant and graft; Z79.01 Long term (current) use of anticoagulants; Z79.84 Long term (current) use of oral hypoglycemic drugs; X58.XXXA Exposure to other specified factors, initial encounter; Z23 Encounter for immunization
CPT/HCPCS: 36415; 73630; 73720; 76700; 80053; 82962; 83605; 84145; 85025; 85610; 87040; 87070; 87077; 87147; 87205; 87635; 90471; 94760; 99284; C9803; 90715; J0690; J1650; J1815

== ENCOUNTER → 2021-03-29 14:41 | Outpatient (CLI) | payer MEDICARE, OTHER, SELFPAY ==
[2021-03-22 11:35] VITALS: BMI 34.7
== END ==
PROVIDERS: Family Provider Internal Medicine; PCP Internal Medicine; Referring Provider Internal Medicine; Visit Provider Family Medicine
DX: E11.621 Type 2 diabetes mellitus with foot ulcer (principal); L97.512 Non-pressure chronic ulcer of other part of right foot with fat layer exposed; L03.115 Cellulitis of right lower limb
CPT/HCPCS: 11042; 87070; 87075; 87205; 99204; 99214

== ENCOUNTER → 2021-03-29 | Outpatient (CLI) | payer MEDICARE, OTHER, SELFPAY ==
[2021-03-22 11:35] VITALS: BMI 34.7
== END ==
PROVIDERS: Family Provider Internal Medicine; PCP Internal Medicine; Referring Provider Internal Medicine; Visit Provider Family Medicine
DX: E11.621 Type 2 diabetes mellitus with foot ulcer (principal); L97.512 Non-pressure chronic ulcer of other part of right foot with fat layer exposed; L03.115 Cellulitis of right lower limb

== ENCOUNTER 2021-03-31 06:15 | Emergency (ER) | payer MEDICARE, OTHER, SELFPAY ==
[2021-03-22 11:35] VITALS: BMI 34.7
[2021-03-31] VITALS (65 sets, daily range): BP systolic 78–157; BP diastolic 52–96; PULSE 81–147; RESP 11–46; TEMP 36–36.1; O2SAT 83–98; BMI 35.6
--- NOTE | 2021-03-31 06:25 | DI.RAD.S_ITS ---
PROCEDURE: XR CHEST 1V INDICATIONS: short of breath TECHNIQUE: One view of the chest was acquired. COMPARISON: [facility], CR, XR CHEST 1V, 10/17/2020, 21:15. FINDINGS: Surgical changes and devices: Sternotomy wires and mediastinal clips are present. Lungs and pleura: Diffuse interstitial prominence is seen throughout both lungs. No pleural effusion or pneumothorax is seen. Mediastinum: Mediastinal contours appear normal. Heart size is borderline enlarged. Bones and chest wall: No suspicious bony lesions. Overlying soft tissues appear unremarkable. IMPRESSION: Diffuse bilateral interstitial thickening and vascular prominence is suspicious for pulmonary edema/heart failure. There is no significant discrepancy when compared to the overnight Teleradiology report. Dictated by: Alvin Banks M.D. on 03/31/2021 at 7:46 Approved by: Alvin Banks M.D. on 03/31/2021 at 7:47
[2021-03-31] MEDS: FUROSEMIDE 40 MG/4 ML VIAL IV ×2 (06:31→11:10)
[2021-03-31 06:42] LABS: Add Manual Diff / Slide Review NO; Basophils Absolute Auto 200 /uL (0-100); Basophils Percent Auto 0.8 % (0-2); Eosinophils Absolute Auto 200 /uL (0-450); Eosinophils Percent Auto 0.8 % (2-4); Hemoglobin 13.5 g/dL (12.0-16.0); Lymphocytes Absolute Auto 2000 /uL (1100-4500); Lymphocytes Percent Auto 8.8 % (25-40); Mean Corpuscular HGB Conc 32.1 % (30-36); Mean Corpuscular Hemoglobin 28.5 PG (26-34); Monocytes Absolute Auto 800 /uL (0-900); Monocytes Percent Auto 3.6 % (3-14); Neutrophils Absolute Auto 19300 /uL (1500-7000); Platelet Count 367 X10^3/uL (150-400); Red Blood Cell Count 4.72 X10^6/uL (4.0-5.2); Red Cell Distribution Width 15.1 % (11.6-14.8); White Blood Cell Count 22.5 X10^3/uL (4.5-11.0)
[2021-03-31 06:45] LABS: COVID19 -Nasal RAPID Negative (Negative)
--- NOTE | 2021-03-31 06:53 | ED.SOB ---
HPI - SOB/Dyspnea <Lexi Smith DO - Last Filed: 04/01/21 00:09> General Chief Complaint: Shortness of Breath/Dyspnea Stated Complaint: difficulty breathing Time Seen by Provider: 03/31/21 06:24 Source: patient Mode of arrival: Ambulatory Limitations: no limitations History of Present Illness HPI Narrative: Patient is a 66-year-old female with history of Type 2 diabetes, peripheral neuropathy, coronary artery disease, status post 2 vessel CABG in 2013, status post coronary artery stenting in April 2020 in, complicated by stent occlusion, history of CEA, paroxysmal atrial fibrillation on Eliquis, CKD presenting today with increasing shortness of breath. She was discharged from the hospital on March 24 after foot developing an infection. Looks like it was treated conservatively with antibiotics. She states that she started having some difficulty breathing as soon as she left the hospital hip progressively got worse. This evening he is unable to lay flat causing severe shortness of breath. She occasionally has a cough. She said shortness of breath with exertion as well. No chest pain. She denies any fever or chills. Related Data Home Medications Medication Instructions Recorded Confirmed apixaban 5 mg tablet (Eliquis) 5 mg PO BID 10/17/20 03/31/21 clopidogrel 75 mg tablet 75 mg PO DAILY 03/23/21 03/31/21 empagliflozin 10 mg tablet 10 mg PO DAILY 03/23/21 03/31/21 (Jardiance) losartan 50 mg tablet 50 mg PO BEDTIME 03/23/21 03/31/21 nitroglycerin 0.4 mg sublingual 0.4 mg SUBLINGUAL Q5M PRN 03/23/21 03/31/21 tablet pregabalin 200 mg capsule 200 mg PO TID 03/23/21 03/31/21 rosuvastatin 40 mg tablet 40 mg PO DAILY 03/23/21 03/31/21 metoprolol succinate 25 mg 50 mg PO DAILY 03/31/21 03/31/21 tablet,extended release 24 hr Allergies Allergy/AdvReac Type Severity Reaction Status Date / Time Penicillins [PENICILLINS] Allergy Severe Hives Verified 03/22/21 13:52 Sulfa (Sulfonamide Allergy Severe Hives Verified 03/22/21 13:51 Antibiotics) [SULFA (SULFONAMIDE ANTIBIOTICS)] Review of Systems <DO Destiny Trinidad Last Filed: 04/01/21 00:09> Review of Systems Narrative: GENERAL: Denies chills, fatigue, malaise, fever, sweats, travel HEENT: Denies sinus pain, ear pain, sore throat, difficulty swallowing, neck pain RESPIRATORY: See HPI CARDIOVASCULAR: Denies chest pain, palpitations, orthopnea, edema GASTROINTESTINAL: Denies nausea, vomiting, abdominal pain, diarrhea, constipation, melena. : Denies dysuria, frequency, incontinence, hematuria, urinary retention, flank pain. MUSCULOSKELETAL: Denies weakness, joint pain, or bony pain SKIN: No rash, no erythema, no pruritus NEUROLOGIC: Denies weakness, dizziness, headache, numbness, change in speech, confusion PSYCHIATRIC: No concerning psychosocial issues. 12 point review of systems is negative except for those stated above and HPI Patient History <Lexi Smith DO - Last Filed: 04/01/21 00:09> Medical History CAD (coronary artery disease) Diabetes Hyperlipidemia (06/11/14) Neuropathy Obstructive sleep apnea (08/13/17) Paroxysmal atrial fibrillation (08/13/17) Peripheral vascular disease (05/31/17) Spinal stenosis in cervical region Spinal stenosis of lumbar region Surgical History H/O carotid endarterectomy H/O cervical spine surgery History of lumbar surgery Hx of CABG Social History household members: spouse Smoking Status: Current every day smoker Smoking Status: Current every day smoker alcohol intake frequency: holidays/special occasions only Substance Use Type: marijuana Exam <Lexi Smith DO - Last Filed: 04/01/21 00:09> Initial Vital Signs Initial Vital Signs: Vital Signs Pulse Rate 95 H 03/31/21 06:32 Pulse Oximetry 96 03/31/21 06:32 GENERAL: Alert 66-year-old female appears in respiratory distress HEENT: Head atraumatic,EOMI, pupils reactive, face symmetric, moist mucous membranes CARDIOVASCULAR: Tachycardic regular no murmurs RESPIRATORY: Tachypnea no wheezing rales at bases ABDOMEN: Soft, nontender. Normoactive bowel sounds all 4 quadrants. No guarding or rebound. EXTREMITIES: Normal range of motion, no clubbing or edema. Neurovascularly intact NEUROLOGICAL: Alert and oriented x4.Normal gait and speech. SKIN: Warm, dry, no laceration, no petechiae, no rashes or lesions. <Emilio Clements DO - Last Filed: 03/31/21 16:22> Initial Vital Signs Initial Vital Signs: Vital Signs Pulse Rate 95 H 03/31/21 06:32 Pulse Oximetry 96 03/31/21 06:32 Course <Lexi Smith DO - Last Filed: 04/01/21 00:09> Orders Ordered: Discontinued Medications Digoxin (Digoxin 500 Mcg/2 Ml Ampul) 250 mcg IV NOW ONE Stop: 03/31/21 13:48 Last Admin: 03/31/21 14:02 Dose: 250 mcg Documented by: SHELLEY Furosemide (Furosemide 40 Mg/4 Ml Vial) 40 mg IV NOW ONE Stop: 03/31/21 06:25 Last Admin: 03/31/21 06:31 Dose: 40 mg Documented by: EDDIE Furosemide (Furosemide 40 Mg/4 Ml Vial) 40 mg IV NOW ONE Stop: 03/31/21 11:05 Last Admin: 03/31/21 11:10 Dose: 40 mg Documented by: SHELLEY Azithromycin 500 mg/ Dextrose 250 mls @ 250 mls/hr IV NOW ONE Stop: 03/31/21 07:33 Last Admin: 03/31/21 08:32 Dose: Not Given Documented by: THOMAS Metoprolol Tartrate (Metoprolol Tartrate 5 Mg/5 Ml Inj) 5 mg IV NOW ONE Stop: 03/31/21 08:36 Last Admin: 03/31/21 09:02 Dose: 5 mg Documented by: SHELLEY Metoprolol Tartrate (Metoprolol Tartrate 5 Mg/5 Ml Inj) 5 mg IV NOW ONE Stop: 03/31/21 09:33 Last Admin: 03/31/21 09:38 Dose: 5 mg Documented by: SHELLEY Metoprolol Tartrate (Metoprolol Tartrate 5 Mg/5 Ml Inj) 5 mg IV NOW ONE Stop: 03/31/21 10:22 Last Admin: 03/31/21 13:00 Dose: Not Given Documented by: SHELLEY Vital Signs Vital signs: Vital Signs - 8 hr 03/31/21 07:30 03/31/21 08:00 03/31/21 08:30 Temperature Pulse Rate 99 H 105 H 147 H Respiratory Rate 24 20 23 Blood Pressure 137/96 H 115/82 118/74 Pulse Oximetry 97 96 93 03/31/21 09:00 03/31/21 09:30 03/31/21 09:31 Temperature Pulse Rate 147 H 129 H 131 H Respiratory Rate 23 Blood Pressure 123/70 103/52 L Pulse Oximetry 94 95 96 03/31/21 10:00 03/31/21 10:23 03/31/21 10:30 Temperature 97.0 F L Pulse Rate 125 H 134 H Respiratory Rate 25 H 19 Blood Pressure 109/66 102/70 Pulse Oximetry 97 96 03/31/21 11:00 03/31/21 11:30 03/31/21 11:31 Temperature Pulse Rate 137 H 136 H 132 H Respiratory Rate 23 21 28 H Blood Pressure 93/61 117/75 Pulse Oximetry 95 97 97 03/31/21 12:00 03/31/21 12:30 03/31/21 12:40 Temperature Pulse Rate 131 H 137 H 132 H Respiratory Rate 24 19 29 H Blood Pressure 106/68 100/64 97/66 Pulse Oximetry 94 96 96 03/31/21 12:45 03/31/21 12:50 03/31/21 12:55 Temperature Pulse Rate 133 H 131 H 132 H Respiratory Rate 28 H 18 19 Blood Pressure 111/63 99/62 95/73 Pulse Oximetry 95 94 95 03/31/21 13:00 03/31/21 13:01 03/31/21 13:05 Temperature Pulse Rate 132 H 136 H 133 H Respiratory Rate 39 H 34 H 15 Blood Pressure 78/54 L 101/60 Pulse Oximetry 94 96 98 03/31/21 13:10 03/31/21 13:16 03/31/21 13:20 Temperature Pulse Rate 132 H 131 H 131 H Respiratory Rate 16 21 21 Blood Pressure 109/79 120/67 105/57 L Pulse Oximetry 94 92 93 03/31/21 13:25 03/31/21 13:30 03/31/21 13:35 Temperature Pulse Rate 131 H 131 H 135 H Respiratory Rate 26 H 20 13 Blood Pressure 107/58 L 108/57 L 106/59 L Pulse Oximetry 96 94 03/31/21 13:41 03/31/21 13:45 03/31/21 13:50 Temperature Pulse Rate 132 H 131 H 134 H Respiratory Rate 11 L 17 18 Blood Pressure 115/71 102/61 102/78 Pulse Oximetry 93 94 92 03/31/21 13:55 03/31/21 14:00 03/31/21 14:01 Temperature Pulse Rate 133 H 134 H 135 H Respiratory Rate 22 24 23 Blood Pressure 87/63 L 105/62 Pulse Oximetry 93 95 95 03/31/21 14:02 03/31/21 14:05 03/31/21 14:10 Temperature Pulse Rate 140 H 133 H 137 H Respiratory Rate 16 17 Blood Pressure 105/62 110/57 L 117/56 L Pulse Oximetry 95 95 03/31/21 14:16 03/31/21 14:21 03/31/21 14:26 Temperature Pulse Rate 132 H 133 H 131 H Respiratory Rate 23 46 H 26 H Blood Pressure 107/63 109/56 L 109/56 L Pulse Oximetry 95 95 97 03/31/21 14:30 03/31/21 14:31 03/31/21 14:36 Temperature Pulse Rate 133 H 131 H 136 H Respiratory Rate 27 H 33 H 28 H Blood Pressure 121/71 116/76 Pulse Oximetry 96 97 96 03/31/21 14:40 03/31/21 14:45 03/31/21 14:50 Temperature Pulse Rate 137 H 135 H 135 H Respiratory Rate 18 21 16 Blood Pressure 135/79 116/57 L 95/67 Pulse Oximetry 96 95 94 <Emilio Clements DO - Last Filed: 03/31/21 16:22> Orders Ordered: Discontinued Medications Digoxin (Digoxin 500 Mcg/2 Ml Ampul) 250 mcg IV NOW ONE Stop: 03/31/21 13:48 Last Admin: 03/31/21 14:02 Dose: 250 mcg Documented by: SHELLEY Furosemide (Furosemide 40 Mg/4 Ml Vial) 40 mg IV NOW ONE Stop: 03/31/21 06:25 Last Admin: 03/31/21 06:31 Dose: 40 mg Documented by: EDDIE Furosemide (Furosemide 40 Mg/4 Ml Vial) 40 mg IV NOW ONE Stop: 03/31/21 11:05 Last Admin: 03/31/21 11:10 Dose: 40 mg Documented by: SHELLEY Azithromycin 500 mg/ Dextrose 250 mls @ 250 mls/hr IV NOW ONE Stop: 03/31/21 07:33 Last Admin: 03/31/21 08:32 Dose: Not Given Documented by: THOMAS Metoprolol Tartrate (Metoprolol Tartrate 5 Mg/5 Ml Inj) 5 mg IV NOW ONE Stop: 03/31/21 08:36 Last Admin: 03/31/21 09:02 Dose: 5 mg Documented by: SHELLEY Metoprolol Tartrate (Metoprolol Tartrate 5 Mg/5 Ml Inj) 5 mg IV NOW ONE Stop: 03/31/21 09:33 Last Admin: 03/31/21 09:38 Dose: 5 mg Documented by: SHELLEY Metoprolol Tartrate (Metoprolol Tartrate 5 Mg/5 Ml Inj) 5 mg IV NOW ONE Stop: 03/31/21 10:22 Last Admin: 03/31/21 13:00 Dose: Not Given Documented by: SHELLEY Vital Signs Vital signs: Vital Signs - 8 hr 03/31/21 07:30 03/31/21 08:00 03/31/21 08:30 Temperature Pulse Rate 99 H 105 H 147 H Respiratory Rate 24 20 23 Blood Pressure 137/96 H 115/82 118/74 Pulse Oximetry 97 96 93 03/31/21 09:00 03/31/21 09:30 03/31/21 09:31 Temperature Pulse Rate 147 H 129 H 131 H Respiratory Rate 23 Blood Pressure 123/70 103/52 L Pulse Oximetry 94 95 96 03/31/21 10:00 03/31/21 10:23 03/31/21 10:30 Temperature 97.0 F L Pulse Rate 125 H 134 H Respiratory Rate 25 H 19 Blood Pressure 109/66 102/70 Pulse Oximetry 97 96 03/31/21 11:00 03/31/21 11:30 03/31/21 11:31 Temperature Pulse Rate 137 H 136 H 132 H Respiratory Rate 23 21 28 H Blood Pressure 93/61 117/75 Pulse Oximetry 95 97 97 03/31/21 12:00 03/31/21 12:30 03/31/21 12:40 Temperature Pulse Rate 131 H 137 H 132 H Respiratory Rate 24 19 29 H Blood Pressure 106/68 100/64 97/66 Pulse Oximetry 94 96 96 03/31/21 12:45 03/31/21 12:50 03/31/21 12:55 Temperature Pulse Rate 133 H 131 H 132 H Respiratory Rate 28 H 18 19 Blood Pressure 111/63 99/62 95/73 Pulse Oximetry 95 94 95 03/31/21 13:00 03/31/21 13:01 03/31/21 13:05 Temperature Pulse Rate 132 H 136 H 133 H Respiratory Rate 39 H 34 H 15 Blood Pressure 78/54 L 101/60 Pulse Oximetry 94 96 98 03/31/21 13:10 03/31/21 13:16 03/31/21 13:20 Temperature Pulse Rate 132 H 131 H 131 H Respiratory Rate 16 21 21 Blood Pressure 109/79 120/67 105/57 L Pulse Oximetry 94 92 93 03/31/21 13:25 03/31/21 13:30 03/31/21 13:35 Temperature Pulse Rate 131 H 131 H 135 H Respiratory Rate 26 H 20 13 Blood Pressure 107/58 L 108/57 L 106/59 L Pulse Oximetry 96 94 03/31/21 13:41 03/31/21 13:45 03/31/21 13:50 Temperature Pulse Rate 132 H 131 H 134 H Respiratory Rate 11 L 17 18 Blood Pressure 115/71 102/61 102/78 Pulse Oximetry 93 94 92 03/31/21 13:55 03/31/21 14:00 03/31/21 14:01 Temperature Pulse Rate 133 H 134 H 135 H Respiratory Rate 22 24 23 Blood Pressure 87/63 L 105/62 Pulse Oximetry 93 95 95 03/31/21 14:02 03/31/21 14:05 03/31/21 14:10 Temperature Pulse Rate 140 H 133 H 137 H Respiratory Rate 16 17 Blood Pressure 105/62 110/57 L 117/56 L Pulse Oximetry 95 95 03/31/21 14:16 03/31/21 14:21 03/31/21 14:26 Temperature Pulse Rate 132 H 133 H 131 H Respiratory Rate 23 46 H 26 H Blood Pressure 107/63 109/56 L 109/56 L Pulse Oximetry 95 95 97 03/31/21 14:30 03/31/21 14:31 03/31/21 14:36 Temperature Pulse Rate 133 H 131 H 136 H Respiratory Rate 27 H 33 H 28 H Blood Pressure 121/71 116/76 Pulse Oximetry 96 97 96 03/31/21 14:40 03/31/21 14:45 03/31/21 14:50 Temperature Pulse Rate 137 H 135 H 135 H Respiratory Rate 18 21 16 Blood Pressure 135/79 116/57 L 95/67 Pulse Oximetry 96 95 94 MDM - SOB/Dyspnea <Lexi Smith, DO - Last Filed: 04/01/21 00:09> Lab Data Result diagrams: 03/31/21 06:30 03/31/21 06:30 Labs: Lab Results 03/31/21 03/31/21 03/31/21 Range/Units 06:20 06:30 06:30 WBC 22.5 H (4.5-11.0) X10^3/uL RBC 4.72 (4.0-5.2) X10^6/uL Hgb 13.5 (12.0-16.0) g/dL Hct 42.0 (36-46) % MCV 89.0 (80-100) fL MCH 28.5 (26-34) PG MCHC 32.1 (30-36) % RDW 15.1 H (11.6-14.8) % Plt Count 367 (150-400) X10^3/uL Neut % (Auto) 86.0 H (50-75) % Lymph % (Auto) 8.8 L (25-40) % [place] % (Auto) 3.6 (3-14) % Eos % (Auto) 0.8 L (2-4) % Baso % (Auto) 0.8 (0-2) % Neut # (Auto) 98400 H (4657-3191) /uL Lymph # (Auto) 2000 (1451-3234) /uL [place] # (Auto) 800 (0-900) /uL Eos # (Auto) 200 (0-450) /uL Baso # (Auto) 200 H (0-100) /uL PT (10.1-12.7) SECONDS INR (0.9-1.3) APTT (26.4-36.2) SECONDS Sodium (137-145) mmol/L Potassium (3.4-5.1) mmol/L Chloride (98-107) mmol/L Carbon Dioxide (22-32) mmol/L BUN (7-17) mg/dL Creatinine (0.52-1.04) mg/dL Estimated GFR (>60) mL/min BUN/Creatinine Ratio (6-22) Glucose (80-110) mg/dL Lactate (0.7-2.1) mmol/L Calcium (8.4-10.2) mg/dL Magnesium (1.6-2.3) mg/dL Total Bilirubin (0.2-1.3) mg/dL AST (14-36) IU/L ALT (<35) IU/L Alkaline Phosphatase (38-126) U/L Total Creatine Kinase (30-135) U/L CK-MB (CK-2) (<2.37) ng/mL CK-MB (CK-2) Rel Index (1.5-5.0) % Troponin I (0.01-0.034) ng/mL NT-Pro-B Natriuret Pep 5330 H (<125) pg/mL Total Protein (6.3-8.2) g/dL Albumin (3.5-5.0) g/dL Globulin (1.7-4.1) g/dL Albumin/Globulin Ratio (1.0-2.8) Procalcitonin 0.06 (<0.5) ng/mL Urine RBC (0-5/HPF) Urine WBC (0-5/HPF) Urine Bacteria (None) Ur Culture Indicated? Micro UA Comment Digoxin (0.8-2.0) ng/mL SARS-CoV-2 (PCR) Negative (Negative) 03/31/21 03/31/21 03/31/21 Range/Units 06:30 06:30 06:30 WBC (4.5-11.0) X10^3/uL RBC (4.0-5.2) X10^6/uL Hgb (12.0-16.0) g/dL Hct (36-46) % MCV (80-100) fL MCH (26-34) PG MCHC (30-36) % RDW (11.6-14.8) % Plt Count (150-400) X10^3/uL Neut % (Auto) (50-75) % Lymph % (Auto) (25-40) % [place] % (Auto) (3-14) % Eos % (Auto) (2-4) % Baso % (Auto) (0-2) % Neut # (Auto) (4167-1305) /uL Lymph # (Auto) (5801-3473) /uL [place] # (Auto) (0-900) /uL Eos # (Auto) (0-450) /uL Baso # (Auto) (0-100) /uL PT (10.1-12.7) SECONDS INR (0.9-1.3) APTT 34 (26.4-36.2) SECONDS Sodium 145 (137-145) mmol/L Potassium 3.7 (3.4-5.1) mmol/L Chloride 110 H (98-107) mmol/L Carbon Dioxide 27 (22-32) mmol/L BUN 11 (7-17) mg/dL Creatinine 1.05 H (0.52-1.04) mg/dL Estimated GFR 52.1 L (>60) mL/min BUN/Creatinine Ratio 10.5 (6-22) Glucose 198 H (80-110) mg/dL Lactate 3.0 H (0.7-2.1) mmol/L Calcium 9.0 (8.4-10.2) mg/dL Magnesium 2.0 (1.6-2.3) mg/dL Total Bilirubin 0.8 (0.2-1.3) mg/dL AST 46 H (14-36) IU/L ALT 53 H (<35) IU/L Alkaline Phosphatase 121 D (38-126) U/L Total Creatine Kinase 304 H (30-135) U/L CK-MB (CK-2) 3.48 H (<2.37) ng/mL CK-MB (CK-2) Rel Index 1.1 L (1.5-5.0) % Troponin I 0.699 H* (0.01-0.034) ng/mL NT-Pro-B Natriuret Pep (<125) pg/mL Total Protein 8.0 (6.3-8.2) g/dL Albumin 4.1 (3.5-5.0) g/dL Globulin 3.9 (1.7-4.1) g/dL Albumin/Globulin Ratio 1.1 (1.0-2.8) Procalcitonin (<0.5) ng/mL Urine RBC (0-5/HPF) Urine WBC (0-5/HPF) Urine Bacteria (None) Ur Culture Indicated? Micro UA Comment Digoxin (0.8-2.0) ng/mL SARS-CoV-2 (PCR) (Negative) 03/31/21 03/31/21 03/31/21 Range/Units 06:30 06:30 09:28 WBC (4.5-11.0) X10^3/uL RBC (4.0-5.2) X10^6/uL Hgb (12.0-16.0) g/dL Hct (36-46) % MCV (80-100) fL MCH (26-34) PG MCHC (30-36) % RDW (11.6-14.8) % Plt Count (150-400) X10^3/uL Neut % (Auto) (50-75) % Lymph % (Auto) (25-40) % [place] % (Auto) (3-14) % Eos % (Auto) (2-4) % Baso % (Auto) (0-2) % Neut # (Auto) (1764-3563) /uL Lymph # (Auto) (8162-3451) /uL [place] # (Auto) (0-900) /uL Eos # (Auto) (0-450) /uL Baso # (Auto) (0-100) /uL PT 15.8 H D (10.1-12.7) SECONDS INR 1.4 H (0.9-1.3) APTT (26.4-36.2) SECONDS Sodium (137-145) mmol/L Potassium (3.4-5.1) mmol/L Chloride (98-107) mmol/L Carbon Dioxide (22-32) mmol/L BUN (7-17) mg/dL Creatinine (0.52-1.04) mg/dL Estimated GFR (>60) mL/min BUN/Creatinine Ratio (6-22) Glucose (80-110) mg/dL Lactate (0.7-2.1) mmol/L Calcium (8.4-10.2) mg/dL Magnesium (1.6-2.3) mg/dL Total Bilirubin (0.2-1.3) mg/dL AST (14-36) IU/L ALT (<35) IU/L Alkaline Phosphatase (38-126) U/L Total Creatine Kinase (30-135) U/L CK-MB (CK-2) (<2.37) ng/mL CK-MB (CK-2) Rel Index (1.5-5.0) % Troponin I 2.510 H* (0.01-0.034) ng/mL NT-Pro-B Natriuret Pep (<125) pg/mL Total Protein (6.3-8.2) g/dL Albumin (3.5-5.0) g/dL Globulin (1.7-4.1) g/dL Albumin/Globulin Ratio (1.0-2.8) Procalcitonin (<0.5) ng/mL Urine RBC (0-5/HPF) Urine WBC (0-5/HPF) Urine Bacteria (None) Ur Culture Indicated? Micro UA Comment Digoxin < 0.4 L (0.8-2.0) ng/mL SARS-CoV-2 (PCR) (Negative) 03/31/21 03/31/21 Range/Units 09:28 11:17 WBC (4.5-11.0) X10^3/uL RBC (4.0-5.2) X10^6/uL Hgb (12.0-16.0) g/dL Hct (36-46) % MCV (80-100) fL MCH (26-34) PG MCHC (30-36) % RDW (11.6-14.8) % Plt Count (150-400) X10^3/uL Neut % (Auto) (50-75) % Lymph % (Auto) (25-40) % [place] % (Auto) (3-14) % Eos % (Auto) (2-4) % Baso % (Auto) (0-2) % Neut # (Auto) (3149-3963) /uL Lymph # (Auto) (3623-7617) /uL [place] # (Auto) (0-900) /uL Eos # (Auto) (0-450) /uL Baso # (Auto) (0-100) /uL PT (10.1-12.7) SECONDS INR (0.9-1.3) APTT (26.4-36.2) SECONDS Sodium (137-145) mmol/L Potassium (3.4-5.1) mmol/L Chloride (98-107) mmol/L Carbon Dioxide (22-32) mmol/L BUN (7-17) mg/dL Creatinine (0.52-1.04) mg/dL Estimated GFR (>60) mL/min BUN/Creatinine Ratio (6-22) Glucose (80-110) mg/dL Lactate 1.4 (0.7-2.1) mmol/L Calcium (8.4-10.2) mg/dL Magnesium (1.6-2.3) mg/dL Total Bilirubin (0.2-1.3) mg/dL AST (14-36) IU/L ALT (<35) IU/L Alkaline Phosphatase (38-126) U/L Total Creatine Kinase (30-135) U/L CK-MB (CK-2) (<2.37) ng/mL CK-MB (CK-2) Rel Index (1.5-5.0) % Troponin I (0.01-0.034) ng/mL NT-Pro-B Natriuret Pep (<125) pg/mL Total Protein (6.3-8.2) g/dL Albumin (3.5-5.0) g/dL Globulin (1.7-4.1) g/dL Albumin/Globulin Ratio (1.0-2.8) Procalcitonin (<0.5) ng/mL Urine RBC None seen (0-5/HPF) Urine WBC None seen (0-5/HPF) Urine Bacteria None seen (None) Ur Culture Indicated? Cult not indicated Micro UA Comment Microscopic normal Digoxin (0.8-2.0) ng/mL SARS-CoV-2 (PCR) (Negative) Urine Dip Bedside Urine Glucose 1000 mg/dl Bedside Urine Bilirubin - Negative Bedside Urine Ketone - Negative Urine Specific [place] 1.015 Bedside Urine Occult Blood + Bedside Urine pH 5.5 Bedside Urine Protein - Negative Bedside Urine Urobilinogen +/- 1mg Bedside Urine Nitrite - Negative Bedside Urine Leukocytes - Negative Esterase MDM Narrative Medical decision making narrative: Signed out to Dr. Clements.Labs pending. Dr clements: Received turned over. Reviewed patient's history and physical. And labs. Upon arrival patient was not in atrial fibrillation. She developed atrial fibrillation during her stay here. She had not taken her morning medications. She was given her morning medications see if this did not improve her symptoms. Her presentation today is consistent with CHF. Chest x-ray is consistent with pulmonary edema. BNP is also elevated. She was given Lasix. This did improve her symptoms significantly. Were able to wean her oxygen by nasal cannula. Afebrile. Low suspicion for pneumonia. Does have an elevated white blood cell count but is also on antibiotics for a right foot infection. I did remove her boot and sock from her right foot. There is no redness in the area. There is a dime-size ulceration on the bottom of her foot that appears very well. I did not feel given her presentation that she was septic and so antibiotics were held. She did have an elevated troponin. her Eliquis and clopidogrel were taken this morning. We will hold on heparin. I did consider other etiologies such as pulmonary embolism but she has been on her Eliquis on a daily basis and I feel that her presentation today is more consistent with CHF. I also have a higher suspicion that her elevated troponin is related to her CHF as well. We attempted to rate control her with her daily medications. She was also given multiple aliquots of metoprolol. These only improved her symptoms slightly. She was given 1 dose of digoxin. I did discuss cardioversion with her. We discussed the risks and benefits this. She states that she has had multiple attempts of cardioversion in the past and none of which have ever been successful. Given her improvement of respiratory status, lack of chest discomfort we will hold on cardioversion for now. I did discuss the case with Dr. Price with Internal Medicine at [facility] who accepts the patient transport. Patient is stable for transport. Discussed the need for transport with the patient. They all expressed understanding and agreement. <Emilio Clements, DO - Last Filed: 03/31/21 16:22> Lab Data Attestation: I reviewed the patient's lab results. Labs: Lab Results 03/31/21 03/31/21 03/31/21 Range/Units 06:20 06:30 06:30 WBC 22.5 H (4.5-11.0) X10^3/uL RBC 4.72 (4.0-5.2) X10^6/uL Hgb 13.5 (12.0-16.0) g/dL Hct 42.0 (36-46) % MCV 89.0 (80-100) fL MCH 28.5 (26-34) PG MCHC 32.1 (30-36) % RDW 15.1 H (11.6-14.8) % Plt Count 367 (150-400) X10^3/uL Neut % (Auto) 86.0 H (50-75) % Lymph % (Auto) 8.8 L (25-40) % [place] % (Auto) 3.6 (3-14) % Eos % (Auto) 0.8 L (2-4) % Baso % (Auto) 0.8 (0-2) % Neut # (Auto) 83485 H (2785-9964) /uL Lymph # (Auto) 2000 (2208-7697) /uL [place] # (Auto) 800 (0-900) /uL Eos # (Auto) 200 (0-450) /uL Baso # (Auto) 200 H (0-100) /uL PT (10.1-12.7) SECONDS INR (0.9-1.3) APTT (26.4-36.2) SECONDS Sodium (137-145) mmol/L Potassium (3.4-5.1) mmol/L Chloride (98-107) mmol/L Carbon Dioxide (22-32) mmol/L BUN (7-17) mg/dL Creatinine (0.52-1.04) mg/dL Estimated GFR (>60) mL/min BUN/Creatinine Ratio (6-22) Glucose (80-110) mg/dL Lactate (0.7-2.1) mmol/L Calcium (8.4-10.2) mg/dL Magnesium (1.6-2.3) mg/dL Total Bilirubin (0.2-1.3) mg/dL AST (14-36) IU/L ALT (<35) IU/L Alkaline Phosphatase (38-126) U/L Total Creatine Kinase (30-135) U/L CK-MB (CK-2) (<2.37) ng/mL CK-MB (CK-2) Rel Index (1.5-5.0) % Troponin I (0.01-0.034) ng/mL NT-Pro-B Natriuret Pep 5330 H (<125) pg/mL Total Protein (6.3-8.2) g/dL Albumin (3.5-5.0) g/dL Globulin (1.7-4.1) g/dL Albumin/Globulin Ratio (1.0-2.8) Procalcitonin 0.06 (<0.5) ng/mL Urine RBC (0-5/HPF) Urine WBC (0-5/HPF) Urine Bacteria (None) Ur Culture Indicated? Micro UA Comment Digoxin (0.8-2.0) ng/mL SARS-CoV-2 (PCR) Negative (Negative) 03/31/21 03/31/21 03/31/21 Range/Units 06:30 06:30 06:30 WBC (4.5-11.0) X10^3/uL RBC (4.0-5.2) X10^6/uL Hgb (12.0-16.0) g/dL Hct (36-46) % MCV (80-100) fL MCH (26-34) PG MCHC (30-36) % RDW (11.6-14.8) % Plt Count (150-400) X10^3/uL Neut % (Auto) (50-75) % Lymph % (Auto) (25-40) % [place] % (Auto) (3-14) % Eos % (Auto) (2-4) % Baso % (Auto) (0-2) % Neut # (Auto) (4391-8843) /uL Lymph # (Auto) (5121-3085) /uL [place] # (Auto) (0-900) /uL Eos # (Auto) (0-450) /uL Baso # (Auto) (0-100) /uL PT (10.1-12.7) SECONDS INR (0.9-1.3) APTT 34 (26.4-36.2) SECONDS Sodium 145 (137-145) mmol/L Potassium 3.7 (3.4-5.1) mmol/L Chloride 110 H (98-107) mmol/L Carbon Dioxide 27 (22-32) mmol/L BUN 11 (7-17) mg/dL Creatinine 1.05 H (0.52-1.04) mg/dL Estimated GFR 52.1 L (>60) mL/min BUN/Creatinine Ratio 10.5 (6-22) Glucose 198 H (80-110) mg/dL Lactate 3.0 H (0.7-2.1) mmol/L Calcium 9.0 (8.4-10.2) mg/dL Magnesium 2.0 (1.6-2.3) mg/dL Total Bilirubin 0.8 (0.2-1.3) mg/dL AST 46 H (14-36) IU/L ALT 53 H (<35) IU/L Alkaline Phosphatase 121 D (38-126) U/L Total Creatine Kinase 304 H (30-135) U/L CK-MB (CK-2) 3.48 H (<2.37) ng/mL CK-MB (CK-2) Rel Index 1.1 L (1.5-5.0) % Troponin I 0.699 H* (0.01-0.034) ng/mL NT-Pro-B Natriuret Pep (<125) pg/mL Total Protein 8.0 (6.3-8.2) g/dL Albumin 4.1 (3.5-5.0) g/dL Globulin 3.9 (1.7-4.1) g/dL Albumin/Globulin Ratio 1.1 (1.0-2.8) Procalcitonin (<0.5) ng/mL Urine RBC (0-5/HPF) Urine WBC (0-5/HPF) Urine Bacteria (None) Ur Culture Indicated? Micro UA Comment Digoxin (0.8-2.0) ng/mL SARS-CoV-2 (PCR) (Negative) 03/31/21 03/31/21 03/31/21 Range/Units 06:30 06:30 09:28 WBC (4.5-11.0) X10^3/uL RBC (4.0-5.2) X10^6/uL Hgb (12.0-16.0) g/dL Hct (36-46) % MCV (80-100) fL MCH (26-34) PG MCHC (30-36) % RDW (11.6-14.8) % Plt Count (150-400) X10^3/uL Neut % (Auto) (50-75) % Lymph % (Auto) (25-40) % [place] % (Auto) (3-14) % Eos % (Auto) (2-4) % Baso % (Auto) (0-2) % Neut # (Auto) (9668-3856) /uL Lymph # (Auto) (3970-6210) /uL [place] # (Auto) (0-900) /uL Eos # (Auto) (0-450) /uL Baso # (Auto) (0-100) /uL PT 15.8 H D (10.1-12.7) SECONDS INR 1.4 H (0.9-1.3) APTT (26.4-36.2) SECONDS Sodium (137-145) mmol/L Potassium (3.4-5.1) mmol/L Chloride (98-107) mmol/L Carbon Dioxide (22-32) mmol/L BUN (7-17) mg/dL Creatinine (0.52-1.04) mg/dL Estimated GFR (>60) mL/min BUN/Creatinine Ratio (6-22) Glucose (80-110) mg/dL Lactate (0.7-2.1) mmol/L Calcium (8.4-10.2) mg/dL Magnesium (1.6-2.3) mg/dL Total Bilirubin (0.2-1.3) mg/dL AST (14-36) IU/L ALT (<35) IU/L Alkaline Phosphatase (38-126) U/L Total Creatine Kinase (30-135) U/L CK-MB (CK-2) (<2.37) ng/mL CK-MB (CK-2) Rel Index (1.5-5.0) % Troponin I 2.510 H* (0.01-0.034) ng/mL NT-Pro-B Natriuret Pep (<125) pg/mL Total Protein (6.3-8.2) g/dL Albumin (3.5-5.0) g/dL Globulin (1.7-4.1) g/dL Albumin/Globulin Ratio (1.0-2.8) Procalcitonin (<0.5) ng/mL Urine RBC (0-5/HPF) Urine WBC (0-5/HPF) Urine Bacteria (None) Ur Culture Indicated? Micro UA Comment Digoxin < 0.4 L (0.8-2.0) ng/mL SARS-CoV-2 (PCR) (Negative) 03/31/21 03/31/21 Range/Units 09:28 11:17 WBC (4.5-11.0) X10^3/uL RBC (4.0-5.2) X10^6/uL Hgb (12.0-16.0) g/dL Hct (36-46) % MCV (80-100) fL MCH (26-34) PG MCHC (30-36) % RDW (11.6-14.8) % Plt Count (150-400) X10^3/uL Neut % (Auto) (50-75) % Lymph % (Auto) (25-40) % [place] % (Auto) (3-14) % Eos % (Auto) (2-4) % Baso % (Auto) (0-2) % Neut # (Auto) (8781-8813) /uL Lymph # (Auto) (8849-3555) /uL [place] # (Auto) (0-900) /uL Eos # (Auto) (0-450) /uL Baso # (Auto) (0-100) /uL PT (10.1-12.7) SECONDS INR (0.9-1.3) APTT (26.4-36.2) SECONDS Sodium (137-145) mmol/L Potassium (3.4-5.1) mmol/L Chloride (98-107) mmol/L Carbon Dioxide (22-32) mmol/L BUN (7-17) mg/dL Creatinine (0.52-1.04) mg/dL Estimated GFR (>60) mL/min BUN/Creatinine Ratio (6-22) Glucose (80-110) mg/dL Lactate 1.4 (0.7-2.1) mmol/L Calcium (8.4-10.2) mg/dL Magnesium (1.6-2.3) mg/dL Total Bilirubin (0.2-1.3) mg/dL AST (14-36) IU/L ALT (<35) IU/L Alkaline Phosphatase (38-126) U/L Total Creatine Kinase (30-135) U/L CK-MB (CK-2) (<2.37) ng/mL CK-MB (CK-2) Rel Index (1.5-5.0) % Troponin I (0.01-0.034) ng/mL NT-Pro-B Natriuret Pep (<125) pg/mL Total Protein (6.3-8.2) g/dL Albumin (3.5-5.0) g/dL Globulin (1.7-4.1) g/dL Albumin/Globulin Ratio (1.0-2.8) Procalcitonin (<0.5) ng/mL Urine RBC None seen (0-5/HPF) Urine WBC None seen (0-5/HPF) Urine Bacteria None seen (None) Ur Culture Indicated? Cult not indicated Micro UA Comment Microscopic normal Digoxin (0.8-2.0) ng/mL SARS-CoV-2 (PCR) (Negative) Urine Dip Bedside Urine Glucose 1000 mg/dl Bedside Urine Bilirubin - Negative Bedside Urine Ketone - Negative Urine Specific [place] 1.015 Bedside Urine Occult Blood + Bedside Urine pH 5.5 Bedside Urine Protein - Negative Bedside Urine Urobilinogen +/- 1mg Bedside Urine Nitrite - Negative Bedside Urine Leukocytes - Negative Esterase Imaging Data Chest x-ray: Radiologist's Impression: [address] [id number] ReportSigned Patient: Luz Mireles RMR#: [id number]: 3Acct:[id number]/Sex: 66 / FDate of Service: 03/31/21Loc: EDAccession Number: [id number] Procedure: XR chest 1V Ordering Provider: Leix Smith D.O. PROCEDURE: XR CHEST 1V INDICATIONS: short of breath TECHNIQUE: One view of the chest was acquired. COMPARISON: [facility], , XR CHEST 1V, 10/17/2020, 21:15. FINDINGS: Surgical changes and devices: Sternotomy wires and mediastinal clips are present. Lungs and pleura: Diffuse interstitial prominence is seen throughout both lungs. No pleural effusion or pneumothorax is seen. Mediastinum: Mediastinal contours appear normal. Heart size is borderline enlarged. Bones and chest wall: No suspicious bony lesions. Overlying soft tissues appear unremarkable. IMPRESSION: Diffuse bilateral interstitial thickening and vascular prominence is suspicious for pulmonary edema/heart failure. There is no significant discrepancy when compared to the overnight Teleradiology report. Dictated by: Alvin Banks M.D. on 03/31/2021 at 7:46 Approved by: Alvin Banks M.D. on 03/31/2021 at 7:47 ECG Data Interpretation: Sinus rhythm Ventricular rate [address] ST depressions V4 V5 V6 No ST elevations normal QRS Normal axis MDM Narrative Medical decision making narrative: Signed out to Dr. Clements.Labs pedning. Dr clements: Received turned over. Reviewed patient's history and physical. And labs. Upon arrival patient was not in atrial fibrillation. She developed atrial fibrillation during her stay here. She had not taken her morning medications. She was given her morning medications see if this did not improve her symptoms. Her presentation today is consistent with CHF. Chest x-ray is consistent with pulmonary edema. BNP is also elevated. She was given Lasix. This did improve her symptoms significantly. Were able to wean her oxygen by nasal cannula. Afebrile. Low suspicion for pneumonia. Does have an elevated white blood cell count but is also on antibiotics for a right foot infection. I did remove her boot and sock from her right foot. There is no redness in the area. There is a dime-size ulceration on the bottom of her foot that appears very well. I did not feel given her presentation that she was septic and so antibiotics were held. She did have an elevated troponin. her Eliquis and clopidogrel were taken this morning. We will hold on heparin. I did consider other etiologies such as pulmonary embolism but she has been on her Eliquis on a daily basis and I feel that her presentation today is more consistent with CHF. I also have a higher suspicion that her elevated troponin is related to her CHF as well. We attempted to rate control her with her daily medications. She was also given multiple aliquots of metoprolol. These only improved her symptoms slightly. She was given 1 dose of digoxin. I did discuss cardioversion with her. We discussed the risks and benefits this. She states that she has had multiple attempts of cardioversion in the past and none of which have ever been successful. Given her improvement of respiratory status, lack of chest discomfort we will hold on cardioversion for now. I did discuss the case with Dr. Price with Internal Medicine at [facility] who accepts the patient transport. Patient is stable for transport. Discussed the need for transport with the patient. They all expressed understanding and agreement. <Emilio Clements, DO - Last Filed: 03/31/21 16:22> Critical Care Time Critical Care Time: Yes Total Critical Care Time: 65 Attestation: The high probability of a clinically significant, sudden or life threatening deterioration of the Respiratory, cardiovascular system(s) required my full and direct attention, intervention and personal management. The aggregate critical care time was 65 minutes. This time is in addition to time spent performing reported procedures but includes the following: [x] Data Review and interpretation [x] Patient assessment and monitoring of vital signs [x] Documentation [x] Medication orders and management Discharge Plan Departure Patient Disposition: [facility] Clinical Impression: CHF exacerbation, Shortness of breath, Atrial fibrillation with RVR, Hypoxia, Leukocytosis Prescriptions: No Action metoprolol succinate 25 mg tablet extended release 24 hr 50 mg PO DAILY RF: 0 Eliquis 5 mg tablet 5 mg PO BID RF: 0 losartan 50 mg tablet 50 mg PO BEDTIME RF: 0 clopidogrel 75 mg Tablet 75 mg PO DAILY RF: 0 nitroglycerin 0.4 mg Tablet, Sublingual 0.4 mg SUBLINGUAL Q5M PRN (Reason: PAIN) RF: 0 rosuvastatin 40 mg tablet 40 mg PO DAILY RF: 0 pregabalin 200 mg capsule 200 mg PO TID RF: 0 Jardiance 10 mg tablet 10 mg PO DAILY RF: 0 Referrals: Noah Ray MD [Primary Care Provider] -
[2021-03-31 06:57] LABS: Alanine Aminotransferase 53 IU/L (<35); Albumin 4.1 g/dL (3.5-5.0); Albumin Globulin Ratio 1.1 (1.0-2.8); Alkaline Phosphatase 121 U/L (38-126); Aspartate Aminotransferase 46 IU/L (14-36); BUN Creatinine Ratio 10.5 (6-22); Bilirubin Total 0.8 mg/dL (0.2-1.3); Blood Urea Nitrogen 11 mg/dL (7-17); Carbon Dioxide 27 mmol/L (22-32); Chloride 110 mmol/L (98-107); Creatine Kinase 304 U/L (30-135); Estimated Glomerular Filt Rate 52.1 mL/min (>60); Globulin 3.9 g/dL (1.7-4.1); Glucose 198 mg/dL (80-110); HEMOLYSIS 15 (0-50); Potassium 3.7 mmol/L (3.4-5.1); Sodium 145 mmol/L (137-145)
[2021-03-31 07:06] LABS: NT-proBNP (BNP-Adult 18+) 5330 pg/mL (<125)
[2021-03-31 07:12] LABS: CKMB % Relative Index 1.1 % (1.5-5.0); Creatine Kinase MB 3.48 ng/mL (<2.37)
[2021-03-31 07:14] LABS: Procalcitonin 0.06 ng/mL (<0.5)
[2021-03-31 07:33] LABS: Troponin I 0.699 ng/mL (0.01-0.034)
[2021-03-31 07:57] LABS: PTT Partial Thromboplastin Tim 34 SECONDS (26.4-36.2)
--- NOTE | 2021-03-31 07:59 | PC.NURSE ---
This nurse removed NRB mask @ 10L and placed patient on 6L nasal cannula. Patient O2 sat 95-96%. Patient states this feels better. Will continue to monitor patient O2 sats and comfort.
[2021-03-31 08:02] LABS: INR 1.4 (0.9-1.3); Prothrombin Time 15.8 SECONDS (10.1-12.7)
[2021-03-31 08:38] LABS: Reflexed Lactate in 2 Hours Y
[2021-03-31] MEDS: METOPROLOL TARTRATE 5 MG/5 ML INJ IV ×2 (09:02→09:38)
[2021-03-31 09:44] LABS: Lactate 2HR (Lactic Acid Rflx) 1.4 mmol/L (0.7-2.1)
[2021-03-31 11:44] LABS: Bacteria Urine None Seen; Culture Indicated Urine Cult Not Indicated; RBC Urine None Seen (0-5/HPF); Urine Comments Microscopic Normal; WBC Urine None Seen (0-5/HPF)
--- NOTE | 2021-03-31 12:49 | PC.NURSE ---
Notified Dr Clements of patient's change in condition, reporting feeling over heated with resulting chills.
[2021-03-31] MEDS: DIGOXIN 500 MCG/2 ML AMPUL 250 MCG IV (14:02)
[2021-03-31 14:18] LABS: Digoxin < 0.4 ng/mL (0.8-2.0)
== END 2021-03-31 16:30 | disposition short-term general hospital (02) ==
PROVIDERS: Emergency Medicine; Emergency Provider Emergency Medicine; Family Provider Internal Medicine; PCP Internal Medicine
DX: I50.9 Heart failure, unspecified (principal); R06.02 Shortness of breath; I48.20 Chronic atrial fibrillation, unspecified; Z79.01 Long term (current) use of anticoagulants; R09.02 Hypoxemia; D72.829 Elevated white blood cell count, unspecified; Z20.822 Contact with and (suspected) exposure to COVID-19
CPT/HCPCS: 36415; 71045; 80053; 80162; 81003; 81015; 82550; 82553; 83605; 83735; 83880; 84145; 84484; 85025; 85610; 85730; 87040; 87635; 93005; 93010; 96374; 96375; 96376; 99285; 99291; 99292; C9803; J1160; J1940

== ENCOUNTER → 2021-04-05 09:51 | Outpatient (CLI) | payer MEDICARE, OTHER, SELFPAY ==
[2021-03-22 11:35] VITALS: BMI 34.7
== END ==
PROVIDERS: Family Provider Internal Medicine; PCP Internal Medicine; Referring Provider Internal Medicine; Visit Provider Family Medicine
DX: E11.621 Type 2 diabetes mellitus with foot ulcer (principal); L97.412 Non-pressure chronic ulcer of right heel and midfoot with fat layer exposed; L84 Corns and callosities; L53.8 Other specified erythematous conditions; E11.40 Type 2 diabetes mellitus with diabetic neuropathy, unspecified
CPT/HCPCS: 99213; 99214

== ENCOUNTER → 2021-04-12 09:31 | Outpatient (CLI) | payer MEDICARE, OTHER, SELFPAY ==
[2021-03-22 11:35] VITALS: BMI 34.7
[2021-04-12 11:53] LABS: Add Manual Diff / Slide Review NO; Basophils Absolute Auto 100 /uL (0-100); Basophils Percent Auto 1.3 % (0-2); Eosinophils Absolute Auto 200 /uL (0-450); Eosinophils Percent Auto 3.7 % (2-4); Hematocrit 42.5 % (36-46); Hemoglobin 13.9 g/dL (12.0-16.0); Lymphocytes Absolute Auto 1900 /uL (1100-4500); Lymphocytes Percent Auto 30.5 % (25-40); Mean Corpuscular HGB Conc 32.7 % (30-36); Mean Corpuscular Hemoglobin 28.9 PG (26-34); Mean Corpuscular Volume 88.4 fL (80-100); Monocytes Absolute Auto 500 /uL (0-900); Monocytes Percent Auto 7.8 % (3-14); Neutrophils Absolute Auto 3400 /uL (1500-7000); Neutrophils Percent Auto 56.7 % (50-75); Platelet Count 270 X10^3/uL (150-400); Red Cell Distribution Width 14.9 % (11.6-14.8); White Blood Cell Count 6.1 X10^3/uL (4.5-11.0)
[2021-04-12 18:30] LABS: Erythrocyte Sedimentation Rate 17 MM/HR (0-20)
== END ==
PROVIDERS: Family Provider Internal Medicine; PCP Internal Medicine; Referring Provider Family Medicine; Visit Provider Family Medicine
DX: L08.89 Other specified local infections of the skin and subcutaneous tissue (principal)
CPT/HCPCS: 36415; 85025; 85651; 86140

== ENCOUNTER → 2021-04-12 09:56 | Outpatient (CLI) | payer MEDICARE, OTHER, SELFPAY ==
[2021-03-22 11:35] VITALS: BMI 34.7
== END ==
PROVIDERS: Family Provider Internal Medicine; PCP Internal Medicine; Referring Provider Internal Medicine; Visit Provider Family Medicine
DX: E11.621 Type 2 diabetes mellitus with foot ulcer (principal); L97.512 Non-pressure chronic ulcer of other part of right foot with fat layer exposed; D72.829 Elevated white blood cell count, unspecified; I50.9 Heart failure, unspecified; I25.10 Atherosclerotic heart disease of native coronary artery without angina pectoris; R23.2 Flushing; L08.89 Other specified local infections of the skin and subcutaneous tissue
CPT/HCPCS: 36415; 85025; 85651; 86140; 87070; 87077; 87186; 87205; 99213; 99214

== ENCOUNTER → 2021-04-19 08:55 | Outpatient (CLI) | payer MEDICARE, OTHER, SELFPAY ==
[2021-03-22 11:35] VITALS: BMI 34.7
== END ==
PROVIDERS: Family Provider Internal Medicine; PCP Internal Medicine; Referring Provider Internal Medicine; Visit Provider Family Medicine
DX: E11.621 Type 2 diabetes mellitus with foot ulcer (principal); L97.512 Non-pressure chronic ulcer of other part of right foot with fat layer exposed; B95.7 Other staphylococcus as the cause of diseases classified elsewhere
CPT/HCPCS: 99213; 99214

== ENCOUNTER → 2021-04-23 13:54 | Outpatient (CLI) | payer MEDICARE, OTHER, SELFPAY ==
[2021-03-22 11:35] VITALS: BMI 34.7
--- NOTE | 2021-04-23 | DI.MRI.S_ITS ---
PROCEDURE: MR FOOT RT WO/W CON INDICATIONS: Non-pressure chronic ulcer of other part of right TECHNIQUE: Noncontrast coronal T1 spin echo and STIR, sagittal T1 spin echo with fat saturation and STIR, axial T1 spin echo and T2 fast spin echo with fat saturation. After the administration of contrast, axial/sagittal/coronal T1 spin echo with fat saturation through the right forefoot . COMPARISON: [facility], MR, MR FOOT RT WO/W CON, 03/22/2021, 12:01. FINDINGS: Image quality: Excellent. Bones: The visualized bone marrow demonstrates normal signal on all sequences. The overlying cortex appears intact. Small metatarsal head effusions are seen. No abnormal intraosseous enhancement. Soft tissues: No soft tissue masses are visualized. The scanned muscles demonstrate normal overall bulk and internal signal. Reticulated and confluent T2 hyperintense/T1 hypointense signal is seen in the soft tissues, most prominent along the dorsal aspect, compatible with edema. The patient's known ulcer is seen (series 8, image 17) along the plantar surface of the 2nd proximal phalanx base. Small amount of fluid between the 3/4 metatarsal heads, which may reflect bursitis. No abnormal soft tissue enhancement. IMPRESSION: 1. No abnormal signal to suggest acute osteomyelitis. 2. Diffuse soft tissue edema, most prominent in the dorsal aspect. 3. Small 1st to 5th metatarsal effusions, which may be reactive. 4. Small amount of fluid between the 3/4 metatarsal heads, which may reflect bursitis. Dictated by: Martinez Danielson M.D. on 04/23/2021 at 16:21 Approved by: Martinez Danielson M.D. on 04/23/2021 at 16:39
== END ==
PROVIDERS: Family Provider Internal Medicine; PCP Internal Medicine; Referring Provider Family Medicine; Visit Provider Family Medicine
DX: E11.621 Type 2 diabetes mellitus with foot ulcer (principal); L97.512 Non-pressure chronic ulcer of other part of right foot with fat layer exposed; M25.474 Effusion, right foot
CPT/HCPCS: 73720; A9579

== ENCOUNTER → 2021-04-27 08:30 | Outpatient (CLI) | payer MEDICARE, OTHER, SELFPAY ==
[2021-03-22 11:35] VITALS: BMI 34.7
== END ==
PROVIDERS: Family Provider Internal Medicine; PCP Internal Medicine; Referring Provider Internal Medicine; Visit Provider Family Medicine
DX: E11.49 Type 2 diabetes mellitus with other diabetic neurological complication (principal)
CPT/HCPCS: 99213